=== PATIENT | female | born 1945 | race Caucasian/White ===

== ENCOUNTER 2016-12-29 18:29 | Inpatient (IN) | payer OTHER ==
[~2016-12-29] VITALS: Ht 144.8 cm; Wt 53.1 kg
--- NOTE | 2016-12-29 19:34 | NUR ---
PER WHO SPEAKS FOR PT, STATES THAT PT HAS BEEN SOB WITH ANY ACTIVITY SINCE LAST PM, WENT TO [facility] TODAY AND HAD TO STOP TO CATCH BREATH SEVERAL TIMES, WINDED UPON ARRIVAL TO ROOM.
[2016-12-29] MEDS ORDERED: ATORVASTATIN CA20 M1 PO (19:36)
[2016-12-29] MEDS ORDERED: PIOGLITAZONE HC15 MG PO (19:37)
[2016-12-29] MEDS ORDERED: LANSOPRAZOLE30 M2 PO (19:37)
[2016-12-29] MEDS ORDERED: FENOFIBRATE145 M1 PO (19:37)
[2016-12-29] MEDS ORDERED: JANUVIA100 M1 PO (19:37)
[2016-12-29] MEDS ORDERED: METOPROLOL SUCC25 M1 PO (19:37)
--- NOTE | 2016-12-29 19:50 | NUR ---
LABS YAMELW AND SENT SST,LAV,BLUE, AND BLAND DRAWN AND SENT
[2016-12-29 20:11] LABS: ABSOLUTE BASOPHIL COUNT 0 /CUMM (0.0-0.2); ABSOLUTE EOSINOPHIL COUNT 0.1 /CUMM (0.0-0.7); ABSOLUTE GRANULOCYTE CT 4.6 /CUMM (1.4-6.5); ABSOLUTE LYMPH COUNT 1.9 /CUMM (1.2-3.4); ABSOLUTE MONOCYTE COUNT 0.5 /CUMM (0.10-0.60); BASOPHIL % 0.4 % (0.0-2.0); GRANULOCYTE % 64.3 % (42.2-75.2); HEMATOCRIT 27.4 % (37-47); MEAN CORPUSCULAR HGB 27.3 PG (27.0-31.0); MEAN CORPUSCULAR HGB CONC 32.3 G/DL (33.0-37.0); MEAN CORPUSCULAR VOLUME 84.4 FL (81.0-99.0); MEAN PLATELET VOLUME 9.3 FL (7.4-10.4); PLATELET COUNT 264 /CUMM (130-400); RBC DISTRIBUTION WIDTH 15.5 % (11.5-14.5); RED BLOOD CELL CT 3.25 /CUMM (4.20-5.40); WHITE BLOOD CELL COUNT 7.2 /CUMM (4.8-10.8)
--- NOTE | 2016-12-29 20:13 | ED DYSPNEA/ASTHMA COMPLAINT ---
History of Present Illness General Chief Complaint: Dyspnea (COPD, CHF, Other) Stated Complaint: SOB; 02 95% AT [employer] Source: patient, family Exam Limitations: no limitations Vital Signs & Intake/Output Vital Signs & Intake/Output Vital Signs Date Time Temp Pulse Resp B/P Pulse O2 O2 Flow FiO2 Ox Delivery Rate 12/29 2019 96 12/29 1935 97.3 85 22 170/74 95 Room Air Allergies Coded Allergies: NO KNOWN ALLERGIES (12/29/16) Reconcile Medications Albuterol Sulfate (Proair Hfa) 90 MCG HFA.AER.AD 2 PUF INH Q4-6 PRN PRN ASTHMA (Reported) Aspirin (Ecotrin*) 81 MG TABLET.DR 1 TAB PO DAILY HEART (Reported) Atorvastatin Calcium 20 MG TABLET 1 TAB PO DAILY CHOL (Reported) Buspirone HCl 10 MG TABLET 10 MG PO DAILY ANXIETY (Reported) Dextroamphetamine/Amphetamine (Dextroamp-Amphetamine 5 MG Tab) 5 MG TABLET 1 TAB PO DAILY ADHD (Reported) Fenofibrate Nanocrystallized (Fenofibrate) 145 MG TABLET 1 TAB PO DAILY OSTEO (Reported) Furosemide (Lasix) 20 MG TABLET 1 TAB PO DAILY CHF Glimepiride 2 MG TABLET 1 TAB PO DAILY DM (Reported) Hydrochlorothiazide 25 MG TABLET 1 TAB PO DAILY HTN (Reported) Lansoprazole 30 MG CAPSULE.DR 1 CAP PO DAILY GERD (Reported) Losartan (Cozaar) 100 MG TABLET 100 MG PO DAILY HTN (Reported) Metformin HCl 500 MG TABLET 1,000 MG PO BID DM (Reported) Metoprolol Succinate 25 MG TAB 1 TAB PO DAILY HTN (Reported) Sitagliptin Phosphate (Januvia) 100 MG TABLET 1 TAB PO DAILY DM (Reported) Triage Note: PER WHO SPEAKS FOR PT, STATES THAT PT HAS BEEN SOB WITH ANY ACTIVITY SINCE LAST PM, WENT TO [facility] TODAY AND HAD TO STOP TO CATCH BREATH SEVERAL TIMES, WINDED UPON ARRIVAL TO ROOM. Triage Nurses Notes Reviewed? yes HPI: 71-year-old female history of asthma who started feeling short of breath last night, symptoms improved this morning. She went to [facility] today and throughout the day she was having significant dyspnea on exertion that was minimally improved with her inhaler and minimally improved with rest. She had to use her inhaler approximately 15 times today and stop to rest after walking a short distance. She denies any fever or flulike illness. She has a minimal cough without production. She has no leg swelling or edema. She has been eating more salty food lately and is on hydrochlorothiazide for blood pressure control. She has no history of heart failure. She denies any chest pain or fever. Her was sick with bronchitis last week. She is a nonsmoker. (IBIS LICEA) Past History Travel History Traveled to [place] past 21 day No Medical History Any Pertinent Medical History? see below for history Neurological: NONE EENT: NONE Cardiovascular: HTN,CHOL Respiratory: asthma Gastrointestinal: NONE Hepatic: NONE Renal: NONE Musculoskeletal: NONE Psychiatric: NONE Endocrine: DM Surgical History Surgical History: non-contributory Psychosocial History What is your primary language Japanese Tobacco Use: Never used Family History Hx Contributory? No (IBIS LICEA) Review of Systems Review of Systems Constitutional: Reports: see HPI. EENTM: Reports: no symptoms. Respiratory: Reports: see HPI. Cardiovascular: Reports: no symptoms. GI: Reports: no symptoms. Genitourinary: Reports: no symptoms. Musculoskeletal: Reports: no symptoms. Skin: Reports: no symptoms. Neurological/Psychological: Reports: no symptoms. Hematologic/Endocrine: Reports: no symptoms. Immunologic/Allergic: Reports: no symptoms. All Other Systems: Reviewed and Negative (IBIS LICEA) Physical Exam Physical Exam General Appearance: well developed/nourished Respiratory: chest non-tender Rectal: normal exam, heme positive stool (brown stool ) Comments: Well-developed well-nourished person in no acute distress HEENT: Normal EENT exam, extraocular motion intact, no nystagmus. Pupils equally round and reactive to light. Nose is atraumatic. Pharynx normal. No swelling or edema. Neck: Supple, no lymphadenopathy, normal range of motion without pain or tenderness Back: Nontender, no CVA tenderness. Full range of motion Cardiovascular: Regular rate and rhythms no murmurs, normal JVP Respiratory: Chest nontender. No respiratory distress. Crackles noted bilaterally right greater than left lower lungs. Abdomen: Soft, nontender nondistended, no appreciable organomegaly. Normal bowel sounds. No ascites Extremity: No edema, no calf tenderness to palpation, normal and equal pulses. Neuro: Alert oriented x3, motor sensory normal, cranial nerves II through XII grossly intact. Skin: No appreciable rash on exposed skin, skin is warm and dry. Psych: Mood and affect is normal, memory and judgment is normal. Core Measures ACS in differential dx? Yes Severe Sepsis Present: No Septic Shock Present: No (JAVIER VIGIL,IBIS) Progress Differential Diagnosis: asthma, AMI, altitude sickness, bronchitis, costochondritis, CHF, COPD, musculoskeletal pain, pericarditis, pulmonary embolism, pneumonia, pneumothorax, rib fracture, unstable angina Plan of Care: Orders Procedure Date/time Status URINALYSIS 12/29 2131 Active Add-on Test (ER Only) 12/29 2010 Active B-TYPE NATRIURETIC PEP (BNP) 12/29 1947 Complete TROPONIN LEVEL 12/29 1925 Complete LIPASE 12/29 1925 Complete HEPATIC FUNCTION PANEL 12/29 1925 Complete D-DIMER 12/29 1925 Complete CBC WITHOUT DIFFERENTIAL 12/29 1925 Complete BASIC METABOLIC PANEL 12/29 1925 Complete AMYLASE 12/29 1925 Complete EKG 12/29 1904 Active Laboratory Tests 12/29/162129: Urine Color Pending, Urine Clarity Pending, Urine pH Pending, Ur Specific [place] Pending, Urine Protein Pending, Urine Ketones Pending, Urine Nitrite Pending, Urine Bilirubin Pending, Urine Urobilinogen Pending, Ur Leukocyte Esterase Pending, Ur Microscopic SEDIMENT EXAMINED, Urine RBC Pending, Urine Hemoglobin Pending, Urine Glucose Pending 12/29/161947: Anion Gap 12, Estimated GFR 34 L, BUN/Creatinine Ratio 15.3, Glucose 159 H, Calcium 8.9, Total Bilirubin 0.4, Direct Bilirubin 0.4, AST 37 H, ALT 35, Alkaline Phosphatase 43, Troponin I 0.02, Qhz-K-Dtkluwwfnmw Pept 804 H, Total Protein 7.1, Albumin 3.8, Amylase 76, Lipase 419 H, D-Dimer 202, CBC w Diff NO MAN DIFF REQ, RBC 3.25 L, MCV 84.4, MCH 27.3, RDW 15.5 H, MPV 9.3, Gran % 64.3 , Lymphocytes % 26.5, Monocytes % 6.8, Eosinophils % 2.0, Basophils % 0.4, Absolute Granulocytes 4.6, Absolute Lymphocytes 1.9, Absolute Monocytes 0.5, Absolute Eosinophils 0.1, Absolute Basophils 0, PUBS MCHC 32.3 L Diagnostic Imaging: Viewed by Me: Radiology Read. Discussed w/RAD: Radiology Read. CXR Impression: PATIENT: HEISNER,NATHAN ANDREW PRESENT AGE: 71 PATIENT ACCOUNT NO: [id number] : 45 LOCATION: [facility] ORDERING PHYSICIAN: GONZALO GUERRERO MD SERVICE DATE: 12/29/16 EXAM TYPE: RAD - XRY-CHEST XRAY, PA AND LATERAL EXAMINATION: XR CHEST CLINICAL INFORMATION: Dyspnea. COMPARISON: Multiple priors, most recent chest radiographs dated 2013. TECHNIQUE: PA and lateral views of the chest were obtained. FINDINGS: There are increased bilateral interstitial markings, new since the prior examination. There is no focal consolidation. There are new trace bilateral pleural effusions. There is no pneumothorax. The cardiomediastinal silhouette is mildly enlarged. The visualized osseous structures are within normal limits. IMPRESSION: 1. New increased bilateral interstitial markings without focal consolidation. 2. New trace bilateral pleural effusions. 3. Mild cardiomegaly. DICTATED BY: YIMI MARTINO MD DATE/TIME DICTATED:12/29/162022 MECHANICAL ENGINEER:SOFÍA Initial ED EKG: NSR, rate (80), nonspecific ST T wave chg Prior EKG: unchanged Rhythm Strip: normal sinus rhythm Comments: DuoNeb treatment given minimal relief. Patient reevaluated, still with mild shortness of breath and crackles noted bilaterally X-rays consistent with CHF . BNP elevated 800, we'll treat with Lasix, this is new onset CHF. She has also new anemia and mildly heme-positive stool that is brown. She will need admission for workup of this as well. I do not feel as though she has an acute GI bleed. She is given Lasix 40 mg IV. patient will require admission to look telemetry service, Dr. Guerrero to call promotions specialist for admission (IBIS LICEA) Departure Departure Disposition: HOME OR SELF CARE Condition: Stable Clinical Impression Primary Impression: CHF (congestive heart failure) Qualifiers: Congestive heart failure type: unspecified congestive heart failure type Congestive heart failure chronicity: acute Qualified Code: I50.9 - Heart failure, unspecified Secondary Impressions: Anemia Qualifiers: Anemia type: unspecified type Qualified Code: D64.9 - Anemia, unspecified Heme positive stool Referrals: CRISTOFER GRAY,ANDREW Min (PCP/Family) Departure Forms: Customer Survey General Discharge Information Prescriptions: Current Visit Scripts Furosemide (Lasix) 1 TAB PO DAILY #30 TAB Admission Note Documentation of Exam: Documentation of any treatments & extenuating circumstances including Concerns Regarding Discharge (functional status, medication knowledge or non-compliance, living conditions, etc.) that warrant an admission rather than observation: Patient with new onset CHF, short of breath with exertion, new anemia with heme positive stool that is brown. She will require admission to the hospital. Cardiology evaluation, echo, IV Lasix, monitoring stool for blood. (IBIS LICEA) Admission Note [facility] Documentation of Exam: Documentation of any treatments & extenuating circumstances including Concerns Regarding Discharge (functional status, medication knowledge or non-compliance, living conditions, etc.) that warrant an admission rather than observation: pt with new onset chf as above, merits iv lasix, 02 support, and cardiology evaluation PA/SMOKE JUMPER Co-Sign Statement Statement: ED Attending supervision documentation- [x I saw and evaluated the patient. I have also reviewed all the pertinent lab results and diagnostic results. I agree with the findings and the plan of care as documented in the PA's/SMOKE JUMPER's documentation. [] I have reviewed the ED Record and agree with the PA's/SMOKE JUMPER's documentation. [] Additions or exceptions (if any) to the PAs/SMOKE JUMPER's note and plan are summarized below: [] (KT GRAY,GONZALO Jean) Critical Care Note Critical Care Note Critical Care Time: non-applicable (IBIS LICEA)
--- NOTE | 2016-12-29 20:31 | RADIOLOGY REPORT ---
EXAMINATION: XR CHEST CLINICAL INFORMATION: Dyspnea. COMPARISON: Multiple priors, most recent chest radiographs dated 03/04/2014. TECHNIQUE: PA and lateral views of the chest were obtained. FINDINGS: There are increased bilateral interstitial markings, new since the prior examination. There is no focal consolidation. There are new trace bilateral pleural effusions. There is no pneumothorax. The cardiomediastinal silhouette is mildly enlarged. The visualized osseous structures are within normal limits. IMPRESSION: 1. New increased bilateral interstitial markings without focal consolidation. 2. New trace bilateral pleural effusions. 3. Mild cardiomegaly.
--- NOTE | 2016-12-29 20:57 | NUR ---
PER RESIDENT SHAJI +. REMAINS SOB AT REST, PT VERY ANXIOUS. ALERT
--- NOTE | 2016-12-29 21:44 | NUR ---
MD AT BEDSIDE/ EMOTIONAL SUPPORT GIVEN, PT AND EDUCATED ON CHF.
--- NOTE | 2016-12-29 22:30 | NUR ---
HOUSESTAFF AT BEDSIDE,
[2016-12-29] MEDS ORDERED: METFORMIN HCL500 M3 PO (22:50)
[2016-12-29] MEDS ORDERED: HYDROCHLOROTHIA25 M1 PO (22:51)
[2016-12-29] MEDS ORDERED: PROAIR HFA8.5 GM INH (22:51)
[2016-12-29] MEDS ORDERED: DEXTROAMP-AMPHET5 MG PO (22:51)
[2016-12-29] MEDS ORDERED: ASPIRIN EC81 M1 PO (22:52)
--- NOTE | 2016-12-29 22:52 | NUR ---
MED LIST UPDATED JUST ARRIVED WITH LIST.
--- NOTE | 2016-12-29 23:15 | History & Physical ---
STONEY GRAY,[facility]AN[facility] MD [facility] 12/29/16 2310: General Information and HPI MD Statement: I have seen and personally examined NATHAN TIDWELL and documented this H&P. The patient is a 71 year old F who presented with a patient stated chief complaint of [shortness of breath upon walking]. Source of Information: patient Exam Limitations: no limitations History of Present Illness: This is a 71-year-old female with a past medical history significant for diabetes recent HbA1c of 8 per patient, hypertension, hyperlipidemia, asthma, GERD, that presented to the emergency room this evening with a chief complaint of shortness of breath upon exertion. Off note, patient has never been admitted to [facility] before. Patient states that today she went with her family to near [facility] and noted that she had to catch her breath after every half a city block. She thought this was secondary to her asthma and Using her inhaler up to 10 times throughout the day. She came home this evening and her dyspnea persisted this bite again using inhalers and presented to the emergency room. Denied any chest pain, nausea, vomiting, diarrhea fevers or chills. Has denied such episode before or asthma related admission or intubation. In the emergency room her chest x-ray revealed pleural effusions with an elevated proBNP and she was given Lasix with adequate diuresis. Upon my examination of the patient she stated that her dyspnea has significantly improved. PCP- Dr. Umu Thayer Endo- Dr. Nathaniel Peralta Allergies/Medications Allergies: Coded Allergies: NO KNOWN ALLERGIES (12/29/16) Past History Travel History Traveled to [place] past 21 day No Medical History Blood Transfusion Hx: No Neurological: NONE EENT: NONE Cardiovascular: HTN,CHOL Respiratory: asthma Gastrointestinal: NONE Hepatic: NONE Renal: NONE Musculoskeletal: NONE Psychiatric: NONE Endocrine: DM Surgical History Surgical History: non-contributory Past Family/Social History Family History Relations & Conditions if any FATHER, ; Cause: Myocardial infarct. MOTHER, ; Cause: Dementia. Psychosocial History Where do you live? Home Who Do You Live With? spouse Services at Home: Oxygen Primary Language: Montenegrin Smoking Status: Never Smoked ETOH Use: occasional use Illicit Drug Use: denies illicit drug use Functional Ability ADLs Independent: dressing, eating, toileting, bathing. IADLs Independent: shopping, housework, finances, food prep, telephone, transportation , medication admin. Employment History Employment Retired Review of Systems Review of Systems Constitutional: Reports: see HPI. Exam & Diagnostic Data Last 24 Hrs of Vital Signs/I&O Vital Signs Date Time Temp Pulse Resp B/P Pulse O2 O2 Flow FiO2 Ox Delivery Rate 12/299 97.6 73 18 162/72 99 Room Air 12/29 2019 96 12/29 1935 97.3 85 22 170/74 95 Room Air Physical Exam General Appearance Alert, Oriented X3, Cooperative, No Acute Distress Skin No Rashes, No Breakdown HEENT Atraumatic, PERRLA, EOMI Neck No JVD, No thryomegaly Cardiovascular Regular Rate, Normal S1, Normal S2, No Murmurs Lungs Normal Air Movement, faint bi-basilar crackles Abdomen Normal Bowel Sounds, Soft, No Tenderness, No Hepatospenomegaly, No Masses Neurological Normal Speech, Strength at 5/5 X4 Ext, Normal Tone, Sensation Intact, Cranial Nerves 3-12 NL, Reflexes 2+ Extremities No Clubbing, No Cyanosis, trace b/l LE edema Last 24 Hrs of Labs/Gutierrez: Laboratory Tests 12/29/162129: Urine Color YEL, Urine Clarity CLEAR, Urine pH 6.0, Ur Specific [place] 1.020, Urine Protein NEG, Urine Ketones NEG, Urine Nitrite NEG, Urine Bilirubin NEG, Urine Urobilinogen 0.2, Ur Leukocyte Esterase NEG, Ur Microscopic SEDIMENT EXAMINED, Urine RBC 3-5, Urine Hemoglobin TRACE-INTACT, Urine Glucose NEG 12/29/16 1948: Anion Gap 12, Estimated GFR 34 L, BUN/Creatinine Ratio 15.3, Glucose 159 H, Calcium 8.9, Total Bilirubin 0.4, Direct Bilirubin 0.4, AST 37 H, ALT 35, Alkaline Phosphatase 43, Troponin I 0.02, Gan-Y-Bguzsiiljfu Pept 804 H, Total Protein 7.1, Albumin 3.8, Amylase 76, Lipase 419 H, D-Dimer 202, CBC w Diff NO MAN DIFF REQ, RBC 3.25 L, MCV 84.4, MCH 27.3, RDW 15.5 H, MPV 9.3, Gran % 64.3 , Lymphocytes % 26.5, Monocytes % 6.8, Eosinophils % 2.0, Basophils % 0.4, Absolute Granulocytes 4.6, Absolute Lymphocytes 1.9, Absolute Monocytes 0.5, Absolute Eosinophils 0.1, Absolute Basophils 0, PUBS MCHC 32.3 L Diagnostic Data EKG Results Rate 61, [place] 144, QRS 78, QTC 456 Sinus rhythm CXR Results IMPRESSION: 1. New increased bilateral interstitial markings without focal consolidation. 2. New trace bilateral pleural effusions. 3. Mild cardiomegaly. Assessment/Plan Assessment: In summary this is a 71-year-old female the past medical history significant for hypertension, hyperlipidemia, diabetes, asthma that presented today with dyspnea on exertion with alleviation at rest. She tried using her inhaler multiple times greater than 10 with no alleviation of her symptoms. She presented to the emergency room was found to have bibasilar crackles on exam, pleural effusions on chest x-ray and a proBNP of greater than 800. She was given 40 mg of IV Lasix and has diuresis 970 mL thus far with modest alleviation of her symptoms. She holds no previous history of any cardiovascular disease apart from hypertension but does have a family history of a myocardial infarction in her father. This could likely be new onset congestive heart failure, she has no previous echocardiogram in our EMR system Neider that she see a division controller. Assessment- 1. Congestive heart failure, new onset 2. Hypertension 3. Hyperlipidemia 4. Chronic asthma 5. Possible GENI on CKD (baseline creatinine unknown) 6. Diabetes mellitus 7. Anemia, likely chronic 8. Elevated lipase, 419, without any signs or symptoms of abdominal discomfort, unrelated Plan- Admit to telemetry Trending troponin and EKG Will hold Lasix for now, recheck renal function in the morning and decide dose accordingly Echocardiogram Strict I's and O's Daily weight Low-salt/CHF diet Continue beta nabila, hold hydrochlorothiazide Continue statin, hold fibrate TRC evaluation and nebs Accu-Cheks and low-dose insulin sliding scale Will check thyroid studies, iron studies, HbA1c with morning labs DVT prophylaxis with subcutaneous heparin Mild pain when necessary pathway CHF diet Full code Will need records from her PCP and ingot buggy operator in the morning to evaluate her anemia and renal function As Ranked By This Provider Problem List: 1. CHF (congestive heart failure) Qualifiers Congestive heart failure type: unspecified congestive heart failure type Congestive heart failure chronicity: acute Qualified Code: I50.9 - Heart failure , unspecified 2. Anemia Qualifiers Anemia type: unspecified type Qualified Code: D64.9 - Anemia, unspecified Core Measures/Miscellaneous Acute Coronary Syndrome ACS Diagnosis: No Cerebrovascular Accident CVA/TIA Diagnosis: No Congestive Heart Failure CHF Diagnosis: Yes JAVED/ARB for EF <40%: No Venous Thromboembolism VTE Risk Factors: Age > 40 VTE Prophylaxis Ordered Inpt: [facility] prophylaxis d/t: No contraindications No VTE Pharm Prophylaxis d/t: No contraindications VTE Diagnosis: No VTE Type: NONE VTE Confirmed by (Test): NONE Severe Sepsis Severe Sepsis Present: No Septic Shock Septic Shock Present: No Miscellaneous Documentation Attending Case Discussed With: Dr. Pollard Primary Care Physician: UMU [place] MD Patient sees these Specialists Endo- Dr. Nathaniel Peralta Level of Patient Care: Telemetry Resident Review Statement Resident Statement: examined this patient, discussed with cad intern CARLY RAMOS MD 12/30/16 1137: Exam & Diagnostic Data Last 24 Hrs of Vital Signs/I&O Vital Signs Date Time Temp Pulse Resp B/P Pulse O2 O2 Flow FiO2 Ox Delivery Rate 12/30 0902 118/66 12/30 0800 98.1 70 18 118/66 95 Room Air 12/30 0215 97.6 78 20 142/72 95 Room Air 12/30 0150 Room Air 12/30 0031 72 20 155/70 98 Room Air 12/29 2239 97.6 73 18 162/72 99 Room Air 12/29 2020 96 12/29 1936 97.3 85 22 170/74 95 Room Air Intake & Output 12/30 1600 12/30 0800 12/30 0000 Intake Total 300 Output Total 570 970 Balance -270 -970 Intake, Oral 300 Output, Urine 570 970 Patient 120 lb 135 lb Weight Attending MD Review Statement Attending Statement Attending MD Statement: examined this patient, discuss w/resident/PA/SALES CONTRACTS ANALYST, agreed w/resident/PA/SALES CONTRACTS ANALYST, discussed with family, reviewed EMR data (avail), discussed with nursing, reviewed images Attending Assessment/Plan: The patient is a 71-year-old woman with a past medical history of diabetes mellitus, hypertension, hyperlipidemia who presents with new onset congestive heart failure. The etiology at this time is unclear, and there was no clear precipitating factors of dietary indiscretion. Given her cardiac risk equivalence, a further workup including an echocardiogram as well as stress testing to exclude a burden of ischemia (nuclear stress testing) will be performed. The patient is well has significant iron deficiency anemia follow-up for this will be obtained, including possible consultation with GI. The patient appears to is well has mild renal dysfunction. We will obtain prior history to determine the chronicity of the same. An JAVED inhibitor/ARB will not be initiated at this time due to the same. KAREN GRAY,[facility] 02/17/17 1142: General Information and HPI Allergies/Medications Home Med list Albuterol Sulfate (Proair Hfa) 90 MCG HFA.AER.AD 2 PUF INH Q4-6 PRN PRN ASTHMA (Reported) Aspirin (Ecotrin*) 81 MG TABLET.DR 1 TAB PO DAILY HEART (Reported) Atorvastatin Calcium 20 MG TABLET 1 TAB PO DAILY CHOL (Reported) Buspirone HCl 10 MG TABLET 10 MG PO DAILY ANXIETY (Reported) Dextroamphetamine/Amphetamine (Dextroamp-Amphetamine 5 MG Tab) 5 MG TABLET 1 TAB PO DAILY ADHD (Reported) Fenofibrate Nanocrystallized (Fenofibrate) 145 MG TABLET 1 TAB PO DAILY OSTEO (Reported) Furosemide (Lasix) 20 MG TABLET 1 TAB PO DAILY CHF Glimepiride 2 MG TABLET 1 TAB PO DAILY DM (Reported) Hydrochlorothiazide 25 MG TABLET 1 TAB PO DAILY HTN (Reported) Lansoprazole 30 MG CAPSULE.DR 1 CAP PO DAILY GERD (Reported) Losartan (Cozaar) 100 MG TABLET 100 MG PO DAILY HTN (Reported) Metformin HCl 500 MG TABLET 1,000 MG PO BID DM (Reported) Metoprolol Succinate 25 MG TAB 1 TAB PO DAILY HTN (Reported) Sitagliptin Phosphate (Januvia) 100 MG TABLET 1 TAB PO DAILY DM (Reported) Addendum Addendum This document was sent to me in error, patient was seen by another attending physician. I personally notified medical records. Samir Pollard MD [facility]
--- NOTE | 2016-12-30 00:31 | NUR ---
12 AM TROP AND EKG DONE NO DIFF URINATING.
--- NOTE | 2016-12-30 00:38 | NUR ---
FINGERSTICK GLUCOSE LEVEL READING 70
--- NOTE | 2016-12-30 00:42 | NUR ---
REPORT TO TELE. PT STABLE FBS 70 PER WOULD LIKE PT TO HAVE SOMETHING FOR THAT BS. GIVEN O.J.
--- NOTE | 2016-12-30 00:43 | NUR ---
TOTAL OUTPUT S/P LASIX 1030 CCS
--- NOTE | 2016-12-30 01:08 | NUR ---
PT ASSIGNED TO ROOM 179-1
[2016-12-30 02:15] VITALS: BP 142/72
--- NOTE | 2016-12-30 03:02 | NUR ---
PT C\O LLE PAIN/CRAMPING, ON BACK OF CALF AND THIGH. NO REDNESS OR SWELLING NOTED. PT STATES SHE SOMETIMES GETS THIS AT HOME BUT NOT VERY FREQUENTLY. SHE REPORTS SHE HAS HAD THIS PAIN X3 SINCE COMING TO [facility]. PT VERY UNCOMFORTBLE AND IN PAIN. DR FRANCISCO NOTIFIED, SHE WILL COME SEE THIS PATIENT. WILL CONTINUE TO MONITOR. NEW ORDER OBTAINED FOR TYLENOL AND FLEXERIL.
[2016-12-30 08:00] VITALS: BP 118/66
--- NOTE | 2016-12-30 08:06 | PN- Housestaff ---
Subjective Follow-up For: CHF exacerbation Anemia? Tele-Events Since Last Visit: No acute telemetry events reported overnight. Patient was in sinus rhythm with heart rates averaging 70s. Subjective: Pt is seen and examined at bedside. He does not endorse any acute complaints including chest pain, shortness of breath, palpitation, fever, chills, nausea, abdominal pain, dysuria. She states that her breathing is way much better compared to time of admit. No acute overnight event reported by nursing staff. Review of Systems Constitutional: Reports: see HPI. Objective Last 24 Hrs of Vital Signs/I&O Vital Signs Date Time Temp Pulse Resp B/P Pulse O2 O2 Flow FiO2 Ox Delivery Rate 12/30 0215 97.6 78 20 142/72 95 Room Air 12/30 0150 Room Air 12/30 0031 72 20 155/70 98 Room Air 12/29 2239 97.6 73 18 162/72 99 Room Air 12/29 2020 96 12/29 1936 97.3 85 22 170/74 95 Room Air Intake & Output 12/30 1600 12/30 0800 12/30 0000 Intake Total 300 Output Total 570 970 Balance -270 -970 Intake, Oral 300 Output, Urine 570 970 Patient 54.431 kg 61.235 kg Weight Physical Exam General Appearance: Alert, Oriented X3, Cooperative, No Acute Distress Skin: No Significant Lesion HEENT: Atraumatic, EOMI, Mucous Membr. moist/pink Neck: Supple, No JVD, +2 Carotid Pulse wo Bruit Lymphatic: Cervical nl Cardiovascular: Regular Rate, systolic murmur Lungs: mild bibasilar crackles Abdomen: Normal Bowel Sounds, Soft, No Tenderness Neurological: Normal Speech, Sensation Intact Extremities: No Edema, Normal Pulses Vascular: Pulses Symmetrical Last 24 Hrs of Lab/Gutierrez Results Last 24 Hrs of Labs/Mics: Laboratory Tests 12/30/16 0655: Hemoglobin A1c Pending 12/30/16 0655: Iron 51, TIBC 559 H, Ferritin Pending, Troponin I 0.01, TSH Pending, Free T4 Pending 12/30/16 0030: Troponin I < 0.01 12/29/16 2130: Urine Color YEL, Urine Clarity CLEAR, Urine pH 6.0, Ur Specific [place] 1.020, Urine Protein NEG, Urine Ketones NEG, Urine Nitrite NEG, Urine Bilirubin NEG, Urine Urobilinogen 0.2, Ur Leukocyte Esterase NEG, Ur Microscopic SEDIMENT EXAMINED, Urine RBC 3-5, Urine Hemoglobin TRACE-INTACT, Urine Glucose NEG 12/29/161947: Anion Gap 12, Estimated GFR 34 L, BUN/Creatinine Ratio 15.3, Glucose 159 H, Calcium 8.9, Total Bilirubin 0.4, Direct Bilirubin 0.4, AST 37 H, ALT 35, Alkaline Phosphatase 43, Troponin I 0.02, Arp-Z-Xjpqojfeshl Pept 804 H, Total Protein 7.1, Albumin 3.8, Amylase 76, Lipase 419 H, D-Dimer 202, CBC w Diff NO MAN DIFF REQ, RBC 3.25 L, MCV 84.4, MCH 27.3, RDW 15.5 H, MPV 9.3, Gran % 64.3 , Lymphocytes % 26.5, Monocytes % 6.8, Eosinophils % 2.0, Basophils % 0.4, Absolute Granulocytes 4.6, Absolute Lymphocytes 1.9, Absolute Monocytes 0.5, Absolute Eosinophils 0.1, Absolute Basophils 0, PUBS MCHC 32.3 L Assessment/Plan Assessment: The patient is a 71-year-old pleasent lady with a past medical history of diabetes mellitus, hypertension, hyperlipidemia who presents with new clinical symptoms and radiological signs suggestive of new onset congestive heart failure. Patient lab work is also remarkable for anemia which is presumed to be chronic an iron deficiency component. Patient also has elevated creatinine, no baseline level is there to determine whether this is acute or chronic. Assessment and plan #New onset CHF Patient presentation of dyspnea elevated proBNP, and chest x-ray findings of cardiomegaly and bilateral interstitial marking suggestive of CHF. Patient does not report any chest pain, does not have any recent history of ACS. Troponins and EKG are unremarkable for any possible ACS. Plan * We'll continue IV furosemide 40 mg Diuresis * Strict in and out * Daily BP to monitor for electrolytes and renal function in the setting of furosemide use * Will obtain echo cardiogram * Will plan for stress test as recommended by cardiology to assess for ischemia #Anemia Elevated TIBC with low ferritin is suggestive of iron deficiency anemia. Possibly chronic. Will need to do a guaiac test to assess for possible GI causes. Plan * Will trend CBCs * Obtain guaiac * Will consider GI consult if patient H&H drops and guaiac is positive. #Hyperlipasemia Patient presenting with any abdominal pain including biliary pain or any signs of gastroenteritis. In the setting of anemia which we currently do not know his etiology, may consider ruling out duodenal ulcer as possible cause of elevated lipase. Plan * Will consider GI Problem List: 1. CHF (congestive heart failure) 2. Anemia Pain Ratin Pain Location: None Pain Goal: Remain pain free Pain Plan: APAP for mild pain, oxycodone for moderate pain Tomorrow's Labs & Rationales: BEP-of furosemide therapy CBCs-trending anemia
[2016-12-30] MEDS ORDERED: COZAAR100 M1 PO (09:08)
[2016-12-30] MEDS ORDERED: GLIMEPIRIDE2 MG PO (09:09)
[2016-12-30] MEDS ORDERED: BUSPIRONE HCL10 M1 PO (09:10)
[2016-12-30 15:43] VITALS: BP 138/76
[2016-12-30 21:25] VITALS: BP 130/78
[2016-12-31 07:00] VITALS: BP 122/64
--- NOTE | 2016-12-31 07:17 | PN- Housestaff ---
Subjective Follow-up For: CHF exacerbation Anemia? Complaints: no complaints Tele-Events Since Last Visit: NSR Subjective: Patient is seen and examined at the bed side. She is not having any active complains. Review of Systems Constitutional: Denies: no symptoms. EENTM: Denies: no symptoms. Cardiovascular: Denies: no symptoms. Respiratory: Denies: no symptoms. Gastrointestinal: Denies: no symptoms. Genitourinary: Denies: no symptoms. Musculoskeletal: Denies: no symptoms. Skin: Denies: no symptoms. Neurological/Psychological: Denies: no symptoms. Objective Last 24 Hrs of Vital Signs/I&O Vital Signs Date Time Temp Pulse Resp B/P Pulse O2 O2 Flow FiO2 Ox Delivery Rate 12/31 0806 65 128/72 12/31 0700 64 122/64 12/30 2125 98.5 71 20 130/78 94 Room Air Intake & Output 12/31 1600 12/31 0800 12/31 0000 Intake Total 490 480 Output Total 300 900 Balance 190 -420 Intake, IV 10 Intake, Oral 480 480 Output, Urine 300 900 Patient 53.07 kg Weight Physical Exam General Appearance: Alert, Oriented X3, Cooperative, No Acute Distress Skin: No Rashes, No Breakdown HEENT: Atraumatic, PERRLA, EOMI Neck: Supple, No JVD Cardiovascular: Normal S1, Normal S2 Lungs: Clear to Auscultation, Normal Air Movement Abdomen: Soft, No Tenderness Neurological: Normal Speech Extremities: No Clubbing, No Cyanosis, No Edema Assessment/Plan Assessment: The patient is a 71-year-old pleasent lady with a past medical history of diabetes mellitus, hypertension, hyperlipidemia who presents with new clinical symptoms and radiological signs suggestive of new onset congestive heart failure. Patient lab work is also remarkable for anemia which is presumed to be chronic an iron deficiency component. Patient also has elevated creatinine, no baseline level is there to determine whether this is acute or chronic. Assessment and plan - We will discharge today. We advised to follow up with hide curer with in a week of discharge for ECho and further management. We will stop IV lasix and start her on Furosemide 20 mg OD We will also stop pioglitazone and advised to f/u with On Site Nurse for further Management. We Will plan for stress test as recommended by cardiology to assess for ischemia Elevated TIBC with low ferritin is suggestive of iron deficiency anemia. As stool for occult blood is positive, advised for GI evaluation as an Outpatient. Diet - low salt diet, heart Healthy diet. Code status -FC Problem List: 1. Anemia 2. CHF (congestive heart failure) Pain Ratin Pain Location: none Pain Goal: Remain pain free Pain Plan: Avoid NSAIDS Tomorrow's Labs & Rationales: none DVT/Prophylaxis: mechanical
[2016-12-31 08:06] VITALS: BP 128/72
--- NOTE | 2016-12-31 09:53 | Patient Discharge Instructions ---
Discharge Instructions General Discharge Information You were seen/treated for: Congestive heart failure and anemia Special Instructions: Please follow-up with your PCP within a week of discharge Please follow-up with your criminal profiler for further management You may need echocardiogram as an outpatient. We stopped Pioglitazone, your diabetes medication, as it affect heart. Please follow up with your diabetes doctor for further management. Diet Continue normal diet: No Recommended Diet: Heart Healthy Activity Full Activity/No Limits: No (as tolerated) Acute Coronary Syndrome Inclusion Criteria At DC or during hospital stay patient has or had the following: ACS DIAGNOSIS No Discharge Core Measures Meds if any: Prescribed or Continued at Discharge Meds if any: NOT Prescribed or Continued at Discharge Congestive Heart Failure Inclusion Criteria At DC or during hospital stay patient has or had the following: CHF DIAGNOSIS Yes Discharge Core Measures Meds if any: Prescribed or Continued at Discharge Meds if any: NOT Prescribed or Continued at Discharge Cerebrovascular accident Inclusion Criteria At DC or during hospital stay patient has or had the following: CVA/TIA Diagnosis No Discharge Core Measures Meds if any: Prescribed or Continued at Discharge Meds if any: NOT Prescribed or Continued at Discharge Venous thromboembolism Inclusion Criteria VTE Diagnosis No VTE Type NONE VTE Confirmed by (Test) NONE Discharge Core Measures - Per Current guidelines, there needs to be overlap - treatment for the first 5 days of Warfarin therapy. - If discharged on Warfarin prior to 5 days of - overlap therapy, the patient will need to be - assessed for post discharge needs including - *Post discharge parental anticoagulation - *Warfarin and/or parental anticoagulation education - *Follow up date to check INR post discharge At least 5 days overlap therapy as Inpatient No Meds if any: Prescribed or Continued at Discharge Warfarin No Note: Overlap Therapy is Warfarin and Anticoagulant Meds if any: NOT Prescribed or Continued at Discharge
[2016-12-31] MEDS ORDERED: LASIX20 M1 PO (10:03)
--- NOTE | 2016-12-31 10:08 | PN- Att Addend ---
Attending Addendum Attending Brief Note Patient feels much better. She denies chest pain or shortness of breath Vital signs stable Neck supple no JVD Lungs clear Heart regular rhythm S1 and S2 are normal Abdomen benign Extremities without edema Assessment 1. New onset congestive heart failure stable 2. Mild renal insufficiency etc. 3. Hypertension Recommendations 1. As discussed with the patient to be discharged called the office to arrange for an echocardiogram and stress test.
--- NOTE | 2016-12-31 10:27 | Discharge Summary ---
Visit Information Visit Dates Admission Date: 12/30/16 Discharge Date: 12/31/2016 Hospital Course Course Attending Physician: ALPHONSO JONES MD Primary Care Physician: ANDREW CLEVELAND MD Hospital Course: This is a 71-year-old female with a past medical history significant for diabetes recent HbA1c of 8 per patient, hypertension, hyperlipidemia, asthma, GERD, that presented to the emergency room with a chief complaint of shortness of breath upon exertion Vital signs at the time of admission-temperature 97.3, pulse 85, respiration 22, blood pressure 170/74, SPO2 95% on room air. New-onset congestive heart failure On further evaluation, CBC showed Hb 8.9, BEP was in normal limits, creatinine was 1.6, serial troponins were negative and EKG showed no any acute ST-T wave changes. Chest x-ray was showing increased bilateral interstitial marking without focal consolidation, new trace bilateral pleural effusion and mild cardiomegaly. ProBNP was elevated to 804. We gave the patient IV Lasix, oxygen, and kept her on telemetry monitoring for 24 hours. We continued all her home medication including insulin. Patient responded well to IV Lasix later we switched to by mouth Lasix and We discharged the patient with advice to follow with a log yard derrick operator within a week of discharge for further evaluation including echocardiogram and stress test and management. We also stopped her tablet pioglitazone, as it make patient more prone to CHF. Complications: none Allergies: Coded Allergies: NO KNOWN ALLERGIES (12/29/16) Disposition Summary Disposition Principal Diagnosis: New-onset congestive heart failure Additional Diagnosis: Hypertension Hyperlipidemia Chronic asthma Possible GENI on CKD (baseline creatinine unknown) Diabetes mellitus chronic anemia Discharge Disposition: home or self care Discharge Instructions General Discharge Information Code Status: Full Code Patient's Diet: Heart healthy diet with fluid restriction Patient's Activity: As tolerated Follow-Up Instructions/Appts: Please follow-up with your PCP within a week of discharge Please follow-up with your log yard derrick operator for further management You may need echocardiogram as an outpatient. We stopped Pioglitazone, your diabetes medication, as it affect heart. Please follow up with your diabetes doctor for further management. Medications at Discharge Discharge Medications: Stop taking the following medications: Pioglitazone HCl (Pioglitazone HCl) 15 MG TABLET ORAL DAILY Qty = 90 Continue taking these medications: Atorvastatin Calcium (Atorvastatin Calcium) 20 MG TABLET 1 Tablet ORAL DAILY Qty = 90 Comments: Last Taken: 12/31/16 Time: 0800 Lansoprazole (Lansoprazole) 30 MG CAPSULE.DR 1 Capsule ORAL DAILY Qty = 90 Comments: NOT TAKEN IN HOSPITAL Metoprolol Succinate (Metoprolol Succinate) 25 MG TAB 1 Tablet ORAL DAILY Qty = 180 Comments: Last Taken: 12/31/16 Time: 0800 Fenofibrate Nanocrystallized (Fenofibrate) 145 MG TABLET 1 Tablet ORAL DAILY Qty = 90 Comments: NOT TAKEN IN HOSPITAL Sitagliptin Phosphate (Januvia) 100 MG TABLET 1 Tablet ORAL DAILY Qty = 90 Comments: NOT TAKEN IN HOSPITAL Metformin HCl (Metformin HCl) 500 MG TABLET 1,000 Milligram ORAL TWICE DAILY Qty = 360 Comments: NOT TAKEN IN HOSPITAL Hydrochlorothiazide (Hydrochlorothiazide) 25 MG TABLET 1 Tablet ORAL DAILY Qty = 90 Comments: NOT TAKEN IN HOSPITAL Dextroamphetamine/Amphetamine (Dextroamp-Amphetamine 5 MG Tab) 5 MG TABLET 1 Tablet ORAL DAILY Qty = 180 Comments: NOT TAKEN IN HOSPITAL Albuterol Sulfate (Proair Hfa) 90 MCG HFA.AER.AD 2 Puff Inhale through mouth EVERY 4-6 HOURS NEEDED as needed for ASTHMA Qty = 25 Aspirin (Ecotrin*) 81 MG TABLET.DR 1 Tablet ORAL DAILY Comments: Last Taken: 12/31/16 Time: 0800 Losartan (Cozaar) 100 MG TABLET 100 Milligram ORAL DAILY Comments: NOT TAKEN IN HOSPITAL Glimepiride (Glimepiride) 2 MG TABLET 1 Tablet ORAL DAILY Comments: NOT TAKEN IN HOSPITAL Buspirone HCl (Buspirone HCl) 10 MG TABLET 10 Milligram ORAL DAILY Comments: NOT TAKEN IN HOSPITAL Start taking the following new medications: Furosemide (Lasix) 20 MG TABLET 1 Tablet ORAL DAILY Qty = 30 No Refills Copies To: CRISTOFER GRAY,ANDREW Min; YVON GRAY,URMILA Meza Attending MD Review Statement Documenting Attending: ALPHONSO JONES MD Other Findings: This document was sent to me in error, patient was seen by another attending physician. I personally notified medical records. Samir Jones MD [facility]
== END 2016-12-31 12:08 | DRG 292 ==
LOC: ENRESERVDT → ENRESERVTM → ERH 18:29 → ERHI 12-30 00:15 → 1NO 12-30 00:15 → ENPENDDIS 12-30 00:15 → 1NO 12-30 01:17
PROVIDERS: Pediatrics; ADMIT Internal Medicine
DX: I13.0 Hypertensive heart and chronic kidney disease with heart failure and stage 1 through stage 4 chronic kidney disease, or unspecified chronic kidney disease (principal); N17.9 Acute kidney failure, unspecified; I50.9 Heart failure, unspecified; E78.5 Hyperlipidemia, unspecified; J45.909 Unspecified asthma, uncomplicated; N18.9 Chronic kidney disease, unspecified; D53.9 Nutritional anemia, unspecified
CPT/HCPCS: 1NSP; 36415; 81001; 82436; 93005; 93010; 96374; J1644; J1940; J3490

== ENCOUNTER 2017-05-13 23:34 | Inpatient (IN) | payer OTHER ==
[~2017-05-13] VITALS: Ht 165.1 cm; Wt 65.8 kg
[~2017-05-13 23:34] MED LIST: ASPIRIN EC81 M1 PO; ATORVASTATIN CA20 M1 PO; BUSPIRONE HCL10 M1 PO; COZAAR100 M1 PO; DEXTROAMP-AMPHET5 MG PO; FENOFIBRATE145 M1 PO; GLIMEPIRIDE2 MG PO; HYDROCHLOROTHIA25 M1 PO; JANUVIA100 M1 PO; LANSOPRAZOLE30 M2 PO; LASIX20 M1 PO; METFORMIN HCL500 M3 PO; METOPROLOL SUCC25 M1 PO; PIOGLITAZONE HC15 MG PO; PROAIR HFA8.5 GM INH
--- NOTE | 2017-05-13 23:48 | NUR ---
PT BIBA INCREASING CONFUSION AND LETHARGY. PT STATES PT STARTED FEELING SICK ON FRIDAY WITH SOB ON EXERTION. PT CALLED DOCTOR AND WAS TOLD TO "TAKE IT EASY". PT STATES THAT TODAY PT WAS FEVERISH AND FEELING VERY TIRED. PT ARRIVES ALERT, LETHARGIC, BUT ORIENTED TO PERSON PLACE AND TIME.
--- NOTE | 2017-05-14 00:04 | ED DYSPNEA/ASTHMA COMPLAINT ---
See Addendum History of Present Illness General Chief Complaint: Dyspnea (COPD, CHF, Other) Stated Complaint: BIBA SOB Source: patient, family, old records, EMS Exam Limitations: clinical condition, poor historian Allergies Coded Allergies: NO KNOWN ALLERGIES (12/29/16) Reconcile Medications Albuterol Sulfate (Proair Hfa) 90 MCG HFA.AER.AD 2 PUF INH Q4-6 PRN PRN ASTHMA (Reported) Aspirin (Ecotrin*) 81 MG TABLET.DR 1 TAB PO DAILY HEART (Reported) Atorvastatin Calcium 20 MG TABLET 1 TAB PO DAILY CHOL (Reported) Buspirone HCl 10 MG TABLET 10 MG PO DAILY ANXIETY (Reported) Dextroamphetamine/Amphetamine (Dextroamp-Amphetamine 5 MG Tab) 5 MG TABLET 1 TAB PO DAILY ADHD (Reported) Fenofibrate Nanocrystallized (Fenofibrate) 145 MG TABLET 1 TAB PO DAILY OSTEO (Reported) Furosemide (Lasix) 20 MG TABLET 1 TAB PO DAILY CHF Glimepiride 2 MG TABLET 1 TAB PO DAILY DM (Reported) Hydrochlorothiazide 25 MG TABLET 1 TAB PO DAILY HTN (Reported) Lansoprazole 30 MG CAPSULE.DR 1 CAP PO DAILY GERD (Reported) Losartan (Cozaar) 100 MG TABLET 100 MG PO DAILY HTN (Reported) Metformin HCl 500 MG TABLET 1,000 MG PO BID DM (Reported) Metoprolol Succinate 25 MG TAB 1 TAB PO DAILY HTN (Reported) Sitagliptin Phosphate (Januvia) 100 MG TABLET 1 TAB PO DAILY DM (Reported) Triage Note: PT BIBA INCREASING CONFUSION AND LETHARGY. PT STATES PT STARTED FEELING SICK ON FRIDAY WITH SOB ON EXERTION. PT CALLED DOCTOR AND WAS TOLD TO "TAKE IT EASY". PT STATES THAT TODAY PT WAS FEVERISH AND FEELING VERY TIRED. PT ARRIVES ALERT, LETHARGIC, BUT ORIENTED TO PERSON PLACE AND TIME. Triage Nurses Notes Reviewed? yes Unable To Obtain Hx Due To: patient confusion Onset: Abrupt Duration: hour(s):, constant, continues in ED, getting worse Timing: single episode today Severity: moderate, severe Activities at Onset: rest Prior Episodes/Possible Cause: occasional episodes Associated Symptoms: cough, wheezing LMP (ages 10-50): post menopausal : No Patient currently breastfeeds: No HPI: 72-year-old female past medical history of hypertension diabetes and asthma brought in by ambulance for evaluation of confusion, fever and shortness of breath for the past day. reports that on Friday patient began feeling tired and weak. Earlier today patient became very lethargic was complaining of shortness of breath and per was very confused. Patient was not responding to commands or following instructions. Currently patient is reporting she feels very tired and very weak planning of body aches and fever. She also reports shortness of breath. Patient is unable to give a good history due to mental status. Denies having any medications for any symptoms. She received about 500 mL of normal saline in route by ambulance. (JESUS BHATTI PA-C) Vital Signs & Intake/Output Vital Signs & Intake/Output Vital Signs Date Time Temp Pulse Resp B/P B/P Pulse O2 O2 Flow FiO2 Mean Ox Delivery Rate 05/14 0108 100.4 102 20 104/51 97 Nasal 2.0L Cannula 05/14 0101 100.4 05/14 0051 101.0 05/14 0023 97 Room Air 05/13 2350 102.0 05/13 2346 102.7 123 22 141/63 94 Nasal 1.0L Cannula ED Intake and Output 05/14 0000 05/13 1200 Intake Total Output Total Balance Patient 145 lb Weight Weight Estimated Measurement Method Past History Travel History Traveled to [place] past 21 day No Medical History Any Pertinent Medical History? see below for history Neurological: NONE EENT: NONE Cardiovascular: HTN,CHOL Respiratory: asthma Gastrointestinal: NONE Hepatic: NONE Renal: NONE Musculoskeletal: NONE Psychiatric: NONE Endocrine: DM History of MRSA: No History of VRE: No History of CDIFF: No Surgical History Surgical History: non-contributory Psychosocial History Services at Home Oxygen What is your primary language Italian Family History Family History, If Any: FATHER, ; Cause: Myocardial infarct. MOTHER, ; Cause: Dementia. Hx Contributory? Yes (JESUS BHATTI PA-C) Review of Systems Review of Systems Constitutional: Reports: see HPI, fever. EENTM: Reports: no symptoms. Respiratory: Reports: short of breath. Cardiovascular: Reports: no symptoms. GI: Reports: no symptoms. Genitourinary: Reports: no symptoms. Musculoskeletal: Reports: no symptoms. Skin: Reports: no symptoms. Neurological/Psychological: Reports: see HPI, confusion. Hematologic/Endocrine: Reports: no symptoms. Immunologic/Allergic: Reports: no symptoms. All Other Systems: Reviewed and Negative (BLACK PA-C,JESUS) Physical Exam Physical Exam General Appearance: anxious, lethargic, moderate distress, confused Head: atraumatic, normal appearance Eyes: Bilateral: normal appearance, PERRL, EOMI. Ears, Nose, Throat: normal pharynx, normal ENT inspection, hearing grossly normal Neck: normal inspection, supple Respiratory: no respiratory distress, wheezing Cardiovascular: regular rate/rhythm, normal peripheral pulses Peripheral Pulses: 2+ dorsalis pedis (R), 2+ dorsalis pedis (L) Gastrointestinal: normal bowel sounds, soft, non-tender, no organomegaly Extremities: normal inspection, normal capillary refill, normal range of motion, no edema Neurologic/Psych: no motor/sensory deficits, disoriented x 3, lethargic Skin: intact, normal color, warm/dry, diaphoresis Lymphatic: no anterior cervical kelton Core Measures ACS in differential dx? Yes Severe Sepsis Present: Yes Septic Shock Present: No (DAVY ALVAREZ,JESUS) Progress Differential Diagnosis: asthma, AMI, CHF, COPD, pulmonary embolism, pneumonia, sepsis, UTI Plan of Care: Orders Procedure Date/time Status LACTIC ACID 05/14 0245 Active Add-on Test (ER Only) 05/14 0115 Active Admit to inpatient 05/14 0109 Active BLOOD CULTURE 05/13 2356 Active CULTURE,URINE 05/13 2345 Active BLOOD CULTURE 05/13 2345 Active URINALYSIS 05/13 2345 Complete TROPONIN LEVEL 05/13 2345 Complete LACTIC ACID 05/13 2345 Complete COMPREHENSIVE METABOLIC PANEL 05/13 2345 Complete CBC WITHOUT DIFFERENTIAL 05/13 2345 Complete B-TYPE NATRIURETIC PEP (BNP) 05/13 2345 Complete EKG 05/13 2345 Active Current Medications Sig/Leslie Start time Last Medication Dose Stop Time Status Admin Sodium Chloride 1,000 ML BOLUS ONE 05/14 0130 UNVr (Normal Saline 0.9%) 05/14 0229 Laboratory Tests 05/14/17 0012: Anion Gap 16, Estimated GFR 24 L, BUN/Creatinine Ratio 22.5, Glucose 285 H, Lactic Acid 3.3 H, Calcium 9.0, Total Bilirubin 0.4, AST 38 H, ALT 28, Alkaline Phosphatase 60, Troponin I 0.03, Afu-I-Nlvzzbcmjiu Pept 181 H, Total Protein 6.8, Albumin 3.7, Globulin 3.1, Albumin/Globulin Ratio 1.2, CBC w Diff MAN DIFF ORDERED, RBC 3.20 L, MCV 81.7, MCH 26.7 L, RDW 16.3 H, MPV 9.6, Gran % 95.5 H, Lymphocytes % 3.1 L, Monocytes % 1.1 L, Eosinophils % 0.2, Basophils % 0.1, Absolute Granulocytes 10.2 H, Segmented Neutrophils 90 H, Band Neutrophils 3, Absolute Lymphocytes 0.3 L, Lymphocytes 5 L, Monocytes 2, Absolute Monocytes 0.1 L, Absolute Eosinophils 0, Absolute Basophils 0, Platelet Estimate ADEQUATE, Polychromasia 1+, Hypochromic-Microcytic 1+, Poikilocytosis 1+, Ovalocytes 1+, PUBS MCHC 32.6 L, Fld Total RBCs Counted 100 05/13/17 2355: Urine Color YEL, Urine Clarity HAZY H, Urine pH 6.0, Ur Specific [place] 1.010, Urine Protein 30 H, Urine Ketones NEG, Urine Nitrite POS H, Urine Bilirubin NEG, Urine Urobilinogen 0.2, Ur Leukocyte Esterase MOD H, Ur Microscopic SEDIMENT EXAMINED, Urine RBC 1-3, Urine WBC 25-50 H, Ur Epithelial Cells FEW, Urine Bacteria MANY H, Urine Mucus RARE, Urine Hemoglobin MOD H, Urine Glucose >=1000 H Microbiology 05/14 0115 URINE ROUT: Urine Culture - CAN Cancelled: DUPLICATE ORDER 05/14 0011 BLOOD: Blood Culture - RECD 05/14 0010 BLOOD: Blood Culture - RECD 05/13 2345 URINE ROUT: Urine Culture - RECD Patient seen and evaluated. Blood cultures, urinalysis, blood work, chest x-ray , EKG ordered. Patient given 1000 organisms of Tylenol IV along with 1 L normal saline IV. 116am: Labs are coming back with significantly elevated lactate and signs of infection in the urine. Additionally there is evidence of acute kidney injury. Ceftriaxone 1 g IV was ordered along with urine culture. Another liter of fluid was added. Patient will be admitted to general medical for further evaluation. Patient blood pressure has been stable. Case was discussed with Dr. Pope and he agrees with the plan. Spoke with hospitalist Dr. Zheng who will be admitting the patient. (DAVY ALVAREZ,JESUS) Diagnostic Imaging: Viewed by Me: CT Scan. Initial ED EKG: LBBB, sinus tach Prior EKG: unchanged Comments: EXAMINATION: XR PORTABLE CHEST CLINICAL INFORMATION: Fever, altered mental status COMPARISON: 03/24/2017 TECHNIQUE: Portable frontal view of the chest was obtained. FINDINGS: Lung volumes are symmetric. No focal consolidation is seen. No evidence of pneumothorax, pleural effusion, or pulmonary edema. The cardiomediastinal contour is unremarkable. No acute osseous findings are seen. IMPRESSION: No focal consolidation. (JESUS BHATTI PA-C) Departure Departure Disposition: STILL A PATIENT Condition: Stable Clinical Impression Primary Impression: Sepsis secondary to UTI Secondary Impressions: GENI (acute kidney injury) Referrals: CRISTOFER GRAY,ANDREW Min (PCP/Family) Departure Forms: Customer Survey General Discharge Information Admission Note Spoke With: TRAE ZHENG MD Documentation of Exam: Patient requires admission for further evaluation of possible urosepsis and acute kidney injury. She will require IV antibiotics, IV fluids, serial labs, medication adjustment, physical therapy consult. (JESUS BHATTI PA-C) Resident Co-Sign Statement Statement: ED Attending supervision documentation- [X] I saw and evaluated the patient. I have also reviewed all the pertinent lab results and diagnostic results. I agree with the findings and the plan of care as documented in the Resident's documentation. [X] I have reviewed the ED Record and agree with the Resident's documentation. [] Additions or exceptions (if any) to the Resident's note and plan are summarized below: [] (LUIS GRAY,JUANITA Vergara) Critical Care Note Critical Care Note Critical Care Time: non-applicable (JESUS BHATTI PA-C)
--- NOTE | 2017-05-14 00:13 | NUR ---
BLOOD DRAWN AND SENT TO LAB 2ND BLOOD CULTURE AT 0011
[2017-05-14 00:24] LABS: ABSOLUTE BASOPHIL COUNT 0 /CUMM (0.0-0.2); ABSOLUTE EOSINOPHIL COUNT 0 /CUMM (0.0-0.7); ABSOLUTE GRANULOCYTE CT 10.2 /CUMM (1.4-6.5); ABSOLUTE LYMPH COUNT 0.3 /CUMM (1.2-3.4); ABSOLUTE MONOCYTE COUNT 0.1 /CUMM (0.10-0.60); BASOPHIL % 0.1 % (0.0-2.0); EOSINOPHIL % 0.2 % (0-5); GRANULOCYTE % 95.5 % (42.2-75.2); HEMATOCRIT 26.2 % (37-47); MEAN CORPUSCULAR HGB 26.7 PG (27.0-31.0); MEAN CORPUSCULAR HGB CONC 32.6 G/DL (33.0-37.0); MEAN CORPUSCULAR VOLUME 81.7 FL (81.0-99.0); MEAN PLATELET VOLUME 9.6 FL (7.4-10.4); PLATELET COUNT 249 /CUMM (130-400); RBC DISTRIBUTION WIDTH 16.3 % (11.5-14.5); WHITE BLOOD CELL COUNT 10.6 /CUMM (4.8-10.8)
--- NOTE | 2017-05-14 00:43 | NUR ---
CRITICAL TEST RESULTS [id number] NATHAN TIDWELL 72 F TESTS AND RESULTS: LACTIC 3.3 Results received and read back by: MARY FRITZ Results received date and time: 05/14/17 0043 The following provider was notified of the results, and read the results back: DR SMITH Notified date and time: 05/14/17 at 0045
--- NOTE | 2017-05-14 00:44 | RADIOLOGY REPORT ---
EXAMINATION: XR PORTABLE CHEST CLINICAL INFORMATION: Fever, altered mental status COMPARISON: 03/24/2017 TECHNIQUE: Portable frontal view of the chest was obtained. FINDINGS: Lung volumes are symmetric. No focal consolidation is seen. No evidence of pneumothorax, pleural effusion, or pulmonary edema. The cardiomediastinal contour is unremarkable. No acute osseous findings are seen. IMPRESSION: No focal consolidation.
--- NOTE | 2017-05-14 01:09 | NUR ---
PER PT STARTING TO FEEL ALITTLE BETTER. RESPONDS TO QUESTIONS APPROPRIATELY.
--- NOTE | 2017-05-14 02:04 | History & Physical ---
JINNY AMADOR 05/14/17 0204: General Information and HPI MD Statement: I have seen and personally examined NATHAN ESCALANTE and documented this H&P. The patient is a 72 year old F who presented with a patient stated chief complaint of []. Source of Information: patient, family, old records Exam Limitations: clinical condition History of Present Illness: 72 year old woman with PMH significant for Asthma, CHF, DM, history of kidney stones, cirrhosis, anemia was brought by for evaluation of weakness, shortness of breath. Most of the history was obtained from the . Since friday she has been having generalized weakness and worsening shortness of breath (walking 100-200 feet). Last night he was woken up by her as she was having difficulty breathing and he noticed she had facial swelling. She also had one episode of vomiting prior to coming to the ED. Complained of LLQ pain which radiated to her groin which was intermittent and not present on interview. Since the past few weeks she has been having urinary frequency and dysuria associated with chills. Denies stridor,chest pain,documented fever at home, rash, hematuria, constipation, diarrhea. Per she has been having poor PO intake and has been losing weight recently Allergies/Medications Allergies: Coded Allergies: NO KNOWN ALLERGIES (12/29/16) Home Med list Albuterol Sulfate (Proair Hfa) 90 MCG HFA.AER.AD 2 PUF INH Q4-6 PRN PRN ASTHMA (Reported) Aspirin (Ecotrin*) 81 MG TABLET.DR 1 TAB PO DAILY HEART (Reported) Atorvastatin Calcium 20 MG TABLET 1 TAB PO DAILY CHOL (Reported) Buspirone HCl 10 MG TABLET 10 MG PO DAILY ANXIETY (Reported) Dextroamphetamine/Amphetamine (Dextroamp-Amphetamine 5 MG Tab) 5 MG TABLET 1 TAB PO DAILY ADHD (Reported) Fenofibrate Nanocrystallized (Fenofibrate) 145 MG TABLET 1 TAB PO DAILY OSTEO (Reported) Furosemide (Lasix) 20 MG TABLET 1 TAB PO DAILY CHF Glimepiride 2 MG TABLET 1 TAB PO DAILY DM (Reported) Hydrochlorothiazide 25 MG TABLET 1 TAB PO DAILY HTN (Reported) Lansoprazole 30 MG CAPSULE.DR 1 CAP PO DAILY GERD (Reported) Losartan (Cozaar) 100 MG TABLET 100 MG PO DAILY HTN (Reported) Metformin HCl 500 MG TABLET 1,000 MG PO BID DM (Reported) Metoprolol Succinate 25 MG TAB 1 TAB PO DAILY HTN (Reported) Sitagliptin Phosphate (Januvia) 100 MG TABLET 1 TAB PO DAILY DM (Reported) Compliance With Home Meds: GOOD Past History Travel History Traveled to [place] past 21 day No Medical History Neurological: NONE EENT: NONE Cardiovascular: HTN,CHOL Respiratory: asthma Gastrointestinal: NONE Hepatic: NONE Renal: NONE Musculoskeletal: NONE Psychiatric: NONE Endocrine: DM History of MRSA: No History of VRE: No History of CDIFF: No Surgical History Surgical History: non-contributory Past Family/Social History Family History Relations & Conditions if any FATHER, ; Cause: Myocardial infarct. MOTHER, ; Cause: Dementia. Psychosocial History Where do you live? Home Who Do You Live With? spouse Services at Home: Oxygen Primary Language: Finnish Functional Ability ADLs Independent: dressing, eating, toileting, bathing. IADLs Independent: shopping, housework, finances, food prep, telephone, transportation , medication admin. Review of Systems Review of Systems Constitutional: Reports: chills, fever, weakness. Denies: diaphoresis, malaise, unexplained weight loss. Cardiovascular: Denies: chest pain, edema, orthopena, palpitations, peripheral edema, syncope. Respiratory: Denies: cough, hemoptysis, orthopnea, short of breath, sputum production, stridor, wheezing. Exam & Diagnostic Data Last 24 Hrs of Vital Signs/I&O Vital Signs Date Time Temp Pulse Resp B/P B/P Pulse O2 O2 Flow FiO2 Mean Ox Delivery Rate 05/14 0639 98.4 88 18 103/59 98 Nasal 2.0L Cannula 05/14 0617 98.4 88 18 103/59 98 Nasal 2.0L Cannula 05/14 0553 98.9 87 18 99/55 100 Nasal 2.0L Cannula 05/14 0333 Nasal 2.0L Cannula 05/14 0303 98.8 100 18 113/56 97 Nasal 2.0L Cannula 05/14 0209 99.8 104 20 118/68 95 Nasal 2.0L Cannula 05/14 0108 100.4 102 20 104/51 97 Nasal 2.0L Cannula 05/14 0101 100.4 05/14 0051 101.0 05/14 0023 97 Room Air 05/13 2350 102.0 05/13 2346 102.7 123 22 141/63 94 Nasal 1.0L Cannula Intake & Output 05/14 1600 05/14 0800 05/14 0000 Intake Total 3200 Output Total 1200 Balance 2000 Intake, IV 3200 Number 2 Bowel Movements Output, Urine 1200 Patient 145 lb 145 lb Weight Weight Reported by Patient Estimated Measurement Method Physical Exam General Appearance Alert, Oriented X3, Cooperative HEENT Atraumatic, PERRLA, EOMI Neck Supple, No JVD, No thryomegaly Lymphatic Cervical nl Cardiovascular Regular Rate, Normal S1, Normal S2 Lungs Clear to Auscultation, Normal Air Movement Abdomen Normal Bowel Sounds, Soft, No Tenderness, no CVA Diagnostic Data EKG Results NSR, tachycardic HR 120, Qtc 498, New LBBB CXR Results FINDINGS: Lung volumes are symmetric. No focal consolidation is seen. No evidence of pneumothorax, pleural effusion, or pulmonary edema. The cardiomediastinal contour is unremarkable. No acute osseous findings are seen. IMPRESSION: No focal consolidation. Assessment/Plan Assessment: 72 year old woman with PMH significant for Asthma, CHF, DM, history of kidney stones, cirrhosis, anemia was brought by for evaluation of weakness, shortness of breath. As Ranked By This Provider Problem List: 1. Sepsis secondary to UTI Assessment/Plan meets sepis criteria hypotensive in ED, BP responded to IVF, continue to monitor closely Continue with IVF and IV ceftriaxone trend lactate f/up blood and urine cultures 2. CHF (congestive heart failure) Assessment/Plan cardiac work up done as outpatient was negative and her hospice coordinator seem to feel her symptomalogy was secondary to her anemia EKG showed New LBBB which could be rate related, trend EKG and Trop obtain cardio consult in am 3. Cirrhosis Assessment/Plan f/up ammonia, INR,hepatitis panel unclear etiology 4. Anemia Assessment/Plan Extensive workup upper and lower endoscopy and pillcam was negative 5. GENI (acute kidney injury) Assessment/Plan abdominal US to assess for possible ascitis ( no fluid thrill on exam) and urinary obstruction Hold Lasix, glimepiride, HCTZ, losartan, metformin, sitagliptin 6. Diabetes Assessment/Plan monitor fingersticks ISS 7. DVT prophylaxis Assessment/Plan heparin 8. Full code status Core Measures/Miscellaneous Acute Coronary Syndrome ACS Diagnosis: No Cerebrovascular Accident CVA/TIA Diagnosis: No Congestive Heart Failure CHF Diagnosis: No VTE (View Protocol) VTE Risk Factors: Age > 40 [facility] prophylaxis d/t: No contraindications No VTE Pharm Prophylaxis d/t: No contraindications VTE Diagnosis: No VTE Type: NONE VTE Confirmed by (Test): NONE Sepsis (View Protocol) Severe Sepsis Present: Yes Septic Shock Septic Shock Present: No Miscellaneous Documentation Attending Case Discussed With: JOEL BUSH M.D Primary Care Physician: ANDREW CLEVELAND MD Patient sees these Specialists hospice coordinator Level of Patient Care: Telemetry REN CONTRERAS 05/14/17 0428: Resident Review Statement Resident Statement: examined this patient, discussed with finance accounting internship, agreed with finance accounting internship, reviewed images, amended to note Other Findings: Ms. Escalante is a 72-year-old woman with past medical history significant for diabetes, hypertension, hyperlipidemia, asthma, liver cirrhosis (nonalcoholic), microcytic anemia presented to [facility] ED for worsening shortness of breath, shaky chills, burning during urination and increased frequency, found to have MAXIMUM TEMPERATURE of 102.7, segmented neutrophils and 3 bands, acute on chronic CKD, no CVA tenderness being admitted for a urinary tract infection. Also, found to have new onset left axis deviation, deep S waves in anterior leads and wide QRS, left bundle branch block. Recently, saw Dr. Nicole in [place], cardiology, reportedly negative stress test etc. And the possibility of congestive heart failure was ruled out, with ascertainment of anemia as a cause of exertional dyspnea. Recent workup for anemia with upper endoscopy, colonoscopy and capsule endoscopy unrevealing of any bleeding sources. 1. Urinary tract infection: Follow results of urine culture. IV ceftriaxone. Fluid resuscitation with normal saline. Repeat lactate. Worsening kidney function, rule out obstructive uropathy with abdominal ultrasound, focus kidney. Hold nephrotoxic agents, hold loop diuretic, arb etc. 2. Sinus tachycardia and new onset left bundle branch block: Low risk for PE per Wells criteria. Check d-dimer to rule out possibility of PE. Tachycardia likely response to infection and fluid depletion. Check TSH. Treat underlying infection and continue fluid resuscitation. Rule out ACS with serial troponins and EKG. Please obtain records from Dr. Nicole in [place], to compare current tracing with previous. Please obtain cardiology evaluation. 3. Change in mentation; history of cirrhosis: Likely secondary to ongoing infection. Check ammonia levels. Check INR and abdominal ultrasound for presence of ascites, to calculate child bush and meld score. Unknown etiology of cirrhosis, check hepatitis panel. Presence of diabetes and cirrhosis, may point towards hemochromatosis but low serum iron, transferrin and ferritin essentially go against that. Other unlikely causes, including autoimmune, alpha -1 antitrypsin deficiency, ? primary billiary cirrhosis. Her pain records. 4. Exertional dyspnea: Outpatient follow-up with pulmonary for baseline PFTs and further recommendations. Obtain results of stress echocardiogram. 5. Diabetes: Accu-Cheks 3 times a day before meals at bedtime. NovoLog sliding scale. Full code. Heparin for DVT prophylaxis. Diabetic diet. ALLYTRAE MENDIETA 05/14/17 0643: Attending MD Review Statement Attending Statement Attending MD Statement: examined this patient, discuss w/resident/PA/EMERGENCY DISPATCHER, agreed w/resident/PA/EMERGENCY DISPATCHER, discussed with family, reviewed EMR data (avail), reviewed images, amended to note Attending Assessment/Plan: CC: Lethargy PMH: DM, HTN, HLD, asthma, GERD, CK D, anemia, cirrhosis (unclear etiology) History is obtain partly from patient and her . states that patient had been getting progressively weak and lethargic, had mild shortness of breath and was very regressed at home, progressively worsening over last 3 days. She was complaining of aches and pains all over. When asked to patient she says that she had urinary frequency, burning, unable to urinate even though she wants to. She had one episode of vomiting and she endorses some chills and feeling hot. Patient was admitted to [facility] in month of December with suspected heart failure, patient followed up with her hospice coordinator with cardiac workup outpatient and was suggested that she does not have heart failure and her symptoms are in fair secondary to her chronic anemia. Even with extensive workup the cause for her anemia and cirrhosis has not been found. Vitals: Tmax 102.7, HR 123, RR 22, blood pressure 141 / 63 upon presentation but decreased to 104/51, saturating well on room air. On examination: A O 3, cooperative, moderate distress, restless, neck supple, JVD normal, no lymphadenopathy, mucosa dry, facial plethora, no focal neurological deficit, no dependent edema, no obvious skin rashes or inflammation CVS: S1-S2, RRR. RS: Clear to auscultate bilaterally. Abdomen: Soft, NT, ND, bowel sounds present mild suprapubic tenderness, no CVA tenderness. Peripheral pulses and perfusion normal. Labs: WBC 10.6 with neutrophils 96% and bands 3, hemoglobin 8.5, bicarbonate 18, lactate 3.3, anion gap 16, creatinine increased to 2.0 from 1.5, glucose 285, LFT unremarkable, troponin 0.03, proBNP 181, UA positive for nitrites and leukocyte esterase. Chest x-ray unremarkable. EKG: ? New onset LBBB A and P 72-year-old female with multiple comorbidities including diabetes, HTN, HLD, CKD , recently diagnosed cirrhosis and chronic anemia presented in ER for lethargy, weakness, generalized achiness. Patient endorses urinary frequency, burning and pain while urination. On examination there is no obvious CVA tenderness but mild suprapubic tenderness is present. She is found to have febrile, tachycardic increased leukocytosis with neutrophilia and lactic acidosis and UA positive for UTI. Blood pressure in low normal range with tachycardia. EKG showed left bundle branch block probably related to her tachycardia, but she would benefit from telemetry admission given her multiple comorbidities. - Sepsis secondary to UTI - New LBBB - Metabolic acidosis with anion gap secondary to lactic acidosis - Acute kidney injury and chronic kidney disease - History of DM, HTN, HLD, anemia, cirrhosis - Admit to telemetry - Continuous telemetry monitoring - Aggressive IV fluids - Trend lactate - Serial EKG and troponin - Blood cultures, urine cultures - IV ceftriaxone - Hold Lasix, glimepiride, HCTZ, losartan, metformin, sitagliptin - Start metoprolol at lower dose continue sliding scale insulin for diabetes continue aspirin and statin - DVT prophylaxis with heparin - Consult cardiology in a.m.
--- NOTE | 2017-05-14 02:36 | NUR ---
BLOOD DRAWN AND SENT TO [facility]
--- NOTE | 2017-05-14 03:07 | NUR ---
PATIENT REMOVED FROM BEDPAN, APPROX 200ML YELLOW URINE EMPTIED. NS COMPLETE. PATIENT NOTED W/ EXP WHEEZING WHILE LAYING FLAT TO USE BEDPAN, PATIENT REPORTS "I HAVE ASTHMA, IT MUST JUST BE ACTING UP." PATIENT REPORS USES A PROAIR PRN AT HOME. PATIENT REPOSITIONED TO SITTING UPRIGHT, WHEEZING STOPPED, PATIENT REPORTS RELIEF. HOUSE STAFF PAGED TO INFORM.
--- NOTE | 2017-05-14 03:43 | NUR ---
PATIENT BEING SWITCHED FROM GM TO TELE ADMIT PER HOUSE STAFF D/T RECENT BUNDLE BRANCH BLOCK VS NEW ONSET. PATIENT SLEEPING W/ REGULAR RESPIRATIONS NOTED. SPOUSE REMAINS W/ PATIENT. IPOC INITIATED AND UTD AT THIS TIME.
--- NOTE | 2017-05-14 04:34 | NUR ---
CRITICAL TEST RESULTS [id number] NATHAN TIDWELL 72 F TESTS AND RESULTS: MAGNESIUM 0.9 Results received and read back by: SANIYA LAWSON Results received date and time: 05/14/17 0434 The following provider was notified of the results, and read the results back: HOUSE STAFF Notified date and time: 05/14/17 at 0434
--- NOTE | 2017-05-14 05:52 | NUR ---
MAG SULFATE 1G INFUSING AT 50ML/HR PER EMAR (1 OF 2 TOTAL). TOLERATING WELL. VSS.
--- NOTE | 2017-05-14 06:23 | NUR ---
PATIENT MEDICATED W/ HEPARIN SHOT AND PRILOSEC PER EMAR. TOLERATED WELL. PATIENT PLACED ON BEDPAN AT THIS TIME.
[2017-05-14 06:25] LABS: ABSOLUTE BASOPHIL COUNT 0 /CUMM (0.0-0.2); ABSOLUTE EOSINOPHIL COUNT 0 /CUMM (0.0-0.7); ABSOLUTE GRANULOCYTE CT 10.4 /CUMM (1.4-6.5); ABSOLUTE LYMPH COUNT 0.8 /CUMM (1.2-3.4); ABSOLUTE MONOCYTE COUNT 0.5 /CUMM (0.10-0.60); BASOPHIL % 0 % (0.0-2.0); EOSINOPHIL % 0 % (0-5); GRANULOCYTE % 88.9 % (42.2-75.2); MEAN CORPUSCULAR HGB 26.7 PG (27.0-31.0); MEAN CORPUSCULAR HGB CONC 32.4 G/DL (33.0-37.0); MEAN CORPUSCULAR VOLUME 82.2 FL (81.0-99.0); MEAN PLATELET VOLUME 8.9 FL (7.4-10.4); PLATELET COUNT 224 /CUMM (130-400); RBC DISTRIBUTION WIDTH 16.1 % (11.5-14.5); RED BLOOD CELL CT 2.91 /CUMM (4.20-5.40); WHITE BLOOD CELL COUNT 11.7 /CUMM (4.8-10.8)
[2017-05-14 06:29] LABS: PT 13.2 SEC (9.4-12.5)
[2017-05-14 06:39] VITALS: BP 103/59
--- NOTE | 2017-05-14 06:40 | NUR ---
IPOC CONTINUED AND UTD.
--- NOTE | 2017-05-14 06:44 | Admission Certification ---
Admission Certification Certification Statement - As attending physician, I certify that at the time of - admission, based on clinical presentation, severity of - symptoms, need for further diagnostic testing and - therapeutic interventions, and risk of adverse outcomes - without in-hospital treatment, in my clinical assessment, - this patient requires an acute hospital stay for a minimum - of two nights or longer. I have also considered psychsocial - factors such as support system, advanced age, financial - issues, cognitive issues, and failed out-patient treatments, - past re-admission history, safety of patient, and lack of - compliance as applicable. Specific rationale supporting this admission is: Sepsis secondary to UTI, new onset LBBB
--- NOTE | 2017-05-14 07:14 | NUR ---
PATIENT INCONTINENT OF LARGE AMOUNT DIARRHEA, BROWN. PATIENT CHANGED, ALL LINENS AND PATIENT GOWN CHANGED. PATIENT REPOSITIONED, SKIN INTACT, NO REDNESS NOTED TO PATIENT BACKSIDE/ BUTTOCKS.
--- NOTE | 2017-05-14 07:44 | NUR ---
2ND MAG SULFATE BAG INFUSING AT THIS TIME (SEE MAR)
--- NOTE | 2017-05-14 07:48 | NUR ---
TXT PAGED RESIDENT RJ #[id number] IF PT CAN COME OFF TELE FOR THE [facility]/S. IS HERE NOW TO [facility] PERKINS.
--- NOTE | 2017-05-14 08:24 | NUR ---
MEDICATED WITH 3UNITS INSULIN (SEE MAR) FOR B/S OF 292
--- NOTE | 2017-05-14 08:56 | NUR ---
PT TO [facility]/S. OFF MONITOR OKAY PER RESIDENT.
--- NOTE | 2017-05-14 09:09 | NUR ---
PT BACK FROM [facility].
--- NOTE | 2017-05-14 09:32 | ULTRASOUND REPORT ---
EXAMINATION: US ABDOMEN COMPLETE CLINICAL INFORMATION: 72-year-old female with history of cirrhosis presents with acute renal injury and urinary symptoms. Evaluate for ascites.. COMPARISON: 02/15/2016 TECHNIQUE: Real-time imaging of the abdominal viscera. FINDINGS: PANCREAS: The visualized portions of the pancreas are normal. ABDOMINAL AORTA: The proximal segment is normal in caliber. INFERIOR VENA CAVA: Visualized portions are normal. LIVER: Liver has diffusely heterogeneous, coarse, hyperechoic echotexture without evidence of focal lesion or intrahepatic bile duct dilatation. There is mild surface nodularity of the hepatic contour, consistent with the history of cirrhosis. GALLBLADDER: Normal. The gallbladder is physiologically distended without evidence of stones, sludge, polyps, wall thickening or pericholecystic fluid. COMMON BILE DUCT: Normal in caliber measuring 0.5 cm in diameter. RIGHT KIDNEY: 10.9 cm in length. The kidney has normal cortical thickness and echotexture. No focal parenchymal lesion, hydronephrosis or nephrolithiasis. LEFT KIDNEY: 10.8 cm in length. The kidney has normal cortical thickness and echotexture. No focal parenchymal lesion, hydronephrosis or nephrolithiasis. SPLEEN: Normal. The spleen measures 9.8 cm in maximum dimension. FREE FLUID: None. IMPRESSION: 1. No evidence of ascites. 2. Gallbladder is normal. 3. Liver has coarse, hyperechoic echotexture from cirrhosis and/or steatosis. No sonographic evidence of hepatoma.
--- NOTE | 2017-05-14 09:51 | NUR ---
MEDICATED WITH MEDS (SEE MAR) ADMINISTERED PRN VICODIN FOR HEADACHE AND BACK DISCOMFORT (SEE MAR)
--- NOTE | 2017-05-14 10:00 | NUR ---
ADDED NUTRIONAL CONSULT IN SINCE MONICA IS <15.
--- NOTE | 2017-05-14 10:13 | NUR ---
ALPS IN PLACE.
--- NOTE | 2017-05-14 10:44 | NUR ---
PT REASSESSED, TEMP NOTED TO BE 100.7, FEELS WARM TO THE TOUCH. PT ALSO NOTED WITH AUDIBLE WHEEZING, STATES SHE FEELS A LITTLE SOB. PT ASKED FOR HER INHALER, ADMINISTERED ORDERED PRN (SEE MAR) DR COPELAND PAGED AND AWARE OF ALL THE SAME. ASKED FOR RESP TO COME AND EVALUATE PT. RESP CALLED AND WILL COME AND SEE PT WELL. SAT 93-94% ON 2L O2 VIA NC. WILL CONTINUE TO MONITOR.
--- NOTE | 2017-05-14 10:45 | NUR ---
DR REDMAN (CARDIOLOGY) AT BEDSIDE.
--- NOTE | 2017-05-14 10:53 | Cons- Cardiology ---
General Information and HPI Consulting Request Date of Consult: 05/14/17 Requested By: JOEL BUSH M.D Reason for Consult: LBBB, ?CHF Primary dairy technologist: Dr. Nicole Source of Information: patient, family, old records History of Present Illness: This is a 72-year-old female with a past medical history of asthma, diabetes mellitus, possible mild congestive heart failure (on daily low-dose Lasix), anemia, hypertension, hyperlipidemia, and non-alcoholic cirrhosis who presents to the hospital with a chief complaint of 3 days of worsening weakness, lethargy , myalgia, and dysuria. She also has noted intermittent dyspnea without associated chest discomfort or palpitations. She does have asthma but says this is well-controlled and rarely needs her inhaler. She does not smoke. She has had intermittent dyspnea over recent months with hospitalization in December but notes that her dairy technologist did outpatient cardiac testing and found no obvious cardiac etiology of her dyspnea. She has been worked up for anemia and cirrhosis of unclear etiology. She has had fever. She denies syncope, slurring of speech, visual changes, orthopnea, hematemesis, or hematochezia. On my interview with the patient in the emergency room she was tachypneic but answering questions properly. Allergies/Medications Allergies: Coded Allergies: NO KNOWN ALLERGIES (12/29/16) Home Med List: Albuterol Sulfate (Proair Hfa) 90 MCG HFA.AER.AD 2 PUF INH Q4-6 PRN PRN ASTHMA (Reported) Aspirin (Ecotrin*) 81 MG TABLET.DR 1 TAB PO DAILY HEART (Reported) Atorvastatin Calcium 20 MG TABLET 1 TAB PO DAILY CHOL (Reported) Buspirone HCl 10 MG TABLET 10 MG PO DAILY ANXIETY (Reported) Dextroamphetamine/Amphetamine (Dextroamp-Amphetamine 5 MG Tab) 5 MG TABLET 1 TAB PO DAILY ADHD (Reported) Fenofibrate Nanocrystallized (Fenofibrate) 145 MG TABLET 1 TAB PO DAILY OSTEO (Reported) Furosemide (Lasix) 20 MG TABLET 1 TAB PO DAILY CHF Glimepiride 2 MG TABLET 1 TAB PO DAILY DM (Reported) Hydrochlorothiazide 25 MG TABLET 1 TAB PO DAILY HTN (Reported) Lansoprazole 30 MG CAPSULE. 1 CAP PO DAILY GERD (Reported) Losartan (Cozaar) 100 MG TABLET 100 MG PO DAILY HTN (Reported) Metformin HCl 500 MG TABLET 1,000 MG PO BID DM (Reported) Metoprolol Succinate 25 MG TAB 1 TAB PO DAILY HTN (Reported) Sitagliptin Phosphate (Januvia) 100 MG TABLET 1 TAB PO DAILY DM (Reported) Current Medications: Current Medications Sig/Leslie Start time Last Medication Dose Route Stop Time Status Admin Acetaminophen 1,000 MG Q6P PRN 05/14 1100 UNVr N/A 1 UNIT IV Acetaminophen 0 .STK-MED ONE 05/14 0006 DC IV Acetaminophen 1,000 MG ONCE ONE 05/13 2345 DC 05/13 N/A 1 UNIT IV 05/13 2359 2350 Acetaminophen/ 0 .STK-MED ONE 05/14 0945 DC Hydrocodone Bitart PO Acetaminophen/ 1 TAB Q6P PRN 05/14 0415 AC 05/14 Hydrocodone Bitart PO 0950 Albuterol Sulfate 2 PUF Q4-6 PRN PRN 05/14 0415 AC INH Aspirin Buffered 81 MG DAILY 05/14 1000 AC 05/14 PO 0950 Atorvastatin Calcium 20 MG 1700 05/14 1700 AC PO Buspirone HCl 10 MG DAILY 05/14 1000 AC 05/14 PO 0950 Ceftriaxone Sodium 1,000 MG DAILY 05/15 0100 AC Sodium Chloride 100 ML IV Ceftriaxone Sodium 0 .STK-MED ONE 05/14 0103 DC .ROUTE Ceftriaxone Sodium 1,000 MG ONCE ONE 05/14 0100 DC 05/14 IV 05/14 0101 0101 Fenofibrate 145 MG DAILY 05/14 1000 AC 05/14 PO 0950 Heparin Sodium 5,000 UNIT Q8 05/14 0600 AC 05/14 (Porcine) SC 0622 Heparin Sodium 0 .STK-MED ONE 05/14 0534 DC (Porcine) .ROUTE Insulin Aspart 0 TIDAC 05/14 0800 AC 05/14 SC 0823 Magnesium Sulfate 1 GM Q2H 05/14 0445 DC 05/14 Dextrose/Water 100 ML IV 05/14 0844 0737 Metoprolol Tartrate 12.5 MG DAILY 05/14 1000 AC 05/14 PO 0950 Morphine Sulfate 2 MG Q4P PRN 05/14 0415 AC IV Non-Formulary 0 SEE ADMIN CRITERIA 05/14 1000 UNVr Medication ANY Omeprazole 40 MG DAILY AC 05/14 0700 AC 05/14 PO 0622 Omeprazole 0 .STK-MED ONE 05/14 0621 DC PO Prochlorperazine 10 MG Q6P PRN 05/14 0700 AC IV Sodium Chloride 1,000 ML SEE RATE 05/14 0400 AC IV Sodium Chloride 1,000 ML BOLUS ONE 05/14 0245 DC 05/14 IV 05/14 0344 0232 Sodium Chloride 1,000 ML BOLUS ONE 05/14 0130 DC 05/14 IV 05/14 0229 0230 Sodium Chloride 1,000 ML BOLUS ONE 05/13 2345 DC 05/13 IV 05/14 0044 2350 Review of Systems Review of Systems: Review of systems as per HPI. The remainder of a 10 point review of systems was reviewed and was otherwise negative. Past History Travel History Traveled to [place] past 21 day No Medical History Neurological: NONE EENT: NONE Cardiovascular: HTN,CHOL Respiratory: asthma Gastrointestinal: NONE Hepatic: NONE Renal: NONE Musculoskeletal: NONE Psychiatric: NONE Endocrine: DM Blood Disorders: NONE Cancer(s): NONE MARKETING ANALYTICS SPECIALIST/Reproductive: NONE Surgical History Surgical History: non-contributory Family History Relations & Conditions If Any: FATHER, ; Cause: Myocardial infarct. MOTHER, ; Cause: Dementia. Psychosocial History Where Do You Live? Home Who Do You Live With? spouse Services at Home: Oxygen Primary Language: Macedonian Smoking Status: Never Smoked Functional Ability ADLs Independent: dressing, eating, toileting, bathing. IADLs Independent: shopping, housework, finances, food prep, telephone, transportation , medication admin. Exam & Diagnostic Data Vital Signs and I&O Vital Signs Date Time Temp Pulse Resp B/P B/P Pulse O2 O2 Flow FiO2 Mean Ox Delivery Rate 05/14 1041 100.7 95 20 146/74 94 05/14 0950 88 103/59 05/14 0639 98.4 88 18 103/59 98 Nasal 2.0L Cannula 05/14 0617 98.4 88 18 103/59 98 Nasal 2.0L Cannula 05/14 0553 98.9 87 18 99/55 100 Nasal 2.0L Cannula 05/14 0333 Nasal 2.0L Cannula 05/14 0303 98.8 100 18 113/56 97 Nasal 2.0L Cannula 05/14 0209 99.8 104 20 118/68 95 Nasal 2.0L Cannula 05/14 0108 100.4 102 20 104/51 97 Nasal 2.0L Cannula 05/14 0101 100.4 05/14 0051 101.0 05/14 0023 97 Room Air 05/13 2350 102.0 05/13 2346 102.7 123 22 141/63 94 Nasal 1.0L Cannula Intake & Output 05/14 0800 05/14 0000 05/13 1600 05/13 0800 05/13 0000 Intake Total 3200 Output Total 1200 Balance 2000 Intake, IV 3200 Number 2 Bowel Movements Output, Urine 1200 Patient 145 lb 145 lb Weight Weight Reported by Patient Estimated Measurement Method Physical Exam: General: Tachypneic. Answering questions appropriately. Eyes: No obvious scleral icterus. HEENT: No jugular venous distention or abnormal jugular venous pulsations. Cardiovascular: Normal intensity S1/S2. Regular. Respiratory: Bilateral wheezes noted without rales or rhonchi, no accessory muscle use Abdomen: Minimal tenderness without guarding Musculoskeletal: No clubbing or cyanosis noted, no edema Skin: Warm Neurologic: No gross focal deficits noted. Labs/Gutierrez Results: Laboratory Tests 05/14 05/14 05/14 05/14 K 0615 0615 0235 Chemistry Sodium (137 - 145 mmol/L) 144 Potassium (3.5 - 5.1 mmol/L) 4.0 Chloride (98 - 107 mmol/L) 112 H Carbon Dioxide (22 - 30 mmol/L) 18 L Anion Gap (5 - 16) 13 BUN (7 - 17 mg/dL) 39 H Creatinine (0.5 - 1.0 mg/dL) 1.7 H Estimated GFR (>60 ml/min) 30 L BUN/Creatinine Ratio (7 - 25 %) 22.9 Hemoglobin A1c (4.2 - 5.8 %) 9.2 H Lactic Acid (0.7 - 2.1 mmol/L) 2.1 Ammonia (9 - 30 umol/L) 15 Troponin I (< 0.11 ng/ml) 0.10 Coagulation PT (9.4 - 12.5 SEC) 13.2 H INR (0.90 - 1.19) 1.26 H Hematology CBC w Diff NO MAN DIFF REQ WBC (4.8 - 10.8 /CUMM) 11.7 H RBC (4.20 - 5.40 /CUMM) 2.91 L Hgb (12.0 - 16.0 G/DL) 7.8 L Hct (37 - 47 %) 24.0 L MCV (81.0 - 99.0 FL) 82.2 MCH (27.0 - 31.0 PG) 26.7 L RDW (11.5 - 14.5 %) 16.1 H Plt Count (130 - 400 /CUMM) 224 MPV (7.4 - 10.4 FL) 8.9 Gran % (42.2 - 75.2 %) 88.9 H Lymphocytes % (20.5 - 51.1 %) 6.8 L Monocytes % (1.7 - 9.3 %) 4.3 Eosinophils % (0 - 5 %) 0 Basophils % (0.0 - 2.0 %) 0 L Absolute Granulocytes (1.4 - 6.5 /CUMM) 10.4 H Absolute Lymphocytes (1.2 - 3.4 /CUMM) 0.8 L Absolute Monocytes (0.10 - 0.60 /CUMM) 0.5 Absolute Eosinophils (0.0 - 0.7 /CUMM) 0 Absolute Basophils (0.0 - 0.2 /CUMM) 0 PUBS MCHC (33.0 - 37.0 G/DL) 32.4 L Serology Hepatitis A IgM Ab (NONREACTIVE) NONREACTIVE Hep Bs Antigen (NONREACTIVE) NONREACTIVE Hep B Core IgM Ab Conf (NONREACTIVE) NONREACTIVE Hepatitis C Antibody (NONREACTIVE) NONREACTIVE 05/14 05/13 0012 2355 Chemistry Sodium (137 - 145 mmol/L) 138 Potassium (3.5 - 5.1 mmol/L) 4.2 Chloride (98 - 107 mmol/L) 104 Carbon Dioxide (22 - 30 mmol/L) 18 L Anion Gap (5 - 16) 16 BUN (7 - 17 mg/dL) 45 H Creatinine (0.5 - 1.0 mg/dL) 2.0 H Estimated GFR (>60 ml/min) 24 L BUN/Creatinine Ratio (7 - 25 %) 22.5 Glucose (65 - 99 mg/dL) 285 H Lactic Acid (0.7 - 2.1 mmol/L) 3.3 H Calcium (8.4 - 10.2 mg/dL) 9.0 Magnesium (1.6 - 2.3 mg/dL) 0.9 *L Total Bilirubin (0.2 - 1.3 mg/dL) 0.4 AST (14 - 36 U/L) 38 H ALT (9 - 52 U/L) 28 Alkaline Phosphatase (<127 U/L) 60 Troponin I (< 0.11 ng/ml) 0.03 Exc-J-Dvswyeyldog Pept (<125 pg/mL) 181 H Total Protein (6.3 - 8.2 g/dL) 6.8 Albumin (3.5 - 5.0 g/dL) 3.7 Globulin (1.9 - 4.2 gm/dL) 3.1 Albumin/Globulin Ratio (1.1 - 2.2 %) 1.2 Hematology CBC w Diff MAN DIFF ORDERED WBC (4.8 - 10.8 /CUMM) 10.6 RBC (4.20 - 5.40 /CUMM) 3.20 L Hgb (12.0 - 16.0 G/DL) 8.5 L Hct (37 - 47 %) 26.2 L MCV (81.0 - 99.0 FL) 81.7 MCH (27.0 - 31.0 PG) 26.7 L RDW (11.5 - 14.5 %) 16.3 H Plt Count (130 - 400 /CUMM) 249 MPV (7.4 - 10.4 FL) 9.6 Gran % (42.2 - 75.2 %) 95.5 H Lymphocytes % (20.5 - 51.1 %) 3.1 L Monocytes % (1.7 - 9.3 %) 1.1 L Eosinophils % (0 - 5 %) 0.2 Basophils % (0.0 - 2.0 %) 0.1 Absolute Granulocytes (1.4 - 6.5 /CUMM) 10.2 H Segmented Neutrophils (42.2 - 75.2 %) 90 H Band Neutrophils (0.0 - 5.0 %) 3 Absolute Lymphocytes (1.2 - 3.4 /CUMM) 0.3 L Lymphocytes (20.5 - 51.1 %) 5 L Monocytes (1.7 - 9.3 %) 2 Absolute Monocytes (0.10 - 0.60 /CUMM) 0.1 L Absolute Eosinophils (0.0 - 0.7 /CUMM) 0 Absolute Basophils (0.0 - 0.2 /CUMM) 0 Platelet Estimate (ADEQUATE) ADEQUATE Polychromasia 1+ Hypochromic-Microcytic 1+ Poikilocytosis 1+ Ovalocytes 1+ PUBS MCHC (33.0 - 37.0 G/DL) 32.6 L Other Body Source Fld Total RBCs Counted (%) 100 Urines Urine Color (YEL,AMB,STR) YEL Urine Clarity (CLEAR) HAZY H Urine pH (5.0 - 8.0) 6.0 Ur Specific [place] (1.001 - 1.035) 1.010 Urine Protein (NEG,<30 MG/DL) 30 H Urine Ketones (NEG) NEG Urine Nitrite (NEG) POS H Urine Bilirubin (NEG) NEG Urine Urobilinogen (0.1 - 1.0 EU/dl) 0.2 Ur Leukocyte Esterase (NEG) MOD H Ur Microscopic SEDIMENT EXAMINED Urine RBC (0 - 5 /HPF) 1-3 Urine WBC (0 - 2 /HPF) 25-50 H Ur Epithelial Cells (NONE,FEW) FEW Urine Bacteria (NEG/NONE) MANY H Urine Mucus (FEW,NONE) RARE Urine Hemoglobin (NEG) MOD H Urine Glucose (N MG/DL) >=1000 H Diagnostic Data EKG Results Tracing personally reviewed and shows a sinus rhythm at 90 bpm with left bundle branch block CXR Results IMPRESSION: No focal consolidation. Other Results Abdominal ultrasound IMPRESSION: 1. No evidence of ascites. 2. Gallbladder is normal. 3. Liver has coarse, hyperechoic echotexture from cirrhosis and/or steatosis. No sonographic evidence of hepatoma. Assessment/Plan Assessment/Plan 1. Urosepsis with fever 2. Renal insufficiency 3. Anemia 4. New left bundle-branch block 5. History of possible mild congestive heart failure, not currently decompensated 6. Asthma with bronchospasm 7. History of hypertension/hyperlipidemia/diabetes 8. Tachypnea The patient was tachypneic on my examination with bilateral bronchospasm noted. This may have been triggered by her urosepsis/febrile illness. Her physical exam /CXR/ and relatively low BNP levels argue against any congestive heart failure. Would attempt to obtain outpatient records including outpatient labs and the results of recent cardiac testing. Would obtain an echocardiogram here in the hospital. Troponins are negative thus far. Continue the patient on telemetry. Antibiotics per the medical team. Recommend nebulizer treatments. Would hold the beta nabila in the setting of acute bronchospasm. Agree with gentle fluid resuscitation while monitoring volume status closely. Attempt to obtain recent outpatient ECGs, the left bundle-branch block is not consistent with acute coronary syndrome at this time. Jason Pollard MD FACC Consult Acknowledgment - Thank you for your consult request.
--- NOTE | 2017-05-14 10:54 | NUR ---
PT STARTING TO FEEL BETTER AFTER USING INHALER. SATS 94-96% ON 2L O2 AT THIS TIME. STILL SOME WHEEZING NOTED.
--- NOTE | 2017-05-14 10:59 | NUR ---
IV OFIRMEV INFUSING (SEE MAR)
--- NOTE | 2017-05-14 11:22 | NUR ---
DR BUSH AT BEDSIDE.
--- NOTE | 2017-05-14 12:13 | NUR ---
RESP ADMINISTERED BREATHING TX. MEDICATED WITH SOLUMEDROL, ZITHROMAX INFUSING (SEE MAR)
--- NOTE | 2017-05-14 12:17 | NUR ---
ZITHROMAX D/C BY RESIDENT AFTER INITIATED.
--- NOTE | 2017-05-14 12:23 | NUR ---
1UNIT INSULIN ADMINISTERED (SEE MAR) MEDICATED WITH LASIX WELL (SEE MAR)
--- NOTE | 2017-05-14 13:15 | NUR ---
PT SLEEPING AT THIS TIME. REG RESP NOTED.
--- NOTE | 2017-05-14 13:29 | NUR ---
REPEAT TROP SENT TO LAB.
--- NOTE | 2017-05-14 14:17 | NUR ---
CRITICAL TEST RESULTS [id number] NATHAN TIDWELL 72 F TESTS AND RESULTS: TROP 0.47 Results received and read back by: IBIS ARANDA Results received date and time: 05/14/17 1419 The following provider was notified of the results, and read the results back: RJ COPELAND MD Notified date and time: 05/14/17 at 1417
--- NOTE | 2017-05-14 14:58 | NUR ---
MD ARCEF AT BEDSIDE FOR JACLYN.
--- NOTE | 2017-05-14 15:30 | NUR ---
ASSUMED CARE, RESTING IN BED, DENIES PAIN OR SOB.
--- NOTE | 2017-05-14 15:40 | Event Note ---
Event Note Event Note: Patient's thrid set of troponin went up from 0.03--> 0.10--> 0.47. EKG showed no changes. On physical exam she was alert and oriented, and lying comfortably in bed. Cardiovascular exam revealed normal S1, S2, no murmurs appreciated. Respiratory exam revealed chest clear to auscultation bilaterally. Patient denies any chest pain, shortness of breath, nausea, vomiting. Spoke with Dr. Pollard who recommended trending troponins and EKG and if the next set continues to rise will start her on Heparin. I guiaced her and she was negative for heme occult blood. Of note, earlier this AM, patient had mild-moderate respiratory distress. She was started on IV steroids, and given a one time 20mg of IV Lasix. She has been doing much better since. Also obtained records frm the patient's PCP which sheowed that her base line creatinine is 1.24. Records from her geek squad agent Dr. Yovany Nicole also showed that her last echo and stress test doen in January 2017 showed normal LVF and normal nuclear stress test. EKG at that time had not shown LBBB. Patient seen and examined. This morning she was extremely anxious and complain of shortness of breath. He denied any chest pain or palpitations. She was maintaining her saturation on oxygen supplementation. On auscultation she was wheezing diffusely bilaterally. Heart sounds are regular. She had nodular venous distention. Abdominal soft and nontender. She had no peripheral edema. She has adequate capillary refill. Her skin does not appear cyanotic mottled. She started on bronchodilator therapy via nebulizer and intravenous steroid therapy was administered. Following this she reported feeling better. Rising cardiac enzymes noted. No ischemic changes noted on her EKG. Case discussed with cardiology service. Continues to be febrile in the emergency room with blood cultures growing gram- negative rods. Problems: 1. Elevated troponin; likely secondary to demand ischemia in the setting of COPD exacerbation/sepsis 2. Sepsis; Secondary to gram-negative bacteremia 3. Left bundle branch block 4. Acute kidney injury 5. [id number] diabetes mellitus. Plan: -IV antibiotic therapy with ceftriaxone. -Check lactic acid levels were sepsis protocol. -Avoid aggressive IV hydration until her ejection fraction can be properly assessed via an echocardiogram. -Continue bronchodilator therapy. Intravenous steroid therapy with Solu-Medrol IV every 8 hours. Oxygen supplementation as needed. -If patient remains febrile despite IV antibiotic therapy overnight consider CT abdomen and pelvis for further evaluation of etiology of her bacteremia. Follow -up urine cultures. -Monitor fingersticks with sliding scale coverage.
--- NOTE | 2017-05-14 17:00 | NUR ---
ASSISTED TO BATHROOM VIA WHEELCAHIR. VOIDED CLOUDY URINE.
--- NOTE | 2017-05-14 18:43 | NUR ---
REPEAT LACTIC AND TROPONIN DRAWN AND SENT TO LAB.
--- NOTE | 2017-05-14 19:28 | NUR ---
CRITICAL TEST RESULTS [id number] NATHAN TIDWELL 72 F TESTS AND RESULTS: TROPONIN Results received and read back by: MARCE HOWARD Results received date and time: 05/14/171927 The following provider was notified of the results, and read the results back: 0.36 TROPONIN. RESIDENT Notified date and time: 05/14/17 at 1928
--- NOTE | 2017-05-14 19:29 | NUR ---
PAGER [phone] BEEPED ABOUT CRITICAL RESULT
--- NOTE | 2017-05-14 20:04 | NUR ---
PT RESTING COMFORTABLY IN BED. PROVIDED WITH EXTRA BLANKET REQUESTED. PT REPORTS "I FEEL MUCH BETTER TODAY."
--- NOTE | 2017-05-14 20:20 | NUR ---
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 NSR NOTED. PT DENIES ANY CP, SOB.
--- NOTE | 2017-05-14 20:45 | NUR ---
PT GOING TO ROOM 180-2
--- NOTE | 2017-05-14 21:26 | NUR ---
REPORT GIVEN TO SANJANA SANTOS
[2017-05-14 22:21] VITALS: BP 122/64
[2017-05-15 00:16] VITALS: BP 188/60
--- NOTE | 2017-05-15 07:17 | PN- Housestaff ---
See Addendum Subjective Follow-up For: -Sepsis 2/2 GNR from UTI Complaints: no complaints Tele-Events Since Last Visit: NSR, HR: 78-88, few PVC's. Subjective: Patient seen and examiend at bedside. She is ambulating around well, and looks much better. Denies chest pain, shortness of breath, nausea, vomiting. Her Tmax was 101.7 past 24 hrs. Review of Systems Constitutional: Denies: fever, weakness. EENTM: Denies: visual changes. Cardiovascular: Denies: chest pain, palpitations, peripheral edema, syncope. Respiratory: Denies: hemoptysis, short of breath, sputum production, wheezing. Gastrointestinal: Denies: abdominal pain, constipation, diarrhea, nausea, vomiting. Genitourinary: Denies: dysuria, frequency, hematuria, pain. Musculoskeletal: Reports: no symptoms. Neurological/Psychological: Denies: headache, numbness, tingling, tremors. Objective Last 24 Hrs of Vital Signs/I&O Vital Signs Date Time Temp Pulse Resp B/P B/P Pulse O2 O2 Flow FiO2 Mean Ox Delivery Rate 05/15 0016 97.4 84 16 188/60 93 05/14 2221 97.8 89 18 122/64 92 Room Air 05/14 2051 98.6 76 18 128/64 97 Room Air 05/14 1636 86 18 138/63 96 Room Air 05/14 1454 98.4 85 18 117/56 97 05/14 1303 94 Nasal 2.0L Cannula 05/14 1257 Nasal 2.0L Cannula 05/14 1218 101.7 05/14 1213 101.7 95 24 143/63 93 Nasal 2.0L Cannula 05/14 1058 100.7 05/14 1041 100.7 95 20 146/74 94 05/14 0950 88 103/59 Intake & Output 05/15 0800 05/15 0000 05/14 1600 Intake Total 240 400 Output Total Balance 240 400 Intake, Oral 240 400 Physical Exam General Appearance: Alert, Oriented X3, Cooperative, No Acute Distress HEENT: Atraumatic, PERRLA, EOMI, dry mucous membranes Neck: Supple, No JVD, No thryomegaly, +2 Carotid Pulse wo Bruit, No LAD Cardiovascular: Regular Rate, Normal S1, Normal S2, No Murmurs Lungs: Clear to Auscultation, Normal Air Movement Abdomen: Normal Bowel Sounds, Soft, No Tenderness, positive CVA tenderness on right side. Neurological: Normal Gait, Normal Speech, Strength at 5/5 X4 Ext, Normal Tone, Sensation Intact, Cranial Nerves 3-12 NL, Reflexes 2+ Extremities: No Clubbing, No Cyanosis, No Edema, Normal Pulses, No Tenderness/ Swelling Current Medications: Current Medications Sig/Leslie Start time Last Medication Dose Route Stop Time Status Admin Acetaminophen 0 .STK-MED ONE 05/14 1101 DC IV Acetaminophen 1,000 MG Q6P PRN 05/14 1100 AC 05/14 N/A 1 UNIT IV 1058 Acetaminophen/ 0 .STK-MED ONE 05/14 0945 DC Hydrocodone Bitart PO Acetaminophen/ 1 TAB Q6P PRN 05/14 0415 AC 05/14 Hydrocodone Bitart PO 0950 Albuterol Sulfate 3 ML Q4P PRN 05/14 1200 AC 05/14 INH 1152 Albuterol Sulfate 2 PUF Q4-6 PRN PRN 05/14 0415 AC 05/14 INH 1044 Aspirin 0 .STK-MED ONE 05/14 1653 DC PO Aspirin 325 MG ONCE ONE 05/14 1500 DC 05/14 PO 05/14 1501 1653 Aspirin Buffered 81 MG DAILY 05/14 1000 AC 05/14 PO 0950 Atorvastatin Calcium 20 MG 1700 05/14 1700 AC 05/14 PO 1653 Azithromycin 500 MG DAILY 05/14 1139 DC Sodium Chloride 250 ML IV Buspirone HCl 10 MG DAILY 05/14 1000 AC 05/14 PO 0950 Ceftriaxone Sodium 1,000 MG DAILY 05/15 0100 CAN Sodium Chloride 100 ML IV Ceftriaxone Sodium 1,000 MG Q24H 05/15 0100 AC 05/15 IV 0037 Fenofibrate 145 MG DAILY 05/14 1000 AC 05/14 PO 0950 Furosemide 20 MG ONCE ONE 05/14 1230 DC 05/14 IV 05/14 1231 1223 Furosemide 0 .STK-MED ONE 05/14 1224 DC IV Heparin Sodium 5,000 UNIT Q8 05/14 0600 AC 05/14 (Porcine) SC 2234 Insulin Aspart 0 TIDAC/HS 05/14 2254 AC 05/14 SC 2320 Insulin Aspart 0 TIDAC 05/14 0800 DC 05/14 SC 1653 Magnesium Sulfate 1 GM Q2H 05/14 0445 DC 05/14 Dextrose/Water 100 ML IV 05/14 0844 0737 Methylprednisolone 40 MG Q8 05/15 0600 AC 05/15 IV 0608 Methylprednisolone 0 .STK-MED ONE 05/14 1147 DC .ROUTE Methylprednisolone 125 MG ONCE ONE 05/14 1145 DC 05/14 IV 05/14 1146 1147 Metoprolol Tartrate 12.5 MG DAILY 05/14 1000 AC 05/14 PO 0950 Morphine Sulfate 2 MG Q4P PRN 05/14 0415 AC IV Non-Formulary 0 SEE ADMIN CRITERIA 05/14 1000 CAN Medication ANY Omeprazole 40 MG DAILY AC 05/14 0700 AC 05/15 PO 0603 Prochlorperazine 10 MG Q6P PRN 05/14 0700 AC IV Sodium Chloride 1,000 ML SEE RATE 05/14 0400 DC IV 05/14 1719 Last 24 Hrs of Lab/Gutierrez Results Last 24 Hrs of Labs/Mics: Laboratory Tests 05/14/17 1848: Troponin I 0.36 *H 05/14/17 1848: Lactic Acid 1.9 05/14/17 1328: Troponin I 0.47 *H 05/14/17 1000: Hemoglobin A1c 9.2 H Microbiology 05/14 1142 URINE ROUT: Legionella Antigen - COLB 05/14 1142 URINE ROUT: Streptococcus pneumoniae Antigen (M - COLB 05/14 1142 LOWER RESP: Respiratory Culture - COLB 05/14 1142 LOWER RESP: Gram Stain - COLB 05/14 1142 NASOPHARYN: Influenza Virus A & B Rapid Smear - COLB Orders Fingersticks (last 24 hrs): 252, 292, 196, 309, 489, 375, 248 Radiology Findings: SERVICE DATE: 05/13/17-2345 EXAM TYPE: RAD - XRY-PORTABLE CHEST XRAY FINDINGS: Lung volumes are symmetric. No focal consolidation is seen. No evidence of pneumothorax, pleural effusion, or pulmonary edema. The cardiomediastinal contour is unremarkable. No acute osseous findings are seen. IMPRESSION: No focal consolidation. SERVICE DATE: 05/14/17-0404 EXAM TYPE: US - US-COMPLETE ABDOMEN FINDINGS: PANCREAS: The visualized portions of the pancreas are normal. ABDOMINAL AORTA: The proximal segment is normal in caliber. INFERIOR VENA CAVA: Visualized portions are normal. LIVER: Liver has diffusely heterogeneous, coarse, hyperechoic echotexture without evidence of focal lesion or intrahepatic bile duct dilatation. There is mild surface nodularity of the hepatic contour, consistent with the history of cirrhosis. GALLBLADDER: Normal. The gallbladder is physiologically distended without evidence of stones, sludge, polyps, wall thickening or pericholecystic fluid. COMMON BILE DUCT: Normal in caliber measuring 0.5 cm in diameter. RIGHT KIDNEY: 10.9 cm in length. The kidney has normal cortical thickness and echotexture. No focal parenchymal lesion, hydronephrosis or nephrolithiasis. LEFT KIDNEY: 10.8 cm in length. The kidney has normal cortical thickness and echotexture. No focal parenchymal lesion, hydronephrosis or nephrolithiasis. SPLEEN: Normal. The spleen measures 9.8 cm in maximum dimension. FREE FLUID: None. IMPRESSION: 1. No evidence of ascites. 2. Gallbladder is normal. 3. Liver has coarse, hyperechoic echotexture from cirrhosis and/or steatosis. No sonographic evidence of hepatoma. Assessment/Plan Assessment: In summary this is a 72 year old female with a PMH of asthma, NIDDM, ?CHF, anemia, renal stones, non-alcoholic cirhossis who presented to with c/o altered menattioins, increasing lethargy, and urinary frequency and burning micturition. Vitals on admission BP: 141/63, HR: 123, Tamx: 102.7F, saturating 94% on 1.0 liters of O2. On physical exam, she was A & O 3, cooperative, and in moderate distress. Examination of neck did not reveal an elevated JVP, neck was supple and no LAD. HEENT revealed dry mucous membranes, facial plethora.. Cardiovascular exam revealed S1-S2, RRR. respiartory exam pertinent for CTAB. Abdominal exam was benign with abdomen Soft, NT, ND, bowel sounds present mild suprapubic tenderness, no CVA tenderness. Neuro exam was grossly unremarkable. Exam, inationof lower extremities did not reveal dependent edema, obvious skin rashes or inflammation. Labs pertinent for 96% neutrophils, 3 bands and WBC: 10,800, H&H: 8.5/26.2, bicarbonate 18, lactate 3.3, anion gap 16, creatinine increased to 2.0 from 1.5, glucose 285, LFTs unremarkable, troponin 0.03, proBNP 181, UA positive for nitrites and leukocyte esterase. CXR showed no focal consolidation. EKG showed new onset LBBB, sinus tachycardia 120's. No ST-T changes. She was admitted to Telemetry given EKG changes and the following problems are being addressed: Assessmnent and Plan #Sepsis 2/2 UTI - Patient is growing GNR in her blood cultures. UC is still pending - Continue IV Ceftriaxone 1000mg daily pending results of sensitivities, and tailor antibiotics accordingly for a total of 14 days. - Abdominal US done yesterady did not show any evidence of pyelonephritis. - Continue to watch for fevers and worsening S&S. COnsider CT abdomen if symtoms worsen. #Elevated troponins in the setting of new onset LBBB - Most likely 2/2 demand ischemia and tahcycardia induced LBBB - Her troponins trended down yesterday 0.03-->0.10-->0.47-->0.36 - She would probably benefit from a stress test and or coronary angiogram given that she is diabetic. - F/U with her health outcomes liaison Dr. Yovany Nicole upon discharge. - F/U Echocardiogram to r/o any RWMA. - Continue on ASA 81mg daily, Atorvastatin 20mg daily, Metoprolol XL25mg daily ( patient was started on 12.5mg of Lopressor). Resume Losartan once her GENI resolves. #Asthma exacerbation - She was in respiratory distress yesterday and was adminstered nebulizer treatment and started on steroids. - Continue on IV Solumedrol for now, and taper steroids accordingly. #GENI on CKD - Resolving. - Most likely pre-renal given she was septic and dehydrated. -Her baseline Cr is 1.2 as per records obtained from her primary care phsyican's office. - F/U BEP in AM - Holding Losartan and Lasix, and HCTZ #NIDDM Her FSG's continue to be in 200's, most lilely being on steroids. Her sliding scale was uptitrated to high dose. Continue to hold her home OHG meds. Accu- checks TIDAC/HS #Chronic anemia - Currently stable. - Being worked up by her PCP as an OP. - Apparently endoscopy and colonoscopy were negative. - COntinue to moniter - DVT prophylaxis - Heparin 5000IU TID SC - Diet - Diabetic - Code Status - Full Code. Problem List: 1. UTI (urinary tract infection) 2. Sepsis secondary to UTI 3. GENI (acute kidney injury) 4. Diabetes Pain Ratin Pain Location: N/A Pain Goal: Remain pain free Pain Plan: Vicodin Tomorrow's Labs & Rationales: CBC- leukocytosis BEP - Cr
[2017-05-15 08:24] VITALS: BP 124/64
[2017-05-15 08:25] LABS: ABSOLUTE BASOPHIL COUNT 0 /CUMM (0.0-0.2); ABSOLUTE EOSINOPHIL COUNT 0 /CUMM (0.0-0.7); ABSOLUTE GRANULOCYTE CT 8.4 /CUMM (1.4-6.5); ABSOLUTE LYMPH COUNT 1.2 /CUMM (1.2-3.4); ABSOLUTE MONOCYTE COUNT 0.5 /CUMM (0.10-0.60); BASOPHIL % 0.2 % (0.0-2.0); EOSINOPHIL % 0.1 % (0-5); HEMATOCRIT 23.9 % (37-47); MEAN CORPUSCULAR HGB 27.1 PG (27.0-31.0); MEAN CORPUSCULAR HGB CONC 32.8 G/DL (33.0-37.0); MEAN CORPUSCULAR VOLUME 82.7 FL (81.0-99.0); MEAN PLATELET VOLUME 9.9 FL (7.4-10.4); PLATELET COUNT 213 /CUMM (130-400); RBC DISTRIBUTION WIDTH 16.7 % (11.5-14.5); RED BLOOD CELL CT 2.89 /CUMM (4.20-5.40); WHITE BLOOD CELL COUNT 10.1 /CUMM (4.8-10.8)
--- NOTE | 2017-05-15 09:00 | PN- Cardiology ---
Subjective Subjective: Telemetry personally reviewed by me. Sinus rhythm rate of 82. Patient claims to feel much better than before sitting in the edge of the bed on the telephone. No arrhythmias overnight. Stable vital signs. Objective Vital Signs and I&Os Vital Signs Date Time Temp Pulse Resp B/P B/P Pulse O2 O2 Flow FiO2 Mean Ox Delivery Rate 05/15 0824 98.5 83 18 124/64 94 Room Air 05/15 0016 97.4 84 16 188/60 93 05/14 2221 97.8 89 18 122/64 92 Room Air 05/14 2051 98.6 76 18 128/64 97 Room Air 05/14 1636 86 18 138/63 96 Room Air 05/14 1454 98.4 85 18 117/56 97 05/14 1303 94 Nasal 2.0L Cannula 05/14 1257 Nasal 2.0L Cannula 05/14 1218 101.7 05/14 1213 101.7 95 24 143/63 93 Nasal 2.0L Cannula 05/14 1058 100.7 05/14 1041 100.7 95 20 146/74 94 05/14 0950 88 103/59 Intake & Output 05/15 1600 05/15 0800 05/15 0000 05/14 1600 05/14 0800 05/14 0000 Intake Total 995 707 4453 Output Total 1200 Balance 070 117 7397 Intake, IV 3200 Intake, Oral 240 400 Number 2 Bowel Movements Output, Urine 1200 Patient 145 lb 145 lb Weight Weight Reported by Patient Estimated Measurement Method Physical Exam: Gen. exam patient comfortable no distress Head normocephalic atraumatic Eyes sclera anicteric conjunctiva showed no pallor extraocular muscles were normal Neck no jugular venous distention no thyroid masses no palpable nodes Chest lungs were clear bilaterally no audible wheezing air entry equal Heart regular rhythm with a 1/6 systolic murmur Abdomen soft no organomegaly nontender neck and extremities no clubbing cyanosis or pedal edema Neurological no gross motor or sensory deficits Current Medications: Current Medications Sig/Leslie Start time Last Medication Dose Route Stop Time Status Admin Acetaminophen 0 .STK-MED ONE 05/14 1101 DC IV Acetaminophen 1,000 MG Q6P PRN 05/14 1100 AC 05/14 N/A 1 UNIT IV 1058 Acetaminophen/ 0 .STK-MED ONE 05/14 0945 DC Hydrocodone Bitart PO Acetaminophen/ 1 TAB Q6P PRN 05/14 0415 AC 05/14 Hydrocodone Bitart PO 0950 Albuterol Sulfate 3 ML Q4P PRN 05/14 1200 AC 05/14 INH 1152 Albuterol Sulfate 2 PUF Q4-6 PRN PRN 05/14 0415 AC 05/14 INH 1044 Aspirin 0 .STK-MED ONE 05/14 1653 DC PO Aspirin 325 MG ONCE ONE 05/14 1500 DC 05/14 PO 05/14 1501 1653 Aspirin Buffered 81 MG DAILY 05/14 1000 AC 05/14 PO 0950 Atorvastatin Calcium 20 MG 1700 05/14 1700 AC 05/14 PO 1653 Azithromycin 500 MG DAILY 05/14 1139 DC Sodium Chloride 250 ML IV Buspirone HCl 10 MG DAILY 05/14 1000 AC 05/14 PO 0950 Ceftriaxone Sodium 1,000 MG DAILY 05/15 0100 CAN Sodium Chloride 100 ML IV Ceftriaxone Sodium 1,000 MG Q24H 05/15 0100 AC 05/15 IV 0037 Fenofibrate 145 MG DAILY 05/14 1000 AC 05/14 PO 0950 Furosemide 20 MG ONCE ONE 05/14 1230 DC 05/14 IV 05/14 1231 1223 Furosemide 0 .STK-MED ONE 05/14 1224 DC IV Heparin Sodium 5,000 UNIT Q8 05/14 0600 AC 05/14 (Porcine) SC 2234 Insulin Aspart 0 TIDAC/HS 05/14 2254 AC 05/14 SC 2320 Insulin Aspart 0 TIDAC 05/14 0800 DC 05/14 SC 1653 Methylprednisolone 40 MG Q8 05/15 0600 AC 05/15 IV 0608 Methylprednisolone 0 .STK-MED ONE 05/14 1147 DC .ROUTE Methylprednisolone 125 MG ONCE ONE 05/14 1145 DC 05/14 IV 05/14 1146 1147 Metoprolol Tartrate 12.5 MG DAILY 05/14 1000 AC 05/14 PO 0950 Morphine Sulfate 2 MG Q4P PRN 05/14 0415 AC IV Non-Formulary 0 SEE ADMIN CRITERIA 05/14 1000 CAN Medication ANY Omeprazole 40 MG DAILY AC 05/14 0700 AC 05/15 PO 0603 Prochlorperazine 10 MG Q6P PRN 05/14 0700 AC IV Sodium Chloride 1,000 ML SEE RATE 05/14 0400 DC IV 05/14 1719 Results Last 48 Hrs of Labs/Mics: Laboratory Tests 05/15/17 0652: Anion Gap 13, Estimated GFR 32 L, BUN/Creatinine Ratio 21.9, CBC w Diff Pending , WBC Pending, RBC Pending, Hgb Pending, Hct Pending, MCV Pending, MCH Pending, RDW Pending, Plt Count Pending, MPV Pending, PUBS MCHC Pending 05/14/17 1848: Troponin I 0.36 *H 05/14/17 1848: Lactic Acid 1.9 05/14/17 1328: Troponin I 0.47 *H 05/14/17 1000: Hemoglobin A1c 9.2 H 05/14/17 0615: Anion Gap 13, Estimated GFR 30 L, BUN/Creatinine Ratio 22.9, Troponin I 0.10 05/14/17 0615: Ammonia 15, PT 13.2 H, INR 1.26 H, CBC w Diff NO MAN DIFF REQ, RBC 2.91 L, MCV 82.2, MCH 26.7 L, RDW 16.1 H, MPV 8.9, Gran % 88.9 H, Lymphocytes % 6.8 L, Monocytes % 4.3, Eosinophils % 0, Basophils % 0 L, Absolute Granulocytes 10.4 H, Absolute Lymphocytes 0.8 L, Absolute Monocytes 0.5, Absolute Eosinophils 0, Absolute Basophils 0, PUBS MCHC 32.4 L, Hepatitis A IgM Ab NONREACTIVE, Hep Bs Antigen NONREACTIVE, Hep B Core IgM Ab Conf NONREACTIVE, Hepatitis C Antibody NONREACTIVE 05/14/17 0235: Lactic Acid 2.1 05/14/17 0012: Anion Gap 16, Estimated GFR 24 L, BUN/Creatinine Ratio 22.5, Glucose 285 H, Lactic Acid 3.3 H, Calcium 9.0, Magnesium 0.9 *L, Total Bilirubin 0.4, AST 38 H, ALT 28, Alkaline Phosphatase 60, Troponin I 0.03, Jlp-M-Dubyjgnkceu Pept 181 H, Total Protein 6.8, Albumin 3.7, Globulin 3.1, Albumin/Globulin Ratio 1.2, CBC w Diff MAN DIFF ORDERED, RBC 3.20 L, MCV 81.7, MCH 26.7 L, RDW 16.3 H, MPV 9.6, Gran % 95.5 H, Lymphocytes % 3.1 L, Monocytes % 1.1 L, Eosinophils % 0.2 , Basophils % 0.1, Absolute Granulocytes 10.2 H, Segmented Neutrophils 90 H, Band Neutrophils 3, Absolute Lymphocytes 0.3 L, Lymphocytes 5 L, Monocytes 2, Absolute Monocytes 0.1 L, Absolute Eosinophils 0, Absolute Basophils 0, Platelet Estimate ADEQUATE, Polychromasia 1+, Hypochromic-Microcytic 1+, Poikilocytosis 1+, Ovalocytes 1+, PUBS MCHC 32.6 L, Fld Total RBCs Counted 100 05/13/17 2355: Urine Color YEL, Urine Clarity HAZY H, Urine pH 6.0, Ur Specific [place] 1.010, Urine Protein 30 H, Urine Ketones NEG, Urine Nitrite POS H, Urine Bilirubin NEG, Urine Urobilinogen 0.2, Ur Leukocyte Esterase MOD H, Ur Microscopic SEDIMENT EXAMINED, Urine RBC 1-3, Urine WBC 25-50 H, Ur Epithelial Cells FEW, Urine Bacteria MANY H, Urine Mucus RARE, Urine Hemoglobin MOD H, Urine Glucose >=1000 H Assessment/Plan Assessment/Plan In summary Mrs. Escalante as the following problems 1. Urosepsis with fever, gram-negative rods noted 2. Renal insufficiency, improving by recent labs 3. Anemia, uncertain etiology possibly sepsis but further labs pending today 4. New left bundle-branch block, by telemetry QRS seems to have narrowed and may be this was a rate related left bundle branch bloc 5. Asthma with bronchospasm, significantly improved no wheezing audible on exam today 7. History of hypertension/hyperlipidemia/diabetes 8. Positive troponins although drifting downwards. Suspect this is related to supply demand mismatch and related to sepsis superimposed and diabetes. Patient had a negative nuclear stress test and normal echocardiogram reportedly in 2017. Echocardiogram is currently pending. She appears to have improved dramatically and the marked improvement suggests possible underlying sepsis is the main cause and troponin leak related to supply demand mismatch. Await echocardiogram, no arrhythmias on telemetry, follow anemia otherwise workup needed. Continue telemetry? Yes
[2017-05-15 09:45] LABS: GRANULOCYTE % 83.4 % (42.2-75.2)
[2017-05-15 16:04] VITALS: BP 136/70
--- NOTE | 2017-05-15 20:40 | ECHOCARDIOGRAM REPORT ---
NATHAN TIDWELL Age: 72 : 1945 Gender: F Exam Date: 05/15/2017 17:10 Exam Location: [address] Ht (in): 65 Wt (lb): 145 BSA: 1.75 BP: 124 / 64 Ordering Physician: RJ COPELAND MD Referring Physician: Suhail Pollard M.D. Technologist: Kamala Briseno RDCS Room Number: 180-02 Indications: SHORTNESS OF BREATH Rhythm: Sinus Technical Quality: Fair FINDINGS Left Ventricle Normal global left ventricular size, wall thickness, systolic function with no obvious regional wall motion abnormalities. Normal left ventricular ejection fraction estimated at 60-65%. Restrictive filling pattern of the left ventricle for age (stage 3 diastolic dysfunction). Right Ventricle Normal right ventricular size and function. Right Atrium Normal right atrial size. Left Atrium Mild left atrial dilatation. Mitral Valve Mild mitral annular calcification. Moderate mitral regurgitation. Aortic Valve Diffuse thickening (sclerosis) of the aortic valve cusps without reduced excursion. Tricuspid Valve Tricuspid valve is normal in structure and function. Mild-to- moderate tricuspid regurgitation. Right ventricular systolic pressure estimated to be elevated at 50 mmHg. Pulmonic Valve Pulmonic valve not well visualized, grossly normal. Pericardium No pericardial effusion. Great Vessels Normal size aortic root. CONCLUSIONS Normal left and right ventricular systolic function. Stage 3 diastolic dysfunction. Mild left atrial enlargement. Moderate Mitral and Mild Tricuspid Regurgitation with Moderate Pulmonary hypertension. Vimal Pratt M.D. (Electronically Signed) Final Date: 15 May 2017 20:39 MEASUREMENTS (Male / Female) Normal Values 2D ECHO LV Diastolic Diameter PLAX 4.1 cm 4.2 - 5.9 / 3.9 - 5.3 cm LV Systolic Diameter PLAX 2.7 cm 2.1 - 4.0 cm LV Fractional Shortening PLAX 34.1 % 25 - 46 % LV Ejection Fraction 2D Teich 63.6 % IVS Diastolic Thickness 1.0 cm LVPW Diastolic Thickness 1.1 cm LV Relative Wall Thickness 0.5 RV Internal Dim ED PLAX 2.5 cm 1.9 - 3.8 cm LVOT Diameter 1.8 cm Aortic Root Diameter 2.4 cm LA Systolic Diameter LX 4.3 cm 3.0 - 4.0 / 2.7 - 3.8 cm LA Volume 28.0 cm 18 - 58 / 22 - 52 cm Ascending Aorta Diameter 2.6 cm DOPPLER AV Peak Velocity 153.0 cm/s AV Peak Gradient 9.4 mmHg AV Mean Velocity 116.0 cm/s AV Mean Gradient 6.0 mmHg AV Velocity Time Integral 33.8 cm LVOT Peak Velocity 160.0 cm/s LVOT Peak Gradient 10.2 mmHg LVOT Mean Velocity 104.0 cm/s LVOT Mean Gradient 5.0 mmHg LVOT Velocity Time Integral 28.8 cm LVOT Stroke Volume 73.3 cm AV Area Cont Eq vti 2.2 cm AV Area Cont Eq pk 2.7 cm MV Peak Velocity 143.0 cm/s MV Peak Gradient 8.2 mmHg MV Mean Velocity 81.1 cm/s MV Mean Gradient 3.0 mmHg Mitral E Point Velocity 112.0 cm/s Mitral A Point Velocity 79.0 cm/s Mitral E to A Ratio 1.4 MV PHT Velocity 153.0 cm/s MV Deceleration Bowie 640.0 cm/s MV Pressure Half Time 71.7 ms MV Area PHT 3.1 cm MV Deceleration Time 114.0 ms TR Peak Velocity 361.0 cm/s TR Peak Gradient 52.1 mmHg Right Atrial Pressure 5.0 mmHg Pulmonary Artery Systolic Pressu 57.1 mmHg Right Ventricular Systolic Press 57.1 mmHg PV Peak Velocity 106.0 cm/s PV Peak Gradient 4.5 mmHg PV Mean Velocity 70.1 cm/s PV Mean Gradient 2.0 mmHg PV Velocity Time Integral 22.2 cm LV E' Lateral Velocity 8.7 cm/s Mitral E to LV E' Lateral Ratio 12.9 LV E' Septal Velocity 9.7 cm/s Mitral E to LV E' Septal Ratio 11.6
[2017-05-16 00:54] VITALS: BP 140/78
--- NOTE | 2017-05-16 07:22 | PN- Housestaff ---
RJ COPELAND 05/16/17 0722: Subjective Follow-up For: UTI Asthma exacerbation Tele-Events Since Last Visit: SR 76-94 Subjective: Patient seen and examined at bedside. She states she didn't sleep well last night. Deneis any chest pain, aplpitatiosn, nasuea, vomiting. She states she may have an epiodes where she was drenched in sweat. Offers no other complaints. Review of Systems Constitutional: Denies: chills, diaphoresis, malaise, weakness. EENTM: Denies: visual changes. Cardiovascular: Denies: chest pain, orthopena, palpitations. Respiratory: Reports: wheezing. Denies: cough, hemoptysis, short of breath, sputum production. Gastrointestinal: Denies: abdominal pain, constipation, diarrhea, nausea, vomiting. Genitourinary: Denies: discharge, dysuria, frequency, hematuria, pain, urgency. Musculoskeletal: Reports: no symptoms. Neurological/Psychological: Denies: headache, numbness, tingling, tremors. Objective Last 24 Hrs of Vital Signs/I&O Vital Signs Date Time Temp Pulse Resp B/P B/P Pulse O2 O2 Flow FiO2 Mean Ox Delivery Rate 05/16 0552 98.5 95 Room Air 05/16 0054 103.2 88 16 140/78 96 Nasal Cannula 05/16 0000 95 Nasal 2.0L Cannula 05/15 1927 100.7 05/15 1900 93 Room Air Room Air 05/15 1604 98.6 86 18 136/70 98 Room Air 05/15 1134 83 124/64 05/15 1133 93 Room Air Room Air 05/15 0824 98.5 83 18 124/64 94 Room Air Intake & Output 05/16 0800 05/16 0000 05/15 1600 Intake Total 260 240 480 Output Total 400 Balance -140 240 480 Intake, IV 20 Intake, Oral 240 240 480 Output, Urine 400 Patient 145 lb Weight Physical Exam General Appearance: Alert, Oriented X3, Cooperative, No Acute Distress HEENT: Atraumatic, PERRLA, EOMI, Mucous Membr. moist/pink Neck: Supple, No JVD, No thryomegaly, +2 Carotid Pulse wo Bruit, No LAD Cardiovascular: Regular Rate, Normal S1, Normal S2, No Murmurs Lungs: Clear to Auscultation, Normal Air Movement Abdomen: Normal Bowel Sounds, Soft, No Tenderness, No Hepatospenomegaly, No Masses Neurological: Normal Gait, Normal Speech, Strength at 5/5 X4 Ext, Normal Tone, Sensation Intact, Cranial Nerves 3-12 NL, Reflexes 2+ Extremities: No Clubbing, No Cyanosis, No Edema, Normal Pulses, No Tenderness/ Swelling Vascular: Normal Pulses, Pulses Symmetrical Current Medications: Current Medications Sig/Leslie Start time Last Medication Dose Route Stop Time Status Admin Acetaminophen 1,000 MG Q6P PRN 05/14 1100 AC 05/14 N/A 1 UNIT IV 1058 Acetaminophen/ 1 TAB Q6P PRN 05/14 0415 AC 05/15 Hydrocodone Bitart PO 1926 Albuterol Sulfate 3 ML Q4P PRN 05/14 1200 AC 05/15 INH 1243 Albuterol Sulfate 2 PUF Q4-6 PRN PRN 05/14 0415 AC 05/14 INH 1044 Aspirin Buffered 81 MG DAILY 05/14 1000 AC 05/15 PO 0915 Atorvastatin Calcium 20 MG 1700 05/14 1700 AC 05/15 PO 1749 Buspirone HCl 10 MG DAILY 05/14 1000 AC 05/15 PO 0915 Ceftriaxone Sodium 1,000 MG Q24H 05/15 0100 AC 05/16 IV 0047 Fenofibrate 145 MG DAILY 05/14 1000 AC 05/15 PO 0916 Heparin Sodium 5,000 UNIT Q8 05/14 0600 AC 05/16 (Porcine) SC 0704 Insulin Aspart 0 TIDAC/HS 05/14 2254 AC 05/15 SC 2222 Melatonin 3 MG AT BEDTIME PRN 05/16 0145 AC 05/16 PO 0136 Methylprednisolone 40 MG Q12 05/15 2200 AC 05/15 IV 2222 Methylprednisolone 40 MG Q8 05/15 0600 DC 05/15 IV 0608 Metoprolol Succinate 25 MG DAILY 05/15 1000 AC 05/15 PO 1134 Metoprolol Tartrate 12.5 MG DAILY 05/14 1000 DC 05/14 PO 0950 Morphine Sulfate 2 MG Q4P PRN 05/14 0415 AC IV Omeprazole 40 MG DAILY AC 05/14 0700 AC 05/16 PO 0701 Patient Medication 1 ED .STK-MED ONE 05/15 1356 FL Teaching ED 05/15 1357 Prochlorperazine 10 MG Q6P PRN 05/14 0700 AC IV Last 24 Hrs of Lab/Gutierrez Results Last 24 Hrs of Labs/Mics: Laboratory Tests 05/16/17 0535: Sodium Pending, Potassium Pending, Chloride Pending, Carbon Dioxide Pending, Anion Gap Pending, BUN Pending, Creatinine Pending, BUN/Creatinine Ratio Pending , CBC w Diff Pending, WBC Pending, RBC Pending, Hgb Pending, Hct Pending, MCV Pending, MCH Pending, RDW Pending, Plt Count Pending, MPV Pending, PUBS MCHC Pending Orders Fingersticks (last 24 hrs): 368, 377, 264, 188, 302 ECHO Findings: FINDINGS Left Ventricle Normal global left ventricular size, wall thickness, systolic function with no obvious regional wall motion abnormalities. Normal left ventricular ejection fraction estimated at 60-65%. Restrictive filling pattern of the left ventricle for age (stage 3 diastolic dysfunction). Right Ventricle Normal right ventricular size and function. Right Atrium Normal right atrial size. Left Atrium Mild left atrial dilatation. Mitral Valve Mild mitral annular calcification. Moderate mitral regurgitation. Aortic Valve Diffuse thickening (sclerosis) of the aortic valve cusps without reduced excursion. Tricuspid Valve Tricuspid valve is normal in structure and function. Mild-to- moderate tricuspid regurgitation. Right ventricular systolic pressure estimated to be elevated at 50 mmHg. Pulmonic Valve Pulmonic valve not well visualized, grossly normal. Pericardium No pericardial effusion. Great Vessels Normal size aortic root. CONCLUSIONS Normal left and right ventricular systolic function. Stage 3 diastolic dysfunction. Mild left atrial enlargement. Moderate Mitral and Mild Tricuspid Regurgitation with Moderate Pulmonary hypertension. Vimal Pratt M.D. (Electronically Signed) Final Date: 15 May 2017 20:39 MEASUREMENTS (Male / Female) Normal Values 2D ECHO LV Diastolic Diameter PLAX 4.1 cm 4.2 - 5.9 / 3.9 - 5.3 cm LV Systolic Diameter PLAX 2.7 cm 2.1 - 4.0 cm LV Fractional Shortening PLAX 34.1 % 25 - 46 % LV Ejection Fraction 2D Teich 63.6 % IVS Diastolic Thickness 1.0 cm LVPW Diastolic Thickness 1.1 cm LV Relative Wall Thickness 0.5 RV Internal Dim ED PLAX 2.5 cm 1.9 - 3.8 cm LVOT Diameter 1.8 cm Aortic Root Diameter 2.4 cm LA Systolic Diameter LX 4.3 cm 3.0 - 4.0 / 2.7 - 3.8 cm LA Volume 28.0 cm 18 - 58 / 22 - 52 cm Ascending Aorta Diameter 2.6 cm DOPPLER AV Peak Velocity 153.0 cm/s AV Peak Gradient 9.4 mmHg AV Mean Velocity 116.0 cm/s AV Mean Gradient 6.0 mmHg AV Velocity Time Integral 33.8 cm LVOT Peak Velocity 160.0 cm/s LVOT Peak Gradient 10.2 mmHg LVOT Mean Velocity 104.0 cm/s LVOT Mean Gradient 5.0 mmHg LVOT Velocity Time Integral 28.8 cm LVOT Stroke Volume 73.3 cm AV Area Cont Eq vti 2.2 cm AV Area Cont Eq pk 2.7 cm MV Peak Velocity 143.0 cm/s MV Peak Gradient 8.2 mmHg MV Mean Velocity 81.1 cm/s MV Mean Gradient 3.0 mmHg Mitral E Point Velocity 112.0 cm/s Mitral A Point Velocity 79.0 cm/s Mitral E to A Ratio 1.4 MV PHT Velocity 153.0 cm/s MV Deceleration [place] 640.0 cm/s MV Pressure Half Time 71.7 ms MV Area PHT 3.1 cm MV Deceleration Time 114.0 ms TR Peak Velocity 361.0 cm/s TR Peak Gradient 52.1 mmHg Right Atrial Pressure 5.0 mmHg Pulmonary Artery Systolic Pressu 57.1 mmHg Right Ventricular Systolic Press 57.1 mmHg PV Peak Velocity 106.0 cm/s PV Peak Gradient 4.5 mmHg PV Mean Velocity 70.1 cm/s PV Mean Gradient 2.0 mmHg PV Velocity Time Integral 22.2 cm LV E' Lateral Velocity 8.7 cm/s Mitral E to LV E' Lateral Ratio 12.9 LV E' Septal Velocity 9.7 cm/s Mitral E to LV E' Septal Ratio 11.6 Assessment/Plan Assessment: In summary, this is a 72 year old female with a PMH of asthma, NIDDM, ?CHF, chronic anemia, renal stones, non-alcoholic cirhossis who presented to with c /o altered menattioins, increasing lethargy, and urinary frequency and burning micturition. Vitals on admission BP: 141/63, HR: 123, Tamx: 102.7F, saturating 94% on 1.0 liters of O2. On physical exam, she was A & O 3, cooperative, and in moderate distress. Examination of neck did not reveal an elevated JVP, neck was supple and no LAD. HEENT revealed dry mucous membranes, facial plethora.. Cardiovascular exam revealed S1-S2, RRR. respiartory exam pertinent for CTAB. Abdominal exam was benign with abdomen Soft, NT, ND, bowel sounds present mild suprapubic tenderness, no CVA tenderness. Neuro exam was grossly unremarkable. Exam, inationof lower extremities did not reveal dependent edema, obvious skin rashes or inflammation. Labs pertinent for 96% neutrophils, 3 bands and WBC: 10,800, H&H: 8.5/26.2, bicarbonate 18, lactate 3.3, anion gap 16, creatinine increased to 2.0 from 1.5, glucose 285, LFTs unremarkable, troponin 0.03, proBNP 181, UA positive for nitrites and leukocyte esterase. CXR showed no focal consolidation. EKG showed new onset LBBB, sinus tachycardia 120's. No ST-T changes. She was admitted to Telemetry given EKG changes and the following problems are being addressed: Assessmnent and Plan #Sepsis 2/2 UTI - Patient is growing GNR in her blood culturesa nd urine culture. Awaiting sensitivities and final culture results. - Continue IV Ceftriaxone 1000mg daily pending results of sensitivities, and tailor antibiotics accordingly for a total of 14 days. - Abdominal US did not show any evidence of pyelonephritis. - Continue to watch for fevers and worsening S&S. Consider CT abdomen if symtoms worsen. - Patient #Elevated troponins in the setting of new onset LBBB - Most likely 2/2 demand ischemia and tahcycardia induced LBBB - Her troponins trended down yesterday 0.03-->0.10-->0.47-->0.36 - She would probably benefit from a stress test and or coronary angiogram given that she is diabetic. - F/U with her filter plant supervisor Dr. Yovany Nicole upon discharge. - F/U Echocardiogram to r/o any RWMA. - Continue on ASA 81mg daily, Atorvastatin 20mg daily, Metoprolol XL25mg daily ( patient was started on 12.5mg of Lopressor). Resume Losartan once her GENI resolves. #Asthma exacerbation - She was in respiratory distress yesterday and was adminstered nebulizer treatment and started on steroids. - Continue on IV Solumedrol 40mg daily, and trasnition to PO steroids tomorrow, and #GENI on CKD Stage - Resolving. - Most likely pre-renal given she was septic and dehydrated. -Her baseline Cr is 1.2 as per records obtained from her primary care phsyican's office. - F/U BEP in AM - Holding Losartan and Lasix, and HCTZ #NIDDM Her FSG's continue to be in 200-300's, most likely being on steroids. Her sliding scale was uptitrated to high dose. Continue to hold her home OHG meds. Accu- checks TIDAC/HS #Chronic anemia - Records obtained form her PCP revealed that her H&H is 10 - Being worked up by her PCP as an OP. - Apparently endoscopy and colonoscopy were negative. - Continue to moniter H&H - F/U stool guiac - DVT prophylaxis - Heparin 5000IU TID SC - Diet - Diabetic - Code Status - Full Code. Problem List: 1. Sepsis secondary to UTI Pain Ratin Pain Location: N/A Pain Goal: Remain pain free Pain Plan: TEYLNOL Tomorrow's Labs & Rationales: BEP - CR CBC- WBC Discharge Plan Discharge Disposition: home Anticipated Discharge (Day): tomorrow JOEL BUSH MD 05/16/17 1232: Attending MD Review Statement Attending Statement Attending MD Statement: examined this patient, discuss w/resident/PA/TRANSPORT [employer]IC, agreed w/resident/PA/[employer]SPORT [employer]IC, reviewed EMR data (avail), discussed with nursing, discussed with case mgmt, amended to note Attending Assessment/Plan: Patient seen and examined. Doing well. Ambulating freely around the unit. No new complaints today. No events on telemetry. Denies chest pain or shortness of breath. Denies nausea vomiting. Denies dysuria. On examination lungs are clear bilaterally. Does report of temperature 103 yesterday however repeat temperature was reported to be normal. She is hemodynamically stable. She has mild leukocytosis which may be related to her steroid use. She does not appear in any way toxic. She is growing pansensitive Escherichia coli in the urine and blood. Recommendations: -Patient remains afebrile overnight she may be transition to Keflex to complete 14 days of antibiotic therapy. She should follow-up with her primary care provider for repeat cultures as an outpatient. -Continue bronchodilator therapy as needed. Begin prednisone taper. -Echocardiogram shows stage III diastolic dysfunction with normal ejection fraction. She has no evidence of volume overload at present. Continue conservative management. -She has a history of chronic kidney disease stage III. Creatinine is currently improving compared to admission. -She has a history of chronic and deficiency anemia. Hemoglobin level is relatively stable following IV hydration on admission. Repeat CBCs in a.m. prior to discharge. -Follow-up with the cardiology service regarding continued need for telemetry monitoring.
[2017-05-16 07:57] LABS: ABSOLUTE BASOPHIL COUNT 0 /CUMM (0.0-0.2); ABSOLUTE EOSINOPHIL COUNT 0 /CUMM (0.0-0.7); ABSOLUTE GRANULOCYTE CT 10.3 /CUMM (1.4-6.5); ABSOLUTE LYMPH COUNT 0.9 /CUMM (1.2-3.4); ABSOLUTE MONOCYTE COUNT 0.4 /CUMM (0.10-0.60); BASOPHIL % 0.2 % (0.0-2.0); EOSINOPHIL % 0.1 % (0-5); HEMATOCRIT 23.9 % (37-47); MEAN CORPUSCULAR HGB 27.1 PG (27.0-31.0); MEAN CORPUSCULAR HGB CONC 33.1 G/DL (33.0-37.0); MEAN PLATELET VOLUME 10.1 FL (7.4-10.4); PLATELET COUNT 232 /CUMM (130-400); RBC DISTRIBUTION WIDTH 16.5 % (11.5-14.5); RED BLOOD CELL CT 2.91 /CUMM (4.20-5.40); WHITE BLOOD CELL COUNT 11.6 /CUMM (4.8-10.8)
[2017-05-16 08:24] VITALS: BP 148/74
[2017-05-16 09:03] LABS: GRANULOCYTE % 88.5 % (42.2-75.2)
[2017-05-16] MEDS ORDERED: KEFLEX500 M1 PO (12:52)
--- NOTE | 2017-05-16 12:55 | Patient Discharge Instructions ---
Discharge Instructions General Discharge Information You were seen/treated for: Sepsis 2/2 UTI Asthma exacerbation Special Instructions: Please follow up with your primary care physiciain in one week for repeat cultures as an outpatient. Please follow up with your communications engineering technician in one week. Please follwo the Prednisone taper as follows: Please take 4 tablets on 05/18/17 Please take 3 tablets on 05/19/17 Please take 2 tabs on 05/20/17 Please take 1 tablet on 05/21/17 and then stop Diet Recommended Diet: Diabetic Activity Activity Self Limited: Yes Acute Coronary Syndrome Inclusion Criteria At DC or during hospital stay patient has or had the following: ACS DIAGNOSIS No Discharge Core Measures Meds if any: Prescribed or Continued at Discharge Meds if any: NOT Prescribed or Continued at Discharge Congestive Heart Failure Inclusion Criteria At DC or during hospital stay patient has or had the following: CHF DIAGNOSIS No Discharge Core Measures Meds if any: Prescribed or Continued at Discharge Meds if any: NOT Prescribed or Continued at Discharge Cerebrovascular accident Inclusion Criteria At DC or during hospital stay patient has or had the following: CVA/TIA Diagnosis No Discharge Core Measures Meds if any: Prescribed or Continued at Discharge Meds if any: NOT Prescribed or Continued at Discharge Venous thromboembolism Inclusion Criteria VTE Diagnosis No VTE Type NONE VTE Confirmed by (Test) NONE Discharge Core Measures - Per Current guidelines, there needs to be overlap - treatment for the first 5 days of Warfarin therapy. - If discharged on Warfarin prior to 5 days of - overlap therapy, the patient will need to be - assessed for post discharge needs including - *Post discharge parental anticoagulation - *Warfarin and/or parental anticoagulation education - *Follow up date to check INR post discharge At least 5 days overlap therapy as Inpatient No Meds if any: Prescribed or Continued at Discharge Note: Overlap Therapy is Warfarin and Anticoagulant Meds if any: NOT Prescribed or Continued at Discharge
[2017-05-16] MEDS ORDERED: PREDNISONE10 M2 PO (12:58)
--- NOTE | 2017-05-16 13:17 | Discharge Summary ---
Visit Information Visit Dates Admission Date: 05/14/17 Discharge Date: 05/17/17 Hospital Course Course Attending Physician: JOEL BUSH M.D Primary Care Physician: CRISTOFER GRAY,ANDREW Min Consulting Request: Consulting Specialty: Cardiology Hospital Course: In summary, this is a 72 year old female with a PMH of asthma, NIDDM, ?CHF, chronic anemia, renal stones, non-alcoholic cirhossis who presented to with c /o altered menattioins, increasing lethargy, and urinary frequency and burning micturition. Vitals on admission BP: 141/63, HR: 123, Tamx: 102.7F, saturating 94% on 1.0 liters of O2. On physical exam, she was A & O 3, cooperative, and in moderate distress. Examination of neck did not reveal an elevated JVP, neck was supple and no LAD. HEENT revealed dry mucous membranes, facial plethora.. Cardiovascular exam revealed S1-S2, RRR. respiartory exam pertinent for CTAB. Abdominal exam was benign with abdomen Soft, NT, ND, bowel sounds present mild suprapubic tenderness, no CVA tenderness. Neuro exam was grossly unremarkable. Exam, inationof lower extremities did not reveal dependent edema, obvious skin rashes or inflammation. Labs pertinent for 96% neutrophils, 3 bands and WBC: 10,800, H&H: 8.5/26.2, bicarbonate 18, lactate 3.3, anion gap 16, creatinine increased to 2.0 from 1.5, glucose 285, LFTs unremarkable, troponin 0.03, proBNP 181, UA positive for nitrites and leukocyte esterase. CXR showed no focal consolidation. EKG showed new onset LBBB, sinus tachycardia 120's. No ST-T changes. She was admitted to Telemetry given EKG changes and the following problems are being addressed: She was admitted to Telemetry and the follwoing problems were addressed: #Sepsis 2/2 UTI - Her UA was concerning for UTI and blood cultures x2 and urine culture grew E.Coli. She was continued on IV Ceftriaxone 1000mg daily pending results of sensitivities, and was switche dto PO Keflex 500mg BID for a total of 14 days. An abdominal US was also done at the time of admission which did not show any evidence of pyelonephritis. She should follow up with her PCP for repeat cultures as an outpatient. #Elevated troponins in the setting of new onset LBBB - She was found to have a new onset LBBB,a nd her troponins trended up form 0.03 -->0.10-->0.47. This was thought to be most likely 2/2 demand ischemia and tachycardia induced LBBB. Cardiology was conulted who recommended tredning troponins adn to hold off starting her on IV Heprain. Her 4th set came down, and this was thought to be 2/2 demand ischemia, given patient was septic and in mild respiratory distress uppon admission. Her troponins trended down to 0.36 - She would probably benefit from a stress test and or coronary angiogram given that she is diabetic. She is to F/U with her administrative support specialist Dr. Jennie Nicole upon discharge. An Echocardiogram was done which r/o any RWMA,a nd showed stage III diastolic dysfunction. She was continued on ASA 81mg daily, Atorvastatin 20mg daily, Metoprolol XL25mg daily. Losartan was resumed on discharge since her GENI resolved. #Asthma exacerbation - She was in respiratory distress on admission and was adminstered nebulizer treatment and started on IV steroids with transition to PO steroid taper on discharge. #GENI on CKD Stage - Most likely pre-renal given she was septic and dehydrated. This continued to resolving. Records obtained form her PCP office revealed that her baseline Cr is 1.2 We held Losartan, Lasix, and HCTZ. #NIDDM SInce she was in the hospital, we held her home OHG meds. Her FSG's continue to be in 200-300's, most likely being on steroids. Her sliding scale was uptitrated to high dose. Her HbA1C was 9.2. #Chronic anemia - Records obtained form her PCP revealed that her H&H is 10. She was being worked up by her PCP as an OP. Apparently endoscopy and colonoscopy were negative. Her H&H in [facility] remained stable at 7.8-8.0. Stool guiac were negative. Allergies: Coded Allergies: NO KNOWN ALLERGIES (12/29/16) Significant Procedures: SERVICE DATE: 05/13/17-7102 EXAM TYPE: RAD - XRY-PORTABLE CHEST XRAY FINDINGS: Lung volumes are symmetric. No focal consolidation is seen. No evidence of pneumothorax, pleural effusion, or pulmonary edema. The cardiomediastinal contour is unremarkable. No acute osseous findings are seen. IMPRESSION: No focal consolidation. SERVICE DATE: 05/14/170404 EXAM TYPE: US - US-COMPLETE ABDOMEN FINDINGS: PANCREAS: The visualized portions of the pancreas are normal. ABDOMINAL AORTA: The proximal segment is normal in caliber. INFERIOR VENA CAVA: Visualized portions are normal. LIVER: Liver has diffusely heterogeneous, coarse, hyperechoic echotexture without evidence of focal lesion or intrahepatic bile duct dilatation. There is mild surface nodularity of the hepatic contour, consistent with the history of cirrhosis. GALLBLADDER: Normal. The gallbladder is physiologically distended without evidence of stones, sludge, polyps, wall thickening or pericholecystic fluid. COMMON BILE DUCT: Normal in caliber measuring 0.5 cm in diameter. RIGHT KIDNEY: 10.9 cm in length. The kidney has normal cortical thickness and echotexture. No focal parenchymal lesion, hydronephrosis or nephrolithiasis. LEFT KIDNEY: 10.8 cm in length. The kidney has normal cortical thickness and echotexture. No focal parenchymal lesion, hydronephrosis or nephrolithiasis. SPLEEN: Normal. The spleen measures 9.8 cm in maximum dimension. FREE FLUID: None. IMPRESSION: 1. No evidence of ascites. 2. Gallbladder is normal. 3. Liver has coarse, hyperechoic echotexture from cirrhosis and/or steatosis. No sonographic evidence of hepatoma. SERVICE DATE: 05/15/17- EXAM TYPE: CARD - ECHOCARDIOGRAM FINDINGS Left Ventricle Normal global left ventricular size, wall thickness, systolic function with no obvious regional wall motion abnormalities. Normal left ventricular ejection fraction estimated at 60-65%. Restrictive filling pattern of the left ventricle for age (stage 3 diastolic dysfunction). Right Ventricle Normal right ventricular size and function. Right Atrium Normal right atrial size. Left Atrium Mild left atrial dilatation. Mitral Valve Mild mitral annular calcification. Moderate mitral regurgitation. Aortic Valve Diffuse thickening (sclerosis) of the aortic valve cusps without reduced excursion. Tricuspid Valve Tricuspid valve is normal in structure and function. Mild-to- moderate tricuspid regurgitation. Right ventricular systolic pressure estimated to be elevated at 50 mmHg. Pulmonic Valve Pulmonic valve not well visualized, grossly normal. Pericardium No pericardial effusion. Great Vessels Normal size aortic root. CONCLUSIONS Normal left and right ventricular systolic function. Stage 3 diastolic dysfunction. Mild left atrial enlargement. Moderate Mitral and Mild Tricuspid Regurgitation with Moderate Pulmonary hypertension. Vimal Pratt M.D. (Electronically Signed) Final Date: 15 May 2017 20:39 MEASUREMENTS (Male / Female) Normal Values 2D ECHO LV Diastolic Diameter PLAX 4.1 cm 4.2 - 5.9 / 3.9 - 5.3 cm LV Systolic Diameter PLAX 2.7 cm 2.1 - 4.0 cm LV Fractional Shortening PLAX 34.1 % 25 - 46 % LV Ejection Fraction 2D Teich 63.6 % IVS Diastolic Thickness 1.0 cm LVPW Diastolic Thickness 1.1 cm LV Relative Wall Thickness 0.5 RV Internal Dim ED PLAX 2.5 cm 1.9 - 3.8 cm LVOT Diameter 1.8 cm Aortic Root Diameter 2.4 cm LA Systolic Diameter LX 4.3 cm 3.0 - 4.0 / 2.7 - 3.8 cm LA Volume 28.0 cm 18 - 58 / 22 - 52 cm Ascending Aorta Diameter 2.6 cm DOPPLER AV Peak Velocity 153.0 cm/s AV Peak Gradient 9.4 mmHg AV Mean Velocity 116.0 cm/s AV Mean Gradient 6.0 mmHg AV Velocity Time Integral 33.8 cm LVOT Peak Velocity 160.0 cm/s LVOT Peak Gradient 10.2 mmHg LVOT Mean Velocity 104.0 cm/s LVOT Mean Gradient 5.0 mmHg LVOT Velocity Time Integral 28.8 cm LVOT Stroke Volume 73.3 cm AV Area Cont Eq vti 2.2 cm AV Area Cont Eq pk 2.7 cm MV Peak Velocity 143.0 cm/s MV Peak Gradient 8.2 mmHg MV Mean Velocity 81.1 cm/s MV Mean Gradient 3.0 mmHg Mitral E Point Velocity 112.0 cm/s Mitral A Point Velocity 79.0 cm/s Mitral E to A Ratio 1.4 MV PHT Velocity 153.0 cm/s MV Deceleration Titus 640.0 cm/s MV Pressure Half Time 71.7 ms MV Area PHT 3.1 cm MV Deceleration Time 114.0 ms TR Peak Velocity 361.0 cm/s TR Peak Gradient 52.1 mmHg Right Atrial Pressure 5.0 mmHg Pulmonary Artery Systolic Pressu 57.1 mmHg Right Ventricular Systolic Press 57.1 mmHg PV Peak Velocity 106.0 cm/s PV Peak Gradient 4.5 mmHg PV Mean Velocity 70.1 cm/s PV Mean Gradient 2.0 mmHg PV Velocity Time Integral 22.2 cm LV E' Lateral Velocity 8.7 cm/s Mitral E to LV E' Lateral Ratio 12.9 LV E' Septal Velocity 9.7 cm/s Mitral E to LV E' Septal Ratio 11.6 Disposition Summary Disposition Principal Diagnosis: Sepsis 2/2 UTI Additional Diagnosis: DM Discharge Disposition: home or self care Discharge Instructions General Discharge Information Code Status: Full Code Patient's Diet: Diabetic Patient's Activity: As tolerated Follow-Up Instructions/Appts: Please follow up with your primary care physician in one week. Please follow up with your administrative support specialist in one week. Medications at Discharge Discharge Medications: Continue taking these medications: Atorvastatin Calcium (Atorvastatin Calcium) 20 MG TABLET 1 Tablet ORAL DAILY Qty = 90 Comments: Last Taken: 05/16/17 Time: 4:50 PM Lansoprazole (Lansoprazole) 30 MG CAPSULE.DR 1 Capsule ORAL DAILY Qty = 90 Comments: Last Taken: 05/17/17 Time: 6:45 AM Metoprolol Succinate (Metoprolol Succinate) 25 MG TAB 1 Tablet ORAL DAILY Qty = 180 Comments: Last Taken: 05/17/17 Time: 8:30 AM Fenofibrate Nanocrystallized (Fenofibrate) 145 MG TABLET 1 Tablet ORAL DAILY Qty = 90 Comments: Last Taken: 05/17/17 Time: 8:30 AM Sitagliptin Phosphate (Januvia) 100 MG TABLET 1 Tablet ORAL DAILY Qty = 90 Comments: Last Taken: NOT GIVEN IN HOSPITAL Time: Metformin HCl (Metformin HCl) 500 MG TABLET 1,000 Milligram ORAL TWICE DAILY Qty = 360 Comments: Last Taken: NOT GIVEN IN HOSPITAL Time: Hydrochlorothiazide (Hydrochlorothiazide) 25 MG TABLET 1 Tablet ORAL DAILY Qty = 90 Comments: Last Taken: NOT GIVEN IN HOSPITAL Time: Dextroamphetamine/Amphetamine (Dextroamp-Amphetamine 5 MG Tab) 5 MG TABLET 1 Tablet ORAL DAILY Qty = 180 Comments: Last Taken: NOT GIVEN IN HOSPITAL Time: Albuterol Sulfate (Proair Hfa) 90 MCG HFA.AER.AD 2 Puff Inhale through mouth EVERY 4-6 HOURS NEEDED as needed for ASTHMA Qty = 25 Comments: Last Taken: 05/16/17 Time: 8:30 PM Aspirin (Ecotrin*) 81 MG TABLET.DR 1 Tablet ORAL DAILY Comments: Last Taken: 05/17/17 Time: 8:30 AM Losartan (Cozaar) 100 MG TABLET 100 Milligram ORAL DAILY Comments: Last Taken: NOT GIVEN IN HOSPITAL Time: Glimepiride (Glimepiride) 2 MG TABLET 1 Tablet ORAL DAILY Comments: Last Taken: NOT GIVEN IN HOSPITAL Time: Buspirone HCl (Buspirone HCl) 10 MG TABLET 10 Milligram ORAL DAILY Comments: Last Taken: 05/17/17 Time: 8:30 AM Furosemide (Lasix) 20 MG TABLET 1 Tablet ORAL DAILY Qty = 30 Comments: Last Taken: NOT GIVEN IN HOSPITAL Time: Start taking the following new medications: Cephalexin (Keflex) 500 MG CAPSULE 1 Capsule ORAL TWICE DAILY Qty = 22 No Refills Instructions: take through 05/27/17 Comments: Last Taken: 05/17/17 Time: 12:30 PM Prednisone (Prednisone) 10 MG TABLET 1 Tablet ORAL DAILY Qty = 10 No Refills Instructions: Please take the medication as stated on discharge instructions Comments: Take 4 tabs for one day Take 3 tabs for 1 day Take 2 tabs for 1 day Take 1 tab for 1 day then stop Last Taken: 05/17/17 Time: 8:30 AM Copies To: CRISTOFER GRAY,ANDREW Min; JOSIAH GRAY,JENNIE Mccray Attending MD Review Statement Documenting Attending: JOEL BUSH M.D Other Findings: I have reviewed the discharge summaary.
--- NOTE | 2017-05-16 13:46 | PN- Cardiology ---
Subjective Subjective: Doing well. Improved appetite. No recurrent dyspnea. No chest pain. Objective Vital Signs and I&Os Vital Signs Date Time Temp Pulse Resp B/P B/P Pulse O2 O2 Flow FiO2 Mean Ox Delivery Rate 05/16 1037 73 148/74 05/16 0824 98.5 73 18 148/74 95 Room Air 05/16 0552 98.5 95 Room Air 05/16 0054 103.2 88 16 140/78 96 Nasal Cannula 05/16 0000 95 Nasal 2.0L Cannula 05/15 1927 100.7 05/15 1900 93 Room Air Room Air 05/15 1604 98.6 86 18 136/70 98 Room Air Intake & Output 05/16 1600 05/16 0800 05/16 0000 05/15 1600 05/15 0800 05/15 0000 Intake Total 260 240 480 240 400 Output Total 400 Balance -140 240 480 240 400 Intake, IV 20 Intake, Oral 240 240 480 240 400 Output, Urine 400 Patient 145 lb Weight Physical Exam: General: Answering questions appropriately. Eyes: No obvious scleral icterus. HEENT: No jugular venous distention or abnormal jugular venous pulsations. Cardiovascular: Normal intensity S1/S2. Regular. Respiratory: CTABL Abdomen: No guarding Musculoskeletal: No clubbing or cyanosis noted, no edema Skin: Warm Neurologic: No gross focal deficits noted. Current Medications: Current Medications Sig/Leslie Start time Last Medication Dose Route Stop Time Status Admin Acetaminophen 1,000 MG Q6P PRN 05/14 1100 AC 05/14 N/A 1 UNIT IV 1058 Acetaminophen/ 1 TAB Q6P PRN 05/14 0415 AC 05/15 Hydrocodone Bitart PO 1926 Albuterol Sulfate 3 ML Q4P PRN 05/14 1200 AC 05/15 INH 1243 Albuterol Sulfate 2 PUF Q4-6 PRN PRN 05/14 0415 AC 05/14 INH 1044 Aspirin Buffered 81 MG DAILY 05/14 1000 AC 05/16 PO 1037 Atorvastatin Calcium 20 MG 1700 05/14 1700 AC 05/15 PO 1749 Buspirone HCl 10 MG DAILY 05/14 1000 AC 05/16 PO 1037 Ceftriaxone Sodium 1,000 MG Q24H 05/15 0100 AC 05/16 IV 0047 Fenofibrate 145 MG DAILY 05/14 1000 AC 05/16 PO 1037 Heparin Sodium 5,000 UNIT Q8 05/14 0600 AC 05/16 (Porcine) SC 0704 Insulin Aspart 0 TIDAC/HS 05/14 2254 AC 05/16 SC 1244 Melatonin 3 MG AT BEDTIME PRN 05/16 0145 AC 05/16 PO 0136 Methylprednisolone 40 MG DAILY 05/16 1000 AC 05/16 IV 1037 Methylprednisolone 40 MG Q12 05/15 2200 DC 05/15 IV 2222 Metoprolol Succinate 25 MG DAILY 05/15 1000 AC 05/16 PO 1037 Morphine Sulfate 2 MG Q4P PRN 05/14 0415 AC IV Omeprazole 40 MG DAILY AC 05/14 0700 AC 05/16 PO 0701 Patient Medication 1 ED .STK-MED ONE 05/15 1356 MS Teaching ED 05/15 1357 Prochlorperazine 10 MG Q6P PRN 05/14 0700 AC IV Results Last 48 Hrs of Labs/Mics: Laboratory Tests 05/16/17 0535: Anion Gap 15, Estimated GFR 34 L, BUN/Creatinine Ratio 21.3, CBC w Diff NO MAN DIFF REQ, RBC 2.91 L, MCV 82.0, MCH 27.1, RDW 16.5 H, MPV 10.1, Gran % 88.5 H , Lymphocytes % 7.6 L, Monocytes % 3.6, Eosinophils % 0.1, Basophils % 0.2, Absolute Granulocytes 10.3 H, Absolute Lymphocytes 0.9 L, Absolute Monocytes 0.4, Absolute Eosinophils 0, Absolute Basophils 0, PUBS MCHC 33.1 05/15/17 0652: Anion Gap 13, Estimated GFR 32 L, BUN/Creatinine Ratio 21.9, CBC w Diff NO MAN DIFF REQ, RBC 2.89 L, MCV 82.7, MCH 27.1, RDW 16.7 H, MPV 9.9, Gran % 83.4 H, Lymphocytes % 11.5 L, Monocytes % 4.8, Eosinophils % 0.1, Basophils % 0.2, Absolute Granulocytes 8.4 H, Absolute Lymphocytes 1.2, Absolute Monocytes 0.5, Absolute Eosinophils 0, Absolute Basophils 0, PUBS MCHC 32.8 L 05/14/17 184: Troponin I 0.36 *H 05/14/171847: Lactic Acid 1.9 Recent Imaging Studies: Telemetry tracings were personally reviewed shows sinus rhythm Assessment/Plan Assessment/Plan 1. Urosepsis with fever 2. Renal insufficiency 3. Anemia 4. New left bundle-branch block 5. History of possible mild congestive heart failure, not currently decompensated 6. Asthma with bronchospasm 7. History of hypertension/hyperlipidemia/diabetes 8. Tachypnea, resolved 9. Demand ischemia 10. Diastolic dysfunction by Echo Status improved. Normal LV/RV function by Echo with diastolic dysfunction. Can resume outpatient Lasix when PO intake at baseline. Needs cardiology f/u within 1 week of discharge. Anemia management per medical team. No sustained events on telemetry. Please call with any questions/concerns. Jason Pollard MD [facility] Continue telemetry? No
[2017-05-16 16:46] VITALS: BP 152/74
[2017-05-16 22:00] VITALS: BP 132/76
[2017-05-17 07:56] LABS: ABSOLUTE BASOPHIL COUNT 0 /CUMM (0.0-0.2); ABSOLUTE EOSINOPHIL COUNT 0.1 /CUMM (0.0-0.7); ABSOLUTE GRANULOCYTE CT 7.4 /CUMM (1.4-6.5); ABSOLUTE LYMPH COUNT 2.3 /CUMM (1.2-3.4); ABSOLUTE MONOCYTE COUNT 0.5 /CUMM (0.10-0.60); BASOPHIL % 0.2 % (0.0-2.0); EOSINOPHIL % 0.7 % (0-5); GRANULOCYTE % 72.4 % (42.2-75.2); HEMATOCRIT 24.6 % (37-47); MEAN CORPUSCULAR HGB CONC 32.9 G/DL (33.0-37.0); MEAN CORPUSCULAR VOLUME 82.2 FL (81.0-99.0); MEAN PLATELET VOLUME 9.6 FL (7.4-10.4); PLATELET COUNT 284 /CUMM (130-400); RBC DISTRIBUTION WIDTH 16.4 % (11.5-14.5); WHITE BLOOD CELL COUNT 10.2 /CUMM (4.8-10.8)
[2017-05-17 08:46] VITALS: BP 130/62
[2017-05-17 09:04] VITALS: BP 132/66
[2017-05-17] MEDS ORDERED: KEFLEX500 M1 PO (10:14)
[2017-05-17] MEDS ORDERED: PREDNISONE10 M2 PO (10:14)
--- NOTE | 2017-05-17 11:43 | PN- Housestaff ---
SAÚL FOWLER 05/17/17 1126: Subjective Follow-up For: Urosepsis Asthma exacerbation Subjective: This morning patient is alert, awake and oriented. Her vitals are stable. She is still complaining of cough and chest pain due to persistent coughing. No phlegm. No burning micturition but reports urinary frequency, better than it was before. Review of Systems Constitutional: Reports: see HPI. Objective Last 24 Hrs of Vital Signs/I&O Vital Signs Date Time Temp Pulse Resp B/P B/P Pulse O2 O2 Flow FiO2 Mean Ox Delivery Rate 05/17 1116 92 Room Air Room Air 05/17 0904 97.8 66 18 132/66 95 Room Air 05/17 0846 130/62 05/17 0827 76 130/62 05/17 0800 Room Air 05/16 2200 97.9 77 22 132/76 96 Room Air 05/16 1900 96 Room Air Room Air 05/16 1646 97.6 70 20 152/74 97 Room Air Intake & Output 05/17 1600 05/17 0800 05/17 0000 Intake Total 340 550 Output Total Balance 340 550 Intake, IV 0 0 Intake, Oral 340 550 Number 0 0 Bowel Movements Physical Exam General Appearance: Alert, Oriented X3, Cooperative, No Acute Distress Neck: Supple Cardiovascular: Regular Rate, No Murmurs Lungs: Clear to Auscultation Abdomen: Normal Bowel Sounds, Soft, No Tenderness Neurological: Normal Speech, Strength at 5/5 X4 Ext, Sensation Intact, Cranial Nerves 3-12 NL Extremities: No Edema Current Medications: Current Medications Sig/Leslie Start time Last Medication Dose Route Stop Time Status Admin Acetaminophen 1,000 MG Q6P PRN 05/14 1100 AC 05/14 N/A 1 UNIT IV 1058 Acetaminophen/ 1 TAB Q6P PRN 05/14 0415 AC 05/15 Hydrocodone Bitart PO 1926 Albuterol Sulfate 3 ML Q4P PRN 05/14 1200 AC 05/16 INH 2036 Albuterol Sulfate 2 PUF Q4-6 PRN PRN 05/14 0415 AC 05/14 INH 1044 Aspirin Buffered 81 MG DAILY 05/14 1000 AC 05/17 PO 0826 Atorvastatin Calcium 20 MG 1700 05/14 1700 AC 05/16 PO 1650 Buspirone HCl 10 MG DAILY 05/14 1000 AC 05/17 PO 0826 Ceftriaxone Sodium 1,000 MG Q24H 05/15 0100 DC 05/17 IV 0027 Cephalexin 250 MG Q8 05/17 1400 AC PO Fenofibrate 145 MG DAILY 05/14 1000 AC 05/17 PO 0827 Heparin Sodium 5,000 UNIT Q8 05/14 0600 AC 05/17 (Porcine) SC 0645 Insulin Aspart 7 UNITS ONCE ONE 05/16 1830 DC 05/16 ID 05/16 1831 1823 Insulin Aspart 0 TIDAC/HS 05/14 2254 AC 05/17 SC 0827 Insulin Detemir 10 UNITS BID 05/16 2200 AC 05/17 SC 0826 Melatonin 3 MG AT BEDTIME PRN 05/16 0145 DC 05/16 PO 0136 Methylprednisolone 40 MG DAILY 05/16 1000 DC 05/16 IV 1037 Metoprolol Succinate 25 MG DAILY 05/15 1000 AC 05/17 PO 0827 Morphine Sulfate 2 MG Q4P PRN 05/14 0415 AC IV Omeprazole 40 MG DAILY AC 05/14 0700 AC 05/17 PO 0645 Prednisone 50 MG DAILY 05/17 1000 AC 05/17 PO 0826 Prochlorperazine 10 MG Q6P PRN 05/14 0700 AC IV Ramelteon 8 MG AT BEDTIME 05/17 0115 AC 05/17 PO 0123 Last 24 Hrs of Lab/Gutierrez Results Last 24 Hrs of Labs/Mics: Laboratory Tests 05/17/17 0649: Anion Gap 15, Estimated GFR 37 L, BUN/Creatinine Ratio 27.9 H, CBC w Diff NO MAN DIFF REQ, RBC 3.00 L, MCV 82.2, MCH 27.0, RDW 16.4 H, MPV 9.6, Gran % 72.4 , Lymphocytes % 22.2, Monocytes % 4.5, Eosinophils % 0.7, Basophils % 0.2, Absolute Granulocytes 7.4 H, Absolute Lymphocytes 2.3, Absolute Monocytes 0.5, Absolute Eosinophils 0.1, Absolute Basophils 0, PUBS MCHC 32.9 L Assessment/Plan Assessment: This is a 72-year-old female with a past medical history of asthma, diabetes mellitus, possible mild congestive heart failure (on daily low-dose Lasix), anemia, hypertension, hyperlipidemia, and non-alcoholic cirrhosis. Problem list 1. Urosepsis. Urine cultures and blood cultures growing Escherichia coli. On IV ceftriaxone. No fevers overnight and WBC count is normal 2. New left bundle branch block and elevated troponins. Most likely demand ischemia per cardio. Normal LV/RV function by Echo with stage III diastolic dysfunction. 3. Asthma exacerbation. On prednisone taper 4. Acute kidney injury on CKD. Baseline creatinine 1.2. Creatinine today is 1.4 5. Chronic anemia. Stable PLAN * Monitor vitals * Keep oxygen saturation more than 92% * Continue TRC nebs * Continue prednisone taper * F/U with her ethologist Dr. Yovany Nicole after discharge * Continue holding Lasix, hydrochlorothiazide and losartan * tessalon caps for cough * Started her on Keflex 250 mg every 8 hours. Complete course of total of 14 days * Continue all other home medications * Subcutaneous heparin for DVT prophylaxis * Diabetic diet * Full code Problem List: 1. UTI (urinary tract infection) Pain Ratin Pain Location: none Pain Goal: Pain 4 or less Pain Plan: tylenol Tomorrow's Labs & Rationales: bep, cbc DVT/Prophylaxis: pharmacological JOEL BUSH MD 05/17/17 1205: Attending MD Review Statement Attending Statement Attending MD Statement: examined this patient, discuss w/resident/PA/WATERSHED TENDER, agreed w/resident/PA/WATERSHED TENDER, discussed with family, reviewed EMR data (avail), discussed with nursing, discussed with case mgmt, amended to note Attending Assessment/Plan: Patient seen and examined. Resting comfortably and not in any distress. She has remained afebrile and hemodynamically stable. She offers no complaints today. She is maintaining her saturation on room air. On examination she has good entry bilaterally lungs are clear. She is medically stable to be discharged home today. She will be discharged to complete a total of 14 days of antibiotic therapy. She has been advised to follow-up with her primary care provider as an outpatient for repeat blood cultures and monitoring. No further workup is recommended by the cardiology service at present.
== END 2017-05-17 12:55 | DRG 872 ==
LOC: ERH 23:34 → 1NO 05-14 01:09 → ERHI 05-14 01:09 → 2NB 05-14 05:22 → ENRESERV 05-14 05:49 → ERHI 05-14 05:50 → EDBEDREQ 05-14 08:55 → ENRESERV 05-14 20:38 → ENTRNSPT 05-14 21:27 → 1NO 05-14 21:55 → CMPTRNSPT 05-14 22:07 → 1NO 05-15 07:45 → ENPENDDIS 05-17 09:43 → 1NO 05-17 12:55
PROVIDERS: Internal Medicine Hematology & Oncology; Internal Medicine Infectious Disease; Physician Assistant Medical; ADMIT Internal Medicine
DX: A41.9 Sepsis, unspecified organism (principal); E87.2 Acidosis; I24.8 Other forms of acute ischemic heart disease; J45.901 Unspecified asthma with (acute) exacerbation; I13.10 Hypertensive heart and chronic kidney disease without heart failure, with stage 1 through stage 4 chronic kidney disease, or unspecified chronic kidney disease; E11.22 Type 2 diabetes mellitus with diabetic chronic kidney disease; N39.0 Urinary tract infection, site not specified; K74.69 Other cirrhosis of liver; I44.7 Left bundle-branch block, unspecified; D64.9 Anemia, unspecified; E78.5 Hyperlipidemia, unspecified; K74.60 Unspecified cirrhosis of liver; N18.3 Chronic kidney disease, stage 3 (moderate)
CPT/HCPCS: 1NSP; 36415; 81001; 82436; 87040; 87070; 87086; 87449; 87450; 87804; 87804-59; 93005; 93010; 93306; 96361; 96374; 96375; 99291; J0131; J0696; J0780; J1644; J1815; J1940; J2920; J2930; J3490

== ENCOUNTER 2017-11-30 23:35 | Inpatient (IN) | payer OTHER ==
[~2017-11-30] VITALS: Ht 152.4 cm; Wt 65.8 kg
[~2017-11-30 23:35] MED LIST changes: +KEFLEX500 M1 PO; +PREDNISONE10 M2 PO
--- NOTE | 2017-11-30 23:39 | ED GI/GU/ABDOMINAL COMPLAINT ---
History of Present Illness General Chief Complaint: Nausea, Vomiting, Diarrhea Stated Complaint: BIBA VOMITING Source: patient, family, EMS Exam Limitations: clinical condition Vital Signs & Intake/Output Vital Signs & Intake/Output Vital Signs Date Time Temp Pulse Resp B/P B/P Pulse O2 O2 Flow FiO2 Mean Ox Delivery Rate 12/01 0124 100.9 113 16 159/70 93 Room Air 12/01 0047 100.7 11/303 101.5 11/30 2344 95 Room Air 11/30 2343 101.5 118 20 174/82 95 Room Air Room Air ED Intake and Output 12/01 0000 11/30 1200 Intake Total Output Total Balance Patient 115 lb Weight Allergies Coded Allergies: NO KNOWN ALLERGIES (12/29/16) Reconcile Medications Albuterol Sulfate (Proair Hfa) 90 MCG HFA.AER.AD 2 PUF INH Q4-6 PRN PRN ASTHMA (Reported) Aspirin (Ecotrin*) 81 MG TABLET.DR 1 TAB PO DAILY HEART (Reported) Atorvastatin Calcium 20 MG TABLET 1 TAB PO DAILY CHOL (Reported) Buspirone HCl 10 MG TABLET 10 MG PO DAILY ANXIETY (Reported) Dextroamphetamine/Amphetamine (Dextroamp-Amphetamine 5 MG Tab) 5 MG TABLET 1 TAB PO DAILY ADHD (Reported) Fenofibrate Nanocrystallized (Fenofibrate) 145 MG TABLET 1 TAB PO DAILY cholestrol (Reported) Furosemide (Lasix) 20 MG TABLET 1 TAB PO DAILY CHF Glimepiride 2 MG TABLET 1 TAB PO DAILY DM (Reported) Hydrochlorothiazide 25 MG TABLET 1 TAB PO DAILY HTN (Reported) Lansoprazole 30 MG CAPSULE.DR 1 CAP PO DAILY GERD (Reported) Losartan (Cozaar) 100 MG TABLET 100 MG PO DAILY HTN (Reported) Metformin HCl 500 MG TABLET 1,000 MG PO BID DM (Reported) Metoprolol Succinate 25 MG TAB 1 TAB PO DAILY HTN (Reported) Sitagliptin Phosphate (Januvia) 100 MG TABLET 1 TAB PO DAILY DM (Reported) Triage Nurses Notes Reviewed? yes ? n Is pt currently ? No Onset: Gradual Duration: hour(s): Timing: recent history Quality/Severity: vomiting Location: generalized abdomen Radiation: no radiation Activities at Onset: none Prior Abdominal Problems: none Modifying Factors: Worsens With: defecating, vomiting. Associated Symptoms: abdominal pain, diarrhea, nausea/vomiting HPI: 72 yo woman presents with weakness, nausea, vomiting, diarrhea for the past 3-4 hours. She called 911 at approximately 8pm due to her sugar being in the 200's. At that time, she elected to stay home. Since then, she has vomited several times with several episodes of diarrhea. Her notes, "She had an accident on herself... She had a bowel movement, stood up, and then passed out briefly... I couldn't pick her up.... She also vomited once and then passed out again." She notes a fever as well, without coughing, phlegm, dysuria. She is otherwise well. Past History Travel History Traveled to [place] past 21 day No Medical History Any Pertinent Medical History? see below for history Neurological: NONE EENT: NONE Cardiovascular: HTN,CHOL Respiratory: asthma Gastrointestinal: NONE Hepatic: NONE Renal: NONE Musculoskeletal: NONE Psychiatric: NONE Endocrine: DM Blood Disorders: NONE Cancer(s): NONE INSURANCE PROCESSOR/Reproductive: NONE History of MRSA: No History of VRE: No History of CDIFF: No Surgical History Surgical History: non-contributory Psychosocial History Who do you live with Spouse Services at Home Oxygen What is your primary language Swedish Family History Family History, If Any: FATHER, ; Cause: Myocardial infarct. MOTHER, ; Cause: Dementia. Hx Contributory? No Review of Systems Review of Systems Constitutional: Reports: no symptoms. EENTM: Reports: no symptoms. Respiratory: Reports: no symptoms. Cardiovascular: Reports: no symptoms. GI: Reports: no symptoms. Genitourinary: Reports: no symptoms. Musculoskeletal: Reports: no symptoms. Skin: Reports: no symptoms. Neurological/Psychological: Reports: no symptoms. Hematologic/Endocrine: Reports: no symptoms. Immunologic/Allergic: Reports: no symptoms. All Other Systems: Reviewed and Negative Physical Exam Physical Exam General Appearance: well developed/nourished, moderate distress Head: atraumatic, normal appearance Eyes: Bilateral: normal appearance. Ears, Nose, Throat, Mouth: hearing grossly normal, dry mucosa Neck: normal inspection, supple, full range of motion Respiratory: normal breath sounds, chest non-tender, no respiratory distress, quiet respiration, lungs clear Cardiovascular: regular rate/rhythm Gastrointestinal: normal bowel sounds, soft, non-tender, no tenderness to deep palpation Back: normal inspection Extremities: normal range of motion Neurologic/Psych: no motor/sensory deficits, awake, lethargic Skin: mottled, cool extremities Core Measures ACS in differential dx? No Sepsis Present: Yes Sepsis Focused Exam Completed? Yes Progress Differential Diagnosis: viral gastro, renal failure, dehydration, influenza vs other. Plan of Care: Orders Procedure Date/time Status CBC WITHOUT DIFFERENTIAL 12/02 06 Active BASIC ELECTROLYTES PLUS BUN&CR 12/02 0600 Active Clear Liquid Diet 12/01 B Active LACTIC ACID 12/01 0600 Active Patient Data 12/01 0344 Active Pathway - chart 12/01 0311 Active House Staff 12/01 0311 Active LOWER RESPIRATORY CULTURE 12/01 0311 Active Add-on Test (ER Only) 12/01 0308 Active CULTURE,STOOL 12/01 0308 Active C.DIFFICILE 12/01 0308 Active LACTIC ACID 12/01 0240 Complete Misc Message 12/01 0226 Active ED Holding Orders 12/01 0226 Active Admit to inpatient 12/01 0226 Active Code Status 12/01 0226 Active Patient Data 12/01 0225 Active BLOOD CULTURE 12/01 0200 Active Add-on Test (ER Only) 12/01 0159 Active BLOOD CULTURE 12/01 0159 Active Intake & Output 12/01 0128 Active GLYCOSYLATED HGB 12/01 0040 Active EKG 12/01 0030 Active Lab Add-on Test 12/01 UNK Active VTE Mechanical Prophylaxis 12/01 UNK Active Vital Signs 12/01 UNK Active MISTAKE 12/01 UNK Active Telemetry/Poke In 12/01 UNK Active Intake & Output 12/01 UNK Active Activity/Ambulation 12/01 UNK Active FingerStick- Glucose 11/30 2342 Active RAPID VIRAL INFLUENZA A 11/30 2340 Complete CULTURE,URINE 11/30 2340 Active URINALYSIS 11/30 2340 Complete LACTIC ACID 11/30 2340 Complete TROPONIN LEVEL 11/30 2339 Active LIPASE 11/30 2339 Active HEPATIC FUNCTION PANEL 11/30 2339 Active CBC WITHOUT DIFFERENTIAL 11/30 2339 Complete BASIC METABOLIC PANEL 11/30 2339 Active AMYLASE 11/30 2339 Active EKG 11/30 2339 Active Current Medications Sig/Leslie Start time Last Medication Dose Stop Time Status Admin Aspirin Buffered 81 MG DAILY 12/01 1000 UNVr (Ecotrin) Sodium Chloride 1,000 ML .Q10H 12/01 0315 AC 12/01 (Normal Saline 0.9%) 0330 Laboratory Tests 12/01/17 0257: Lactic Acid 2.3 H 12/01/17 0040: Anion Gap 13, Estimated GFR 44 L, BUN/Creatinine Ratio 24.2, Glucose 293 H, Hemoglobin A1c Pending, Calcium 8.0 L, Total Bilirubin 0.3, Direct Bilirubin 0.2, AST 40 H, ALT 34, Alkaline Phosphatase 30, Troponin I < 0.01, Total Protein 6.2 L, Albumin 3.5, Amylase 76, Lipase 382 H 12/01/17 0007: Urinalysis MOD H, Urine Color YEL, Urine Clarity CLEAR, Urine pH 6.0, Ur Specific [place] 1.015, Urine Protein TRACE H, Urine Ketones NEG, Urine Nitrite NEG, Urine Bilirubin NEG, Urine Urobilinogen 0.2, Ur Leukocyte Esterase NEG, Ur Microscopic SEDIMENT EXAMINED, Urine RBC RARE, Urine WBC RARE, Ur Epithelial Cells FEW, Urine Mucus MOD H, Urine Hemoglobin NEG, Urine Glucose >=1000 H 11/30/17 2355: Lactic Acid 3.3 H, CBC w Diff MAN DIFF ORDERED, RBC 4.07 L, MCV 89.6, MCH 30.1 , RDW 12.9, MPV 8.8, Gran % 95.5 H, Lymphocytes % 2.1 L, Monocytes % 2.1, Eosinophils % 0.3, Basophils % 0, Absolute Granulocytes 10.2 H, Segmented Neutrophils 87 H, Band Neutrophils 7 H, Absolute Lymphocytes 0.2 L, Lymphocytes 3 L, Monocytes 3, Absolute Monocytes 0.2, Absolute Eosinophils 0, Absolute Basophils 0, Platelet Estimate ADEQUATE, Normocytic RBCs VERIFIED, Normochromic RBCs VERIFIED, PUBS MCHC 33.6 Microbiology 12/01 310 LOWER RESP: Respiratory Culture - ORD 12/01 310 LOWER RESP: Gram Stain - ORD 12/01 309 STOOL: Clostridium difficile Toxin A & B - RECD 12/01 031 STOOL: Stool Culture - RECD 12/01 0200 BLOOD: Blood Culture - RECD 12/01 0145 BLOOD: Blood Culture - RECD 11/30 235 NASOPHARYN: Influenza Virus A & B Rapid Smear - COMP 11/30 2340 URINE ROUT: Urine Culture - RECD Diagnostic Imaging: Viewed by Me: Radiology Read. Discussed w/RAD: Radiology Read. Radiology Impression: abd/pelvic ct... patchy opacity in lung bases PATIENT: HEISNATHAN HARTLEY PRESENT AGE: 72 PATIENT ACCOUNT NO: [id number] : 45 LOCATION: [facility] ORDERING PHYSICIAN: Bob Guerrero MD SERVICE DATE: 12/01/17 EXAM TYPE: CAT - CT ABD & PELVIS W/ O IV CONTRAS EXAMINATION: CT ABDOMEN AND PELVIS WITHOUT CONTRAST CLINICAL INFORMATION: Diarrhea. COMPARISON: CT abdomen and pelvis dated 05/25/2008. TECHNIQUE: Multidetector volumetric imaging was performed from the superior aspect of the liver through the pubic symphysis. Sagittal and coronal reformatted images were obtained on the technologist's workstation. DLP: 296 mGy -cm FINDINGS: LUNG BASES: There are patchy nonspecific areas of groundglass opacity within the lung bases. A moderate sized hiatal hernia is noted, slightly enlarged from 2007. Fluid is evident within the distal thoracic esophagus. LIVER , GALLBLADDER, AND BILIARY TREE: The liver is mildly enlarged measuring 20 cm craniocaudally. Liver is otherwise normal in attenuation without biliary ductal dilatation or mass evident on this unenhanced scan. Cholelithiasis is noted without CT evidence of acute cholecystitis. PANCREAS: Unremarkable. SPLEEN: Unremarkable. ADRENAL GLANDS: Unremarkable. KIDNEYS AND URETERS: The kidneys are normal in size, shape, and attenuation. No hydronephrosis, hydroureter, or calculi seen. No perinephric stranding. BLADDER: Unremarkable. GASTROINTESTINAL TRACT: The small and large bowel are unremarkable. The appendix is not definitively identified but there is no focal right lower quadrant inflammatory stranding. ABDOMINAL WALL: No significant hernia is appreciated. LYMPH NODES: Normal. VASCULAR: There are scattered atherosclerotic vascular calcifications without abdominal aortic aneurysm. PELVIC VISCERA: Unremarkable. OSSEOUS STRUCTURES: Unremarkable. IMPRESSION: 1. Minimal patchy nonspecific ground glass opacity within the lung bases, suspicious for infectious process in the appropriate clinical setting. 2. Mild nonspecific hepatomegaly. DICTATED BY: Juvenal Álvarez MD DATE/TIME DICTATED:12/01/17310 LAUNCHMAN:SOFÍA DATE/TIME TRANSCRIBED:12/01/17310 CONFIDENTIAL, DO NOT COPY WITHOUT APPROPRIATE AUTHORIZATION. <Electronically signed in Other Vendor System> SIGNED BY: Juvenal Álvarez MD 12/01/17 0326 CXR Impression: LEFT INFILTRATE PATIENT: NATHAN TIDWELL PRESENT AGE: 72 PATIENT ACCOUNT NO: [id number] : 45 LOCATION: [facility] ORDERING PHYSICIAN: Bob Guerrero MD SERVICE DATE: 11/30/17 EXAM TYPE: RAD - XRY-PORTABLE CHEST XRAY EXAMINATION: XR PORTABLE CHEST CLINICAL INFORMATION: Fever. COMPARISON: Chest radiographs dated 05/13/2017. TECHNIQUE: Portable frontal view of the chest was obtained. FINDINGS: The lungs are mildly hypoexpanded. There is streaky lingular opacity partially silhouetting the left heart border. No pleural effusion. No pneumothorax. The cardiac silhouette is borderline prominent. No acute osseous abnormalities. IMPRESSION: 1. Streaky basilar opacity silhouetting the left heart border suspicious for early infiltrate in the setting of fever. 2. Borderline prominent cardiac silhouette. Recommend correlation with recent echocardiograms if available. 3. Hypoexpanded lungs. DICTATED BY: Juvenal Álvarez MD DATE/TIME DICTATED:12/01/1722 LAUNCHMAN:SOFÍA DATE/TIME TRANSCRIBED:12/01/1722 CONFIDENTIAL, DO NOT COPY WITHOUT APPROPRIATE AUTHORIZATION. <Electronically signed in Other Vendor System> SIGNED BY: Juvenal Álvarez MD 12/01/1730 Initial ED EKG: LBBB, SINUS TACH... COMPUTER READS "ACUTE mi"... PRIOR EKG LBBB... SEE MY NOTE BELOW. Repeat EKG: changed (inc lbbb, no acute changes) Departure Departure Time of Disposition: 224 Disposition: STILL A PATIENT Condition: Stable Clinical Impression Primary Impression: Sepsis Secondary Impressions: Diarrhea, Lactic acidosis, Nausea and vomiting, Pneumonia Referrals: Madison GRAY,Umu Min (PCP/Family) Departure Forms: Customer Survey General Discharge Information Comments 11/30/17, 23:58... Pt with ekg with LBBB, computer reads as "acute [place]" however, prior ekg was lbbb. Pt has no chest pain.... will give fluid bolus, and repeat ekg. 12/01/17, 0:32AM... repeat ekg, incomplete lbbb without acute changes Admission Note Spoke With: Frankie GRAY,Luis Alfredo Documentation of Exam: Documentation of any treatments & extenuating circumstances including Concerns Regarding Discharge (functional status, medication knowledge or non-compliance, living conditions, etc.) that warrant an admission rather than observation: pt with several issues: diarrhea, nausea and vomiting, with fever, also with evidence of pneumonia on cxr. lactic acidosis... pt merits admission for iv fluids, iv abx, electrolyte support. Critical Care Note Critical Care Note Critical Care Time: 30-74 min
[2017-12-01 00:05] LABS: ABSOLUTE BASOPHIL COUNT 0 /CUMM (0.0-0.2); ABSOLUTE EOSINOPHIL COUNT 0 /CUMM (0.0-0.7); ABSOLUTE GRANULOCYTE CT 10.2 /CUMM (1.4-6.5); ABSOLUTE LYMPH COUNT 0.2 /CUMM (1.2-3.4); ABSOLUTE MONOCYTE COUNT 0.2 /CUMM (0.10-0.60); BASOPHIL % 0 % (0.0-2.0); EOSINOPHIL % 0.3 % (0-5); GRANULOCYTE % 95.5 % (42.2-75.2); HEMATOCRIT 36.5 % (37-47); MEAN CORPUSCULAR HGB 30.1 PG (27.0-31.0); MEAN CORPUSCULAR HGB CONC 33.6 G/DL (33.0-37.0); MEAN CORPUSCULAR VOLUME 89.6 FL (81.0-99.0); MEAN PLATELET VOLUME 8.8 FL (7.4-10.4); PLATELET COUNT 298 /CUMM (130-400); RBC DISTRIBUTION WIDTH 12.9 % (11.5-14.5); RED BLOOD CELL CT 4.07 /CUMM (4.20-5.40); WHITE BLOOD CELL COUNT 10.6 /CUMM (4.8-10.8)
--- NOTE | 2017-12-01 00:31 | RADIOLOGY REPORT ---
EXAMINATION: XR PORTABLE CHEST CLINICAL INFORMATION: Fever. COMPARISON: Chest radiographs dated 05/13/2017. TECHNIQUE: Portable frontal view of the chest was obtained. FINDINGS: The lungs are mildly hypoexpanded. There is streaky lingular opacity partially silhouetting the left heart border. No pleural effusion. No pneumothorax. The cardiac silhouette is borderline prominent. No acute osseous abnormalities. IMPRESSION: 1. Streaky basilar opacity silhouetting the left heart border suspicious for early infiltrate in the setting of fever. 2. Borderline prominent cardiac silhouette. Recommend correlation with recent echocardiograms if available. 3. Hypoexpanded lungs.
--- NOTE | 2017-12-01 02:39 | History & Physical ---
[facility] 0239: General Information and HPI MD Statement: I have seen and personally examined NATHAN ESCALANTE and documented this H&P. The patient is a 72 year old F who presented with a patient stated chief complaint of [diarrhea, vomiting, syncope]. Source of Information: patient, family Exam Limitations: no limitations History of Present Illness: 72-year-old female with past medical history of asthma, ADHD, hypertension, stage III diastolic failure, diabetes, history of renal stones, anemia [had iron infusions], urinary tract infection [May 2017], cirrhosis came to [facility] with complaints of nausea, vomiting, weakness, diarrhea and 2 episodes of syncopal episodes. Apparently patient was in her usual state of health until 7 PM yesterday, following which she developed weakness, dizziness, lightheadedness followed by an episode of loss of consciousness briefly for 2 seconds. No history of any accidents, seizure then. 911 was called immediately. They measured her vitals and blood sugar which was around 240. EMS suggested ER visit but patient refused. She went to use the bathroom had one episode of vomiting and diarrhea with no blood.Patient had another episode of loss of consciousness briefly for 2-3 seconds. Patient felt hot. Patient tried to rest in her couch and felt very weak. Her immediately called 911 and was brought to [facility]. She denies chest pain, chest pressure, abdominal pain, abdominal cramps, dysuria, hematuria, similar episodes in the past few weeks, recent antibiotic use, travel history, contacts with sick people, seizures, altered mental status, altered sensation, weakness in the past. Allergies/Medications Allergies: Coded Allergies: NO KNOWN ALLERGIES (12/29/16) Home Med list Albuterol Sulfate (Proair Hfa) 90 MCG HFA.AER.AD 2 PUF INH Q4-6 PRN PRN ASTHMA (Reported) Aspirin (Ecotrin*) 81 MG TABLET.DR 1 TAB PO DAILY HEART (Reported) Atorvastatin Calcium 20 MG TABLET 1 TAB PO DAILY CHOL (Reported) Buspirone HCl 10 MG TABLET 10 MG PO DAILY ANXIETY (Reported) Dextroamphetamine/Amphetamine (Dextroamp-Amphetamine 5 MG Tab) 5 MG TABLET 1 TAB PO DAILY ADHD (Reported) Fenofibrate Nanocrystallized (Fenofibrate) 145 MG TABLET 1 TAB PO DAILY cholestrol (Reported) Furosemide (Lasix) 20 MG TABLET 1 TAB PO DAILY CHF Glimepiride 2 MG TABLET 1 TAB PO DAILY DM (Reported) Hydrochlorothiazide 25 MG TABLET 1 TAB PO DAILY HTN (Reported) Lansoprazole 30 MG CAPSULE.DR 1 CAP PO DAILY GERD (Reported) Losartan (Cozaar) 100 MG TABLET 100 MG PO DAILY HTN (Reported) Metformin HCl 500 MG TABLET 1,000 MG PO BID DM (Reported) Metoprolol Succinate 25 MG TAB 1 TAB PO DAILY HTN (Reported) Sitagliptin Phosphate (Januvia) 100 MG TABLET 1 TAB PO DAILY DM (Reported) Compliance With Home Meds: GOOD Past History Travel History Traveled to [place] past 21 day No Medical History Neurological: NONE EENT: NONE Cardiovascular: HTN,CHOL Respiratory: asthma Gastrointestinal: NONE Hepatic: NONE Renal: NONE Musculoskeletal: NONE Psychiatric: NONE Endocrine: DM Blood Disorders: NONE Cancer(s): NONE EPIC DIRECTOR/Reproductive: NONE History of MRSA: No History of VRE: No History of CDIFF: No Surgical History Surgical History: non-contributory ECHO Results (as available) EF% 65 Past Family/Social History Family History Relations & Conditions if any FATHER, ; Cause: Myocardial infarct. MOTHER, ; Cause: Dementia. Psychosocial History Where do you live? Home Who Do You Live With? spouse Services at Home: Oxygen Primary Language: Tamazight Smoking Status: Never Smoked ETOH Use: occasional use Illicit Drug Use: denies illicit drug use Functional Ability ADLs Independent: dressing, eating, toileting, bathing. Ambulation: independent IADLs Independent: shopping, housework, finances, food prep, telephone, transportation , medication admin. Review of Systems Review of Systems Constitutional: Reports: weakness. EENTM: Reports: no symptoms. Cardiovascular: Reports: no symptoms. Respiratory: Reports: no symptoms. GI: Reports: diarrhea, nausea, vomiting. Genitourinary: Reports: no symptoms. Musculoskeletal: Reports: no symptoms. Skin: Reports: no symptoms. Neurological/Psychological: Reports: no symptoms. Hematologic/Endocrine: Reports: no symptoms. Exam & Diagnostic Data Last 24 Hrs of Vital Signs/I&O Vital Signs Date Time Temp Pulse Resp B/P B/P Pulse O2 O2 Flow FiO2 Mean Ox Delivery Rate 12/01 0424 99.9 110 16 152/70 93 Room Air 12/01 0124 100.9 113 16 159/70 93 Room Air 12/01 0047 100.7 11/30 2353 101.5 11/30 2344 95 Room Air 11/30 2343 101.5 118 20 174/82 95 Room Air Room Air Intake & Output 12/01 0800 12/01 0000 11/30 1600 Intake Total 3000 Output Total 500 Balance 2500 Intake, IV 3000 Output, Stool 500 Patient 115 lb Weight Physical Exam General Appearance Alert, Oriented X3, Cooperative, Mild Distress Skin Temp/Moisture Exam: Warm/Dry HEENT Atraumatic, PERRLA Neck Supple, No JVD, No thryomegaly Cardiovascular Regular Rate, Normal S1, Normal S2, No Murmurs Lungs Normal Air Movement Abdomen Normal Bowel Sounds, Soft, No Tenderness, No Hepatospenomegaly Neurological Normal Speech, Strength at 5/5 X4 Ext, Normal Tone, Sensation Intact Extremities No Edema Last 24 Hrs of Labs/Gutierrez: Laboratory Tests 12/01/17 0257: Lactic Acid 2.3 H 12/01/17 0040: Anion Gap 13, Estimated GFR 44 L, BUN/Creatinine Ratio 24.2, Glucose 293 H, Hemoglobin A1c Pending, Calcium 8.0 L, Total Bilirubin 0.3, Direct Bilirubin 0.2, AST 40 H, ALT 34, Alkaline Phosphatase 30, Troponin I < 0.01, Total Protein 6.2 L, Albumin 3.5, Amylase 76, Lipase 382 H 12/01/17 0007: Urinalysis MOD H, Urine Color YEL, Urine Clarity CLEAR, Urine pH 6.0, Ur Specific [place] 1.015, Urine Protein TRACE H, Urine Ketones NEG, Urine Nitrite NEG, Urine Bilirubin NEG, Urine Urobilinogen 0.2, Ur Leukocyte Esterase NEG, Ur Microscopic SEDIMENT EXAMINED, Urine RBC RARE, Urine WBC RARE, Ur Epithelial Cells FEW, Urine Mucus MOD H, Urine Hemoglobin NEG, Urine Glucose >=1000 H 11/30/17 2355: Lactic Acid 3.3 H, CBC w Diff MAN DIFF ORDERED, RBC 4.07 L, MCV 89.6, MCH 30.1 , RDW 12.9, MPV 8.8, Gran % 95.5 H, Lymphocytes % 2.1 L, Monocytes % 2.1, Eosinophils % 0.3, Basophils % 0, Absolute Granulocytes 10.2 H, Segmented Neutrophils 87 H, Band Neutrophils 7 H, Absolute Lymphocytes 0.2 L, Lymphocytes 3 L, Monocytes 3, Absolute Monocytes 0.2, Absolute Eosinophils 0, Absolute Basophils 0, Platelet Estimate ADEQUATE, Normocytic RBCs VERIFIED, Normochromic RBCs VERIFIED, PUBS MCHC 33.6 Microbiology 12/01 310 LOWER RESP: Respiratory Culture - ORD 12/01 310 LOWER RESP: Gram Stain - ORD 12/01 309 STOOL: Clostridium difficile Toxin A & B - RECD 12/01 031 STOOL: Stool Culture - RECD 12/01 0200 BLOOD: Blood Culture - RECD 12/01 0145 BLOOD: Blood Culture - RECD 11/30 2355 NASOPHARYN: Influenza Virus A & B Rapid Smear - COMP 11/30 2340 URINE ROUT: Urine Culture - RECD Diagnostic Data EKG Results Sinus rhythm, incomplete left bundle branch block. CXR Results MPRESSION: 1. Streaky basilar opacity silhouetting the left heart border suspicious for early infiltrate in the setting of fever. 2. Borderline prominent cardiac silhouette. Recommend correlation with recent echocardiograms if available. 3. Hypoexpanded lungs. Other Results IMPRESSION: 1. Minimal patchy nonspecific ground glass opacity within the lung bases, suspicious for infectious process in the appropriate clinical setting. 2. Mild nonspecific hepatomegaly. Assessment/Plan Assessment: 72-year-old female with past medical history of asthma, ADHD, hypertension, stage III diastolic failure, diabetes, history of renal stones, anemia [had iron infusions], urinary tract infection [May 2017], ?LEONARD/cirrhosis came to [facility] with complaints of nausea, vomiting, weakness, diarrhea and 2 episodes of syncopal episodes admitted to [facility] in view of acute gastroenteritis, community acquired/aspiration pneumonia. Admission vitals Temperature 101.5, respiratory rate 16, pulse rate 113, blood pressure 159/70 admission labs Sodium 139, potassium 4.9, cl-107,co2-19, BUN 29, creatinine 1.2, lactic acid 3.3, calcium 8, lipase 382,wbc-10.6 with 7 bands,hb-12.3, Echocardiogram - may 2017 Normal left and right ventricular systolic function. Stage 3 diastolic dysfunction. Mild left atrial enlargement. Moderate Mitral and Mild Tricuspid Regurgitation with Moderate Pulmonary hypertension. Problem list 1. Sepsis secondary due to acute gastroenteritis, community acquired/aspiration pneumonia 2.Vasovagal syncope 3. Diabetes 4.HFpEF 5. Hypertension 6. Asthma 7. CK D Assessment and plan * Patient has evidence of sepsis [lactic acid 3.3, temperature 101.5] which can be secondary due to acute gastroenteritis or pneumonia. * Patient's history of " regular breathing" for the past week, vomiting and x- ray showing basilar opacity which is more towards aspiration pneumonia given her large hiatal hernia. we will start her on Unasyn. * Antibiotics can be changed depending upon cultures. TRC nebulization. Trend lactic acid. Initial lactic acid was 3.3. * Trend troponins and EKG. * Patient looks dehydrated because of nausea and vomiting, diarrhea secondary dur to viral gastroenteritis. Her labs shows hyperchloremic metabolic acidosis with no gap. We will give her IV fluids at 100 mL per hour. Orthostatics negative. * We will give Zofran for nausea and vomiting. * We will send stool culture and C. difficile. CT abdomen and pelvis was done in the ED which showed nonspecific groundglass opacity within the lung bases suspicious for infectious process and hepatomegaly. * On her home medications are held in view of her dehydration and vasovagal syncope. Once patient condition stabilizes we can restart her home medication in a.m. * Strict I's and O's. * Accu-Chek and will start her on NovoLog sliding scale insulin. * If any arrhythmia,We will get cardiology consult in a.m. * We will hold her blood pressure medication. * We will monitor her C BC, BEP in a.m. * we will send rapid flu,legionella,strp pneumonia,frias cultures,cdiff,stool culture * GI prophylaxis-Pantoprazole IV Code-full code DVT prophylaxis-subcutaneous heparin Diet-clear liquid diet As Ranked By This Provider Problem List: 1. Sepsis 2. Lactic acidosis 3. Diarrhea 4. Nausea and vomiting 5. Cirrhosis 6. Aspiration pneumonia 7. Viral gastroenteritis Core Measures/Misc (08/17) Acute Coronary Syndrome ACS Diagnosis: No Congestive Heart Failure Congestive Heart Failure Diagnosis No Cerebrovascular Accident CVA/TIA Diagnosis: No VTE (View Protocol) VTE Risk Factors Age>40 No Mechanical VTE Prophylaxis d/t Other No VTE Pharm Prophylaxis d/t Other Sepsis (View protocol) Sepsis Present: Yes Suman Bob 12/01/17 0457: Resident Review Statement Resident Statement: examined this patient, discussed with equine intern, agreed with equine intern, reviewed images Other Findings: Ms Escalante is a 72 year old woman who was known to be in her usual state of health until the pm of presentation, and was brought to the ER by EMS accompanaid by her with a chief concern of an acute onset of vomiting, diarrhea and syncope. She has a past medical history of asthma, HFpEF, chronic anemia, LEONARD--> cirrhosis(?), Recent diagnosis of left bundle branch block, CKD, type 2 diabetes. As per her , Ms. Escalante had occassional non-productive cough for the last few days, but did not have any fever or shortness of breath. Around 7 PM, while she was going into the kitchen when she had an episode of syncope, for a brief period of time. She also had vomiting and diarrhea at that time, and had a syncopal episode after a few minutes, which lasted for a few minutes. At the second episode, she was found to be "hot", but did not a recorded high temeperature. She did not have any chest pain, palpitations, shortness of breath at that time. No prodromoal symptoms, noted at that time, as per the pt. She had several episodes of diarrhea. At the time of [id number]-206.5, pulse rate 118, respirations 20, blood pressure 174/82, pulse ox 95% on room air. On examination, she was in mild distress. She was alert and oriented, but did not appear comfortable. Mucosal membranes appear dry. No pallor, lymphadenopathy was noted. No posterior nasal drip or posterior pharyngeal erythema was noted. No accessory muscles for respiration were used. Lung auscultation did not reveal any abnormal sounds. Heart examination was within normal limits. She had hepatomegaly, with no splenomegaly. No tenderness was noted. No pedal edema. Pertinent lab findings: WBC 10.6 (with 95% granulocytosis and 7 bands), hemoglobin 12.3, hematocrit 36.5, platelets 298. She had low bicarbonate likely from acidosis or GI losses. Bicarbonate 19, serum creatinine 1.2 (baseline 1.3) , anion gap 13. Lactic acid 3.3, slightly elevated, calcium is 8.0. Glucose 293, with urine glucose above 1000. Cardiac exam-troponin 0.01, lipase 382 ( mostly intestinal), chest x-ray revealed bibasilar opacity likely suggestive of consolidation. EKG revealed normal sinus rhythm, with tachycardia with left bundle branch block (which is old). Last echocardiogram revealed left ventricular ejection fraction of greater than 60% with stage III diastolic dysfunction. She also had an incidental finding of elevated right ventricle systolic pressure of about 50 mm, likely pulmonary hypertension (? Primary). Etiology for patient who has an acute episodes of nausea, vomiting and diarrhea that resulted in possible vasovagal episodes, is likely viral in origin. Although influenza swab is negative, other viral causes could be possible. Respiratory findings, supported by radiological findings are consistent with pneumonia, although she is not a classic patient who would mount a typical immune response for pneumonia. Since she had syncope, aspiration should be considered as a secondary complication. Although, this could be a viral infection, she should initially be treated with slightly broad spectrum antibiotics covering gram positives, negatives and anaerobes. In her case, NM should be kept in the differentials, and follow repeat electrocardiogram and cardiac enzymes. Since she has syncope, although vasovagal, should be monitored on telemetry for at least 24 hours, given her history of left bundle branch block that would not allow us to interpret any ST changes. She should also be aggressively fluid resuscitated, and follow lactate closely for prognostic purposes. Plan: #1 pneumonia- start the patient on Unasyn, renal adjusted doses for pneumonia. The patient shows improvement in the next 24-48 hours, antibiotics could be converted to by mouth, to cover microbes for community-acquired pneumonia. Follow-up cultures and antigen tests for strep and legionella. Meets sepsis criteria, was already given abx, started on fluids, and lactate trended. #2 nausea, vomiting-fluid resuscitation, with IV PPIs and antiemetics. Viral enteritis is usually self-limiting. Check C. difficile toxin. #3 [id number], insulin sliding scale. Hold oral hypoglycemics. Check HbA1c. Housekeeping: #1 DVT prophylaxis-subcutaneous heparin. #2 pain pathway #3 nothing by mouth Frankie GRAY, [facility] 12/01/17 0521: Attending MD Review Statement Attending Statement Attending MD Statement: examined this patient, discuss w/resident/PA/CONDUIT CLEANER, agreed w/resident/PA/CONDUIT CLEANER, discussed with family, reviewed images, amended to note Attending Assessment/Plan: 72 yo F with h/o asthma, T2DM, diastolic CHF, HTN, ADHD, CKD stage 3, anemia, LEONARD (non-alcoholic cirrhosis), is brought in by for evaluation of syncope x2, vomiting and diarrhea of acute onset. provides detailed history. He reports that patient has been having cough and congestion for the past few days but not bringing up any phlegm. This evening, patient was in the kitchen, stated to her that she was not feeling well, and slowly went down on her knees, passed out for a few seconds. He called 911, who then evaluated patient, noted blood sugar in 200's with normal vitals. They suggested to bring her to ER, but patient refused as she felt better. Around 11 pm, patient was in the bathroom, had an episode of vomiting and diarrhea and then passed out again for a few seconds. There was no head strike or trauma. When she woke up, patient was incoherent and out of it, hence called 911. He did not note any seizure like activity. She was initially cold (temperature normal) and later was 'hot' prior to coming in to ER. reports that patient does not keep herself hydrated. They were out on Friday for a pre-erik dinner but yesterday they had home cooked meal, no outside food. No recent antibiotic use or new medications. Patient had multiple episodes of loose brown stool in the ER and an episode of vomiting as well. Patient reports feeling lightheaded prior to the syncopal episode, but denies abdominal pain or cramps, chills, cough or urinary symptoms. Vitals: Tmax 101.5, HR 110-120's, BP 152/70, sats 94% RA. Exam: lethargic but arousable, ill-appearing female, very dry mucous membranes, no pharyngeal erythema, no pallor, Neck supple, Chest few basilar crackles right base, Heart S1S2 regular tachycardic, Abd soft, NT, BS+, LE: no edema. No obvious SSTI. No CVA tenderness. Labs: WBC 10.6, bands 7, H/H 12.3/36.5, Plt 298, bicarb 19, BUN 29, creat 1.2 ( baseline) glucose 293, lactic acid 3.3--> 2.3, Ca 8.0, AST 40, trop neg, lipase 382. UA: trace protein, glucosuria. CXR: streaky basilar opacity silhouetting left heart border suspicious for early infiltrate, hypoexpanded lungs, borderline prominent cardiac silhouette. CT abd/pelvis without contrast: minimal patchy nonspecific ground glass opacity within the lung bases suspicious for infectious process, mild hepatomegaly. Moderate sized hiatal hernia, slightly enlarged from previous, with fluid evident within the distal thoracic esophagus. EKG: sinus tachycardia with incomplete LBBB (old), no acute changes. Echo (2017) : EF 60-65%, stage 3 diastolic dysfunction, moderate MR, moderate pulmonary hypertension. Orthostats done in ER were negative. Assessment and plan: 1. Syncope likely vasovagal 2. Sepsis 3. Pneumonia likely aspiration in the setting of large hiatal hernia vs. Community acquired 4. Acute onset of vomiting and diarrhea likely viral etiology 5. Normal AG metabolic acidosis 2/2 diarrhea 6. Lactic acidosis 7. CKD stage 3 stable 8. History of diastolic heart failure - Admit to Telemetry - Monitor for arrhythmias - Serial EKG and troponin to rule out ACS - No need for repeat echo or cardio consult unless patient's troponins trend up - TRC with nebs - Panculture blood culture x 2, urine culture, stool Cdiff, culture, ova and parasites - Check urine legionella and strep Ag - IV Unasyn for now - IV fluids 3L given in ER, continue maintenance at 100/hr - Trend lactic acid - Check acetone - Monitor I/O's - NPO, anti-emetics, swallow eval when more alert. - Fall and aspiration precautions - Diabetes management check HbA1c, insulin SS, hold metformin, glimepiride and januvia - Hold lasix, HCTZ, losartan. - Continue metoprolol and aspirin. GI ppx IV protonix, DVT ppx Hep SC. Full code.
--- NOTE | 2017-12-01 03:26 | CT SCAN REPORT ---
EXAMINATION: CT ABDOMEN AND PELVIS WITHOUT CONTRAST CLINICAL INFORMATION: Diarrhea. COMPARISON: CT abdomen and pelvis dated 05/25/2008. TECHNIQUE: Multidetector volumetric imaging was performed from the superior aspect of the liver through the pubic symphysis. Sagittal and coronal reformatted images were obtained on the technologist's workstation. DLP: 296 mGy-cm FINDINGS: LUNG BASES: There are patchy nonspecific areas of groundglass opacity within the lung bases. A moderate sized hiatal hernia is noted, slightly enlarged from 2007. Fluid is evident within the distal thoracic esophagus. LIVER, GALLBLADDER, AND BILIARY TREE: The liver is mildly enlarged measuring 20 cm craniocaudally. Liver is otherwise normal in attenuation without biliary ductal dilatation or mass evident on this unenhanced scan. Cholelithiasis is noted without CT evidence of acute cholecystitis. PANCREAS: Unremarkable. SPLEEN: Unremarkable. ADRENAL GLANDS: Unremarkable. KIDNEYS AND URETERS: The kidneys are normal in size, shape, and attenuation. No hydronephrosis, hydroureter, or calculi seen. No perinephric stranding. BLADDER: Unremarkable. GASTROINTESTINAL TRACT: The small and large bowel are unremarkable. The appendix is not definitively identified but there is no focal right lower quadrant inflammatory stranding. ABDOMINAL WALL: No significant hernia is appreciated. LYMPH NODES: Normal. VASCULAR: There are scattered atherosclerotic vascular calcifications without abdominal aortic aneurysm. PELVIC VISCERA: Unremarkable. OSSEOUS STRUCTURES: Unremarkable. IMPRESSION: 1. Minimal patchy nonspecific ground glass opacity within the lung bases, suspicious for infectious process in the appropriate clinical setting. 2. Mild nonspecific hepatomegaly.
--- NOTE | 2017-12-01 03:53 | Admission Certification ---
Admission Certification Certification Statement - As attending physician, I certify that at the time of - admission, based on clinical presentation, severity of - symptoms, need for further diagnostic testing and - therapeutic interventions, and risk of adverse outcomes - without in-hospital treatment, in my clinical assessment, - this patient requires an acute hospital stay for a minimum - of two nights or longer. I have also considered psychsocial - factors such as support system, advanced age, financial - issues, cognitive issues, and failed out-patient treatments, - past re-admission history, safety of patient, and lack of - compliance as applicable. Specific rationale supporting this admission is: Syncope, Sepsis, pneumonia, viral gastroenteritis.
--- NOTE | 2017-12-01 04:15 | History & Physical ---
General Information and HPI Allergies/Medications Allergies: Coded Allergies: NO KNOWN ALLERGIES (12/29/16) Home Med list Albuterol Sulfate (Proair Hfa) 90 MCG HFA.AER.AD 2 PUF INH Q4-6 PRN PRN ASTHMA (Reported) Aspirin (Ecotrin*) 81 MG TABLET.DR 1 TAB PO DAILY HEART (Reported) Atorvastatin Calcium 20 MG TABLET 1 TAB PO DAILY CHOL (Reported) Buspirone HCl 10 MG TABLET 10 MG PO DAILY ANXIETY (Reported) Dextroamphetamine/Amphetamine (Dextroamp-Amphetamine 5 MG Tab) 5 MG TABLET 1 TAB PO DAILY ADHD (Reported) Fenofibrate Nanocrystallized (Fenofibrate) 145 MG TABLET 1 TAB PO DAILY cholestrol (Reported) Furosemide (Lasix) 20 MG TABLET 1 TAB PO DAILY CHF Glimepiride 2 MG TABLET 1 TAB PO DAILY DM (Reported) Hydrochlorothiazide 25 MG TABLET 1 TAB PO DAILY HTN (Reported) Lansoprazole 30 MG CAPSULE.DR 1 CAP PO DAILY GERD (Reported) Losartan (Cozaar) 100 MG TABLET 100 MG PO DAILY HTN (Reported) Metformin HCl 500 MG TABLET 1,000 MG PO BID DM (Reported) Metoprolol Succinate 25 MG TAB 1 TAB PO DAILY HTN (Reported) Sitagliptin Phosphate (Januvia) 100 MG TABLET 1 TAB PO DAILY DM (Reported) Past History Travel History Traveled to [place] past 21 day No Medical History Neurological: NONE EENT: NONE Cardiovascular: HTN,CHOL Respiratory: asthma Gastrointestinal: NONE Hepatic: NONE Renal: NONE Musculoskeletal: NONE Psychiatric: NONE Endocrine: DM Blood Disorders: NONE Cancer(s): NONE HEALTH OUTCOMES LIAISON/Reproductive: NONE History of MRSA: No History of VRE: No History of CDIFF: No Surgical History Surgical History: non-contributory Past Family/Social History Family History Relations & Conditions if any FATHER, ; Cause: Myocardial infarct. MOTHER, ; Cause: Dementia. Psychosocial History Who Do You Live With? spouse Services at Home: Oxygen Primary Language: Stateless Functional Ability ADLs Independent: dressing, eating, toileting, bathing. IADLs Independent: shopping, housework, finances, food prep, telephone, transportation , medication admin.
[2017-12-01 05:24] VITALS: BP 150/62
[2017-12-01 08:42] LABS: MEAN CORPUSCULAR HGB 30.7 PG (27.0-31.0); MEAN CORPUSCULAR VOLUME 90.5 FL (81.0-99.0); MEAN PLATELET VOLUME 9.2 FL (7.4-10.4); PLATELET COUNT 236 /CUMM (130-400); RBC DISTRIBUTION WIDTH 13.2 % (11.5-14.5); RED BLOOD CELL CT 3.29 /CUMM (4.20-5.40)
[2017-12-01 08:55] LABS: HEMATOCRIT 29.8 % (37-47); WHITE BLOOD CELL COUNT 5.2 /CUMM (4.8-10.8)
[2017-12-01 10:00] VITALS: BP 130/70
--- NOTE | 2017-12-01 12:55 | PN- Att Addend ---
Attending Addendum Attending Brief Note Ms. Escalante was seen and evalauted. H&P reviewed. Briefly, she is a 72 yo F with h/o T2DM, diastolic CHF,~LEONARD, is brought in by for evaluation of syncope x2, vomiting and diarrhea of acute onset. She denies any direct sick exposure. Currently, reports slight improvement as able to converse. However, still very weak. No further vomiting. Vital Signs Date Time Temp Pulse Resp B/P B/P Pulse O2 O2 Flow FiO2 Mean Ox Delivery Rate 12/01 0949 100.5 12/01 0912 104 130/72 12/01 0850 100.7 12/01 0524 111 18 150/62 94 12/01 0511 Room Air 12/01 0424 99.9 110 16 152/70 93 Room Air 12/01 0124 100.9 113 16 159/70 93 Room Air 12/01 0047 100.7 11/30 2353 101.5 11/30 2344 95 Room Air 11/30 2343 101.5 118 20 174/82 95 Room Air Room Air Intake & Output 12/01 1600 12/01 0800 12/01 0000 Intake Total 3100 Output Total 800 Balance 2300 Intake, IV 3100 Intake, Oral 0 Number 2 Bowel Movements Output, Stool 500 Output, Urine 300 Patient 65.771 kg 52.163 kg Weight Weight Reported by Patient Measurement Method Labs/Diagnostics: reviewed A/P:Cont to monitor closely, suspect viral infection ? pulmonary source IVF hydration and symptomatic treatment for fever f/u culutres Cont insulin coverage rest of the plan as per resident's note
[2017-12-01 14:33] VITALS: BP 134/62
[2017-12-01 22:00] VITALS: BP 100/60
[2017-12-02 06:09] VITALS: BP 114/72
[2017-12-02 08:04] LABS: ABSOLUTE BASOPHIL COUNT 0 /CUMM (0.0-0.2); ABSOLUTE EOSINOPHIL COUNT 0.1 /CUMM (0.0-0.7); ABSOLUTE GRANULOCYTE CT 3.3 /CUMM (1.4-6.5); ABSOLUTE LYMPH COUNT 0.7 /CUMM (1.2-3.4); ABSOLUTE MONOCYTE COUNT 0.2 /CUMM (0.10-0.60); BASOPHIL % 0.3 % (0.0-2.0); EOSINOPHIL % 1.6 % (0-5); GRANULOCYTE % 77.4 % (42.2-75.2); HEMATOCRIT 27.1 % (37-47); MEAN CORPUSCULAR HGB 30.2 PG (27.0-31.0); MEAN CORPUSCULAR HGB CONC 33.3 G/DL (33.0-37.0); MEAN CORPUSCULAR VOLUME 90.7 FL (81.0-99.0); MEAN PLATELET VOLUME 8.9 FL (7.4-10.4); PLATELET COUNT 202 /CUMM (130-400); RBC DISTRIBUTION WIDTH 13.1 % (11.5-14.5); RED BLOOD CELL CT 2.99 /CUMM (4.20-5.40); WHITE BLOOD CELL COUNT 4.3 /CUMM (4.8-10.8)
--- NOTE | 2017-12-02 08:53 | PN- Housestaff ---
Noe GRAY,Osman 12/02/17 0853: Subjective Follow-up For: Acute gastroenteritis Follow-up with left basal pneumonia Complaints: generalized weakness Tele-Events Since Last Visit: no any overnight events normal sinus rhythm, heart rate between Subjective: Patient is seen and examined at the bedside. She was complaining of generalized weakness. She denies for any dizziness. We discussed about the plan for today. We started her on clear liquid diet. Review of Systems Constitutional: Reports: no symptoms, weakness. Objective Last 24 Hrs of Vital Signs/I&O Vital Signs Date Time Temp Pulse Resp B/P B/P Pulse O2 O2 Flow FiO2 Mean Ox Delivery Rate 12/02 0609 98.7 82 20 114/72 93 Room Air 12/01 2200 98.7 78 20 100/60 93 12/01 1743 100.9 12/01 1433 100.9 92 20 134/62 94 Room Air 12/01 1000 100.6 104 27 130/70 97 Room Air 12/01 0949 100.5 Intake & Output 12/02 1600 12/02 0800 12/02 0000 Intake Total 1200 1200 Output Total 650 Balance 1200 550 Intake, IV 1200 1200 Intake, Oral 0 Number 3 5 Bowel Movements Output, Urine 650 Physical Exam General Appearance: Alert, Oriented X3, Cooperative, No Acute Distress Cardiovascular: Normal S1, Normal S2 Lungs: Clear to Auscultation, Normal Air Movement Abdomen: Soft, No Tenderness, distended, bowel sounds positive Neurological: Normal Speech Extremities: No Clubbing, No Cyanosis, No Edema Vascular: Normal Pulses, Pulses Symmetrical Current Medications: Current Medications Sig/Leslie Start time Last Medication Dose Route Stop Time Status Admin Acetaminophen 650 MG Q4P PRN 12/01 1600 AC 12/01 PO 1743 Acetaminophen 1,000 MG Q6P PRN 12/01 0845 DC 12/01 N/A 1 UNIT IV 0850 Ampicillin Sodium/ 1,500 MG Q8 12/01 0600 AC 12/02 Sulbactam Sodium IV 0555 Sodium Chloride 100 ML Aspirin Buffered 81 MG DAILY 12/01 1000 AC 12/01 PO 0913 Buspirone HCl 10 MG DAILY 12/01 1000 AC 12/01 PO 0913 Heparin Sodium 5,000 UNIT Q8 12/01 0600 AC 12/02 (Porcine) SC 0554 Insulin Aspart 0 TIDAC 12/02 1200 AC SC Insulin Human Regular 0 Q6 12/01 0600 DC 12/01 SC 1202 Metoprolol Succinate 25 MG DAILY 12/01 1000 DC 12/01 PO 0912 Pantoprazole Sodium 40 MG DAILY 12/01 0430 AC 12/01 IV 0436 Sodium Chloride 500 ML BOLUS ONE 12/01 0845 DC 12/01 IV 12/01 0944 0848 Sodium Chloride 1,000 ML .Q10H 12/01 0315 AC 12/02 IV 0147 Last 24 Hrs of Lab/Gutierrez Results Last 24 Hrs of Labs/Mics: And Laboratory Tests 12/02/17 0618: Anion Gap 12, Estimated GFR 49 L, BUN/Creatinine Ratio 11.8, CBC w Diff NO MAN DIFF REQ, RBC 2.99 L, MCV 90.7, MCH 30.2, RDW 13.1, MPV 8.9, Gran % 77.4 H, Lymphocytes % 16.2 L, Monocytes % 4.5, Eosinophils % 1.6, Basophils % 0.3, Absolute Granulocytes 3.3, Absolute Lymphocytes 0.7 L, Absolute Monocytes 0.2, Absolute Eosinophils 0.1, Absolute Basophils 0, PUBS MCHC 33.3 12/01/17 1440: Lactic Acid Cancelled 12/01/17 1205: Lactic Acid 1.5 Microbiology 12/02 844 URINE ROUT: Legionella Antigen - ORD 12/02 844 URINE ROUT: Streptococcus pneumoniae Antigen (M - ORD 12/01 2200 NASOPHARYN: Influenza Virus A & B Rapid Smear - COMP Assessment/Plan Assessment: Patient is a 72-year-old female with significant past medical history of asthma, ADHD, hypertension, stage III, diastolic failure, diabetes, nephrolithiasis, iron deficiency anemia, cirrhosis of the liver, UTI in May 2017, type 2 diabetes presented with chief complaints of acute episode of diarrhea associated with nausea and vomiting followed by syncopal episodes since one day. ED course -vital signs temperature 101.5, pulse 118, respiratory rate 20, blood pressure 174/82, SPO2 95% on room air. Blood workup showed hemoglobin 12 point 3 , hematocrit 30 6.5, platelet count 298, and sat 90 5.5, lymphocyte 2.1, and 77, serum sodium 142, potassium 4.1, chloride 113, anion gap 13, BUN 23, creatinine 1.1, GFR 49, lactic acid 3.3. Flu test was negative, blood cultures, stool cultures were taken. Chest x-ray showed streaky basilar opacity to nurse left heart border. Suspicion for pneumonia. Patient was admitted to general medicine floor, for treatment of left lower lobe pneumonia. She was started on Unasyn, IV fluids, and antacid. Left lower lobe Pneumonia, possible aspiration, associated viral gastroenteritis - * We'll continue Unasyn * IV fluid 100 mL per hour * strict intake output charting * Orthostatic blood pressure * GENI, lactic acidosis is recovering Lower GI bleed I was called by the nurse that patient is having blood in the stool. I did saw the blood was bright red and mixed with the urine. * Advised to have stat CBC * We will david GI for further evaluation type2 DM - * Blood sugar measurement 3 times a day/at bedtime * NovoLog according to the sliding scale Diet -consistent carbohydrate 2. Diet CODE STATUS-full code DVT prophylaxis-ALP S/heparin Problem List: 1. Diarrhea 2. Nausea and vomiting 3. Viral gastroenteritis 4. Aspiration pneumonia Pain Ratin Pain Location: n/a Pain Goal: Remain pain free Pain Plan: Avoid NSAIDs Tomorrow's Labs & Rationales: cbc,BEP for f/u DVT/Prophylaxis: mechanical, pharmacological Roxy GRAY,Fahad 12/02/17 1444: Attending MD Review Statement Attending Statement Attending MD Statement: examined this patient, discuss w/resident/PA/STATISTICAL MACHINE SERVICER, agreed w/resident/PA/STATISTICAL MACHINE SERVICER, discussed with family, reviewed EMR data (avail), discussed with nursing, discussed with case mgmt, amended to note Attending Assessment/Plan: Patient seen and examined. Lying comfortably in bed in any acute distress. present at the bedsideShe reports feeling better. she denies cough or shortness of breath. Denies chest pain. She continues to have loose stools although decreasing in quantity. She was noted with what appears to be bloody stools this afternoon. O recommendations: N examination she is not in any acute distress. Lungs are clear bilaterally. Abdomen is soft and nontender. She has no peripheral edema. Recommendations: On account of her fever and-chest x-ray highly suspicious for an infiltrate on the left she was started empirically on IV Unasyn for presumed pneumonia. Follow-up pancultures. -Follow-up stool workup including stool WBC, culture and Clostridium difficile toxin. -She is noted to have a drop in hemoglobin level however this appears to be due to hemodilution when compared to her previous labs. Repeat hemoglobin level this afternoon and monitor every 8 hours. Obtain GI consultation. this afternoon and monitor every 8 hours. Obtain GI consultation.
--- NOTE | 2017-12-02 08:55 | Discharge Summary ---
Visit Information Visit Dates Admission Date: 12/01/17 Discharge Date: 12/05/2016 Hospital Course Course Attending Physician: Dr Raji Rodrigues Primary Care Physician: Madison GRAY,Umu Min Hospital Course: Patient is a 72-year-old female with significant past medical history of asthma, ADHD, hypertension, stage III diastolic failure,nephrolithiasis, iron deficiency anemia(on IV iron preparation), hepatic steatosis, UTI in May 2017, type 2 diabetes presented with chief complaints of acute episode of diarrhea associated with nausea and vomiting followed by syncopal episodes since one day. ED course -vital signs temperature 101.5, pulse 118, respiratory rate 20, blood pressure 174/82, SPO2 95% on room air. Blood workup showed hemoglobin 12.3, hematocrit 36.5, platelet count 298, granulocyte 95.5, serum sodium 142, potassium 4.1, chloride 113, anion gap 13, BUN 23, creatinine 1.1, GFR 49, lactic acid 3.3. Flu test was negative, blood cultures and stool cultures were taken. Chest x-ray showed streaky basilar opacity to left heart border,with suspicion for pneumonia. Patient was admitted to general medicine floor for treatment of left lower lobe pneumonia. She was started on Unasyn, IV fluids, and antacid. Acute gastroenteritis, left lower lobe pneumonia, possibly aspiration or community Acquired Pneumonia leading to GENI and lactic acidosis - Patient was initially admitted to the general medicine floor,but she had episodes of syncope so transfer to telemetry floor for further evaluation. Serial troponins and EKGs were negative. Chest x-ray showed streaky basilar opacity to left heart border, suspicion for pneumonia. CT Abdoman and Pelvis showed mild hepatomegaly.We continued on Unasyn and IV fluids.Follow-up blood cultures and urine cultures were negative.Stool for C.diff toxin was negative. We started patient on tablet Augmentin to complete the total 7 days.(12/01/2017 - 12/07/2017). We advised her to follow-up with PCP. Advised her to come back to ED if she started having watery diarrhea again. Acute CHF, HFpEF secondary to fluid overload - She was not able to tolerate IV fluids and went into florid pulmonary edema and acute CHF. CXR showed new diffuse interstitial prominence with trace bilateral pleural effusions and a prominent cardiac silhouette.We stopped IV fluids, gave IV lasix and obtained cardiology consult. They advised to continue same management and echocardiogram. Echocardiogram showed LVEF 60-65%, mild concentric LVH, RVSP 12mmHg. Patient was discharged on tab Lasix 20 mgs every alternate day. We advised her to follow-up with manager demand within a week of discharge Lower GI bleed secondary to internal hemorrhoids - Patient had small amount of bleeding per rectum. We took the consult from special forces warrant officer. Advised for conservative management and regular monitoring of hemoglobin. Type 2 diabetes - We regularly monitored blood sugar level (84-305) and gave insulin accordingly. Restarted on her home medication including metformin, Januvia, glimepiride. We advised her to follow-up with her assembly line machine operator within a week of discharge. Allergies: Coded Allergies: NO KNOWN ALLERGIES (12/29/16) Disposition Summary Disposition Principal Diagnosis: Acute gastroenteritis, left lower lobe pneumonia, possibly aspiration/ CAP Lower GI bleed secondary to internal hemorrhoids Acute CHF secondary to fluid overload Additional Diagnosis: History of asthma History of ADHD Hypertension Stage III diastolic failure Type 2 diabetes History of nephrolithiasis History of Hepatic Steatosis History of iron deficiency anemia on IV infusion History of UTI(2017) Discharge Disposition: home or self care Discharge Instructions General Discharge Information Code Status: Full Code Patient's Diet: Consistent carbohydrate 2 Diet Patient's Activity: As tolerated Follow-Up Instructions/Appts: Please follow-up with your PCP within a week of discharge Please take the medication as advised At the time of discharge, patient was concerned for unble to sleep and memory loss. We advised for an outpatient evaluation and referal to PCP. We didnt prescribed any medication because of concern of fall and Dizziness. Medications at Discharge Discharge Medications: Continue taking these medications: Atorvastatin Calcium (Atorvastatin Calcium) 20 MG TABLET 1 Tablet ORAL DAILY Qty = 90 Comments: did not take in hospital Lansoprazole (Lansoprazole) 30 MG CAPSULE.DR 1 Capsule ORAL DAILY Qty = 90 Comments: Last Taken: 12/05/17 Time: 0600 Metoprolol Succinate (Metoprolol Succinate) 25 MG TAB 1 Tablet ORAL DAILY Qty = 180 Comments: not given in hospital Fenofibrate Nanocrystallized (Fenofibrate) 145 MG TABLET 1 Tablet ORAL DAILY Qty = 90 Comments: did not receive in hospital Metformin HCl (Metformin HCl) 500 MG TABLET 1,000 Milligram ORAL TWICE DAILY Qty = 360 Comments: Last Taken: NOT GIVEN IN HOSPITAL Time: Hydrochlorothiazide (Hydrochlorothiazide) 25 MG TABLET 1 Tablet ORAL DAILY Qty = 90 Comments: Last Taken: NOT GIVEN IN HOSPITAL Time: Dextroamphetamine/Amphetamine (Dextroamp-Amphetamine 5 MG Tab) 5 MG TABLET 1 Tablet ORAL DAILY Qty = 180 Comments: Last Taken: NOT GIVEN IN HOSPITAL Time: Albuterol Sulfate (Proair Hfa) 90 MCG HFA.AER.AD 2 Puff Inhale through mouth EVERY 4-6 HOURS NEEDED as needed for ASTHMA Qty = 25 Comments: did not take in hospital Aspirin (Ecotrin*) 81 MG TABLET.DR 1 Tablet ORAL DAILY Comments: did not take in hospital Losartan (Cozaar) 100 MG TABLET 100 Milligram ORAL DAILY Comments: Last Taken: NOT GIVEN IN HOSPITAL Time: Glimepiride (Glimepiride) 2 MG TABLET 1 Tablet ORAL DAILY NEEDED Comments: Last Taken: NOT GIVEN IN HOSPITAL Time: Buspirone HCl (Buspirone HCl) 10 MG TABLET 10 Milligram ORAL DAILY Comments: Last Taken: 12/05/17 Time: 8:30 AM Calcium Carbonate/Vitamin D3 (Calcium 500 + D Tablet) 500 MG-400 TABLET 2 Tablet ORAL DAILY Qty = 30 Comments: did not take in hospital Sitagliptin Phosphate (Januvia) 100 MG TABLET 1 Tablet ORAL DAILY Qty = 30 Comments: Last Taken: NOT GIVEN IN HOSPITAL Time: This prescription has been renewed Start taking the following new medications: Augmentin (Augmentin 500-125 Tablet) 500 MG-125 MG TABLET 500 Milligram ORAL EVERY 12 HOURS as needed for pneumonia Qty = 4 No Refills Comments: Last Taken:12/05/17 Time:0900 The following medications have been changed: Old: Furosemide (Lasix) 20 MG TABLET 1 Tablet ORAL DAILY Qty = 30 New: Furosemide (Lasix) 20 MG TABLET 1 Tablet ORAL EVERY 48 HOURS (Every 2 days) Qty = 30 Comments: Last Taken: 12/05/17 Time:0900 Copies To: Madisno GRAY,Umu Christianson MD Review Statement Documenting Attending: Fahad Ramsey MD Other Findings: Discharged in stable condition.
[2017-12-02 14:54] VITALS: BP 130/70
--- NOTE | 2017-12-02 15:52 | Cons- Gastroenterology ---
General Information and HPI Consulting Request Date of Consult: 12/02/17 Requested By: Fahad Ramsey MD Reason for Consult: 1. Blood in Stool 2. Anemia Source of Information: patient, family Exam Limitations: poor historian History of Present Illness: Ms. Tiwari is a 72-year-old white female with past medical history of anemia for which she has undergone an an extensive workup. History is largely provided by her who reports that due to her ADHD she has a poor memory, but that he "remembers everything.". She sees a insulator cutter and former in [place] named Virginia Mayes and underwent both an EGD and colonoscopy last in 2016. She had previously been on scheduled to have colonoscopies every 5 years but in 2016 she had adenomatous polyps and is now scheduled to have a colonoscopy every 3 years. She also had a capsule endoscopy which he felt was sufficient but less than optimal due to rapid transit. Miss Escalante was told by Dr. Mayes that she had cirrhosis due to her diabetes. She is never been told in the past that she had abnormal liver associated enzymes. She was seen by a doctor with at [facility] at the [facility]. Dr. Lemus is a mortgage loan officer who in the fall of this year treated Ms. Escalante with an iron infusion and reported that depending on her response would consider, after 6 months, repeating it if needed. No one had mentioned the possibility of performing double balloon enteroscopy. Further Miss Escalante have been told by Dr. Lemus that she did not have cirrhosis. Miss Escalante presented to [facility] ED with a chief complaint of weakness and symptoms of orthostasis. She had had nausea, vomiting and diarrhea with blood either in her emesis or stool. She had 2 syncopal episodes lasting "15 seconds." She is not having any nausea, vomting or abdominal pain now. We are called because one of the medical residents noted fresh red blood admixed with stool and urine. She has had no weight loss, night sweats, or fatigue. A CT Scan of the abdomen and pelvis without contrast was done in the ED. The results are as follows: FINDINGS: LUNG BASES: There are patchy nonspecific areas of groundglass opacity within the lung bases. A moderate sized hiatal hernia is noted, slightly enlarged from 2007. Fluid is evident within the distal thoracic esophagus. LIVER, GALLBLADDER, AND BILIARY TREE: The liver is mildly enlarged measuring 20 cm craniocaudally. Liver is otherwise normal in attenuation without biliary ductal dilatation or mass evident on this unenhanced scan. Cholelithiasis is noted without CT evidence of acute cholecystitis. PANCREAS: Unremarkable. SPLEEN: Unremarkable. ADRENAL GLANDS: Unremarkable. KIDNEYS AND URETERS: The kidneys are normal in size, shape, and attenuation. No hydronephrosis, hydroureter, or calculi seen. No perinephric stranding. BLADDER: Unremarkable. GASTROINTESTINAL TRACT: The small and large bowel are unremarkable. The appendix is not definitively identified but there is no focal right lower quadrant inflammatory stranding. ABDOMINAL WALL: No significant hernia is appreciated. LYMPH NODES: Normal. VASCULAR: There are scattered atherosclerotic vascular calcifications without abdominal aortic aneurysm. PELVIC VISCERA: Unremarkable. OSSEOUS STRUCTURES: Unremarkable. IMPRESSION: 1. Minimal patchy nonspecific ground glass opacity within the lung bases, suspicious for infectious process in the appropriate clinical setting. 2. Mild nonspecific hepatomegaly. She had an EGD and Colonoscopy in January of 2017 that were unremarkable. Colonoscopy showed diverticulosis. Biopsies from EGD showed increased intraepithelial lymphocytes, but no villous atrophy. On admission H/H was 12.3/ 36.5 with BUN/Cr 29.2/1.2. Her H/H decreased to 9.0/26.8 with a BUN/Cr of 13/ 1.1. In May of 2017 her H/H was 8.1/23.9. Her baseline Hct appears to have been about 24. Stool cultures were negative. Allergies/Medications Allergies: Coded Allergies: NO KNOWN ALLERGIES (12/29/16) Home Med List: Albuterol Sulfate (Proair Hfa) 90 MCG HFA.AER.AD 2 PUF INH Q4-6 PRN PRN ASTHMA (Reported) Aspirin (Ecotrin*) 81 MG TABLET.DR 1 TAB PO DAILY HEART (Reported) Atorvastatin Calcium 20 MG TABLET 1 TAB PO DAILY CHOL (Reported) Buspirone HCl 10 MG TABLET 10 MG PO DAILY ANXIETY (Reported) Dextroamphetamine/Amphetamine (Dextroamp-Amphetamine 5 MG Tab) 5 MG TABLET 1 TAB PO DAILY ADHD (Reported) Fenofibrate Nanocrystallized (Fenofibrate) 145 MG TABLET 1 TAB PO DAILY cholestrol (Reported) Furosemide (Lasix) 20 MG TABLET 1 TAB PO DAILY CHF Glimepiride 2 MG TABLET 1 TAB PO DAILY DM (Reported) Hydrochlorothiazide 25 MG TABLET 1 TAB PO DAILY HTN (Reported) Lansoprazole 30 MG CAPSULE.DR 1 CAP PO DAILY GERD (Reported) Losartan (Cozaar) 100 MG TABLET 100 MG PO DAILY HTN (Reported) Metformin HCl 500 MG TABLET 1,000 MG PO BID DM (Reported) Metoprolol Succinate 25 MG TAB 1 TAB PO DAILY HTN (Reported) Sitagliptin Phosphate (Januvia) 100 MG TABLET 1 TAB PO DAILY DM (Reported) Current Medications: Current Medications Sig/Leslie Start time Last Medication Dose Route Stop Time Status Admin Acetaminophen 650 MG Q4P PRN 12/01 1600 AC 12/01 PO 1743 Acetaminophen 1,000 MG Q6P PRN 12/01 0845 DC 12/01 N/A 1 UNIT IV 0850 Ampicillin Sodium/ 1,500 MG Q8 12/01 0600 AC 12/02 Sulbactam Sodium IV 0555 Sodium Chloride 100 ML Aspirin Buffered 81 MG DAILY 12/01 1000 DC 12/02 PO 1147 Buspirone HCl 10 MG DAILY 12/01 1000 AC 12/02 PO 1147 Heparin Sodium 5,000 UNIT Q8 12/01 0600 DC 12/02 (Porcine) SC 0554 Insulin Aspart 0 TIDAC 12/02 1200 AC 12/02 SC 1203 Insulin Human Regular 0 Q6 12/01 0600 DC 12/01 SC 1202 Lactobacillus 1 CAP BID 12/02 1000 AC 12/02 Acidophilus PO 1146 Pantoprazole Sodium 40 MG DAILY 12/01 0430 AC 12/02 IV 1146 Sodium Chloride 1,000 ML .Q10H 12/01 0315 AC 12/02 IV 0147 Past History Travel History Traveled to [place] past 21 day No Medical History Neurological: NONE EENT: NONE Cardiovascular: HTN,CHOL Respiratory: asthma Gastrointestinal: NONE Hepatic: NONE Renal: NONE Musculoskeletal: NONE Psychiatric: NONE Endocrine: DM Blood Disorders: NONE Cancer(s): NONE JEWEL SUPERVISOR/Reproductive: NONE Surgical History Surgical History: non-contributory Family History Relations & Conditions If Any: FATHER, ; Cause: Myocardial infarct. MOTHER, ; Cause: Dementia. Psychosocial History Where Do You Live? Home Who Do You Live With? spouse Services at Home: Oxygen Primary Language: Cuban Smoking Status: Never Smoked ETOH Use: occasional use Illicit Drug Use: denies illicit drug use Functional Ability ADLs Independent: dressing, eating, toileting, bathing. Ambulation: independent IADLs Independent: shopping, housework, finances, food prep, telephone, transportation , medication admin. ECHO Results (as available) EF% 65 Review of Systems Review of Systems Constitutional: Reports: weakness. Denies: chills, diaphoresis, fever, malaise, unexplained weight loss. EENTM: Denies: no symptoms. Cardiovascular: Reports: syncope. Respiratory: Denies: no symptoms. GI: Reports: diarrhea, nausea, bloody stool, vomiting. Genitourinary: Denies: no symptoms. Musculoskeletal: Denies: no symptoms. Skin: Denies: no symptoms. Neurological/Psychological: Reports: other. Hematologic/Endocrine: Reports: see HPI, other. Exam & Diagnostic Data Vital Signs and I&O Vital Signs Date Time Temp Pulse Resp B/P B/P Pulse O2 O2 Flow FiO2 Mean Ox Delivery Rate 12/02 1454 99.7 82 24 130/70 95 Room Air 12/02 0609 98.7 82 20 114/72 93 Room Air 12/01 2200 98.7 78 20 100/60 93 12/01 1743 100.9 Intake & Output 12/02 1600 12/02 0400 12/01 1600 12/01 0400 11/30 1600 11/30 0400 Intake Total 1200 1200 1850 3000 Output Total 650 800 500 Balance 2158 857 3847 2500 Intake, IV 1200 1200 1650 3000 Intake, Oral 0 200 Number 3 5 6 Bowel Movements Output, Stool 500 Output, Urine 650 800 Patient 145 lb 115 lb Weight Weight Reported by Patient Measurement Method Physical Exam General Appearance: well developed/nourished, no apparent distress, alert, awake Head: atraumatic, normal appearance Eyes: Bilateral: normal appearance. Ears, Nose, Throat: hearing grossly normal Neck: normal inspection, supple Respiratory: normal breath sounds, lungs clear Cardiovascular: regular rate/rhythm, Normal S1 and S2, no rubs, murmurs or gallops Gastrointestinal: normal bowel sounds, soft, non-tender, no organomegaly Rectal: deferred Back: normal inspection, normal range of motion Extremities: no edema Neurologic/Psych: no motor/sensory deficits, awake, alert, oriented x 3 Cranial Nerves: Cranial Nerves II-XII grossly intact Skin: intact, normal color Results Pertinent Lab Results: Laboratory Tests 12/02 12/02 12/01 1400 0618 1440 Chemistry Sodium (137 - 145 mmol/L) 145 Potassium (3.5 - 5.1 mmol/L) 3.7 Chloride (98 - 107 mmol/L) 117 H Carbon Dioxide (22 - 30 mmol/L) 16 L Anion Gap (5 - 16) 12 BUN (7 - 17 mg/dL) 13 Creatinine (0.5 - 1.0 mg/dL) 1.1 H Estimated GFR (>60 ml/min) 49 L BUN/Creatinine Ratio (7 - 25 %) 11.8 Lactic Acid Cancelled Hematology CBC w Diff Pending NO MAN DIFF REQ WBC (4.8 - 10.8 /CUMM) Pending 4.3 L RBC (4.20 - 5.40 /CUMM) Pending 2.99 L Hgb (12.0 - 16.0 G/DL) Pending 9.0 L Hct (37 - 47 %) Pending 27.1 L MCV (81.0 - 99.0 FL) Pending 90.7 MCH (27.0 - 31.0 PG) Pending 30.2 RDW (11.5 - 14.5 %) Pending 13.1 Plt Count (130 - 400 /CUMM) Pending 202 MPV (7.4 - 10.4 FL) Pending 8.9 Gran % (42.2 - 75.2 %) 77.4 H Lymphocytes % (20.5 - 51.1 %) 16.2 L Monocytes % (1.7 - 9.3 %) 4.5 Eosinophils % (0 - 5 %) 1.6 Basophils % (0.0 - 2.0 %) 0.3 Absolute Granulocytes (1.4 - 6.5 /CUMM) 3.3 Absolute Lymphocytes (1.2 - 3.4 /CUMM) 0.7 L Absolute Monocytes (0.10 - 0.60 /CUMM) 0.2 Absolute Eosinophils (0.0 - 0.7 /CUMM) 0.1 Absolute Basophils (0.0 - 0.2 /CUMM) 0 PUBS MCHC (33.0 - 37.0 G/DL) Pending 33.3 12/01 12/01 12/01 1205 0718 0700 Chemistry Sodium (137 - 145 mmol/L) 142 Potassium (3.5 - 5.1 mmol/L) 4.1 Chloride (98 - 107 mmol/L) 113 H Carbon Dioxide (22 - 30 mmol/L) 17 L Anion Gap (5 - 16) 13 BUN (7 - 17 mg/dL) 23 H Creatinine (0.5 - 1.0 mg/dL) 1.1 H Estimated GFR (>60 ml/min) 49 L BUN/Creatinine Ratio (7 - 25 %) 20.9 Lactic Acid (0.7 - 2.1 mmol/L) 1.5 2.4 H Troponin I (< 0.11 ng/ml) < 0.01 Cancelled Hematology CBC w Diff MAN DIFF ORDERED WBC (4.8 - 10.8 /CUMM) 5.2 RBC (4.20 - 5.40 /CUMM) 3.29 L Hgb (12.0 - 16.0 G/DL) 10.1 L Hct (37 - 47 %) 29.8 L MCV (81.0 - 99.0 FL) 90.5 MCH (27.0 - 31.0 PG) 30.7 RDW (11.5 - 14.5 %) 13.2 Plt Count (130 - 400 /CUMM) 236 MPV (7.4 - 10.4 FL) 9.2 Segmented Neutrophils (42.2 - 75.2 %) 61 Band Neutrophils (0.0 - 5.0 %) 33 H Lymphocytes (20.5 - 51.1 %) 4 L Monocytes (1.7 - 9.3 %) 1 L Basophils (0.0 - 2.0 %) 1 Platelet Estimate (ADEQUATE) ADEQUATE Normocytic RBCs VERIFIED Normochromic RBCs VERIFIED PUBS MCHC (33.0 - 37.0 G/DL) 34.0 Toxicology Acetone Level (NEGATIVE) NEGATIVE 12/01 12/01 12/01 0600 0257 0040 Chemistry Sodium (137 - 145 mmol/L) 139 Potassium (3.5 - 5.1 mmol/L) 4.9 Chloride (98 - 107 mmol/L) 107 Carbon Dioxide (22 - 30 mmol/L) 19 L Anion Gap (5 - 16) 13 BUN (7 - 17 mg/dL) 29 H Creatinine (0.5 - 1.0 mg/dL) 1.2 H Estimated GFR (>60 ml/min) 44 L BUN/Creatinine Ratio (7 - 25 %) 24.2 Glucose (65 - 99 mg/dL) 293 H Hemoglobin A1c (4.2 - 5.8 %) 7.9 H Lactic Acid (0.7 - 2.1 mmol/L) 2.3 H Calcium (8.4 - 10.2 mg/dL) 8.0 L Total Bilirubin (0.2 - 1.3 mg/dL) 0.3 Direct Bilirubin (< 0.4 mg/dL) 0.2 AST (14 - 36 U/L) 40 H ALT (9 - 52 U/L) 34 Alkaline Phosphatase (<127 U/L) 30 Troponin I (< 0.11 ng/ml) Cancelled < 0.01 Total Protein (6.3 - 8.2 g/dL) 6.2 L Albumin (3.5 - 5.0 g/dL) 3.5 Amylase (30 - 110 U/L) 76 Lipase (23 - 300 U/L) 382 H 12/01 11/30 0007 2355 Chemistry Lactic Acid (0.7 - 2.1 mmol/L) 3.3 H Hematology CBC w Diff MAN DIFF ORDERED WBC (4.8 - 10.8 /CUMM) 10.6 RBC (4.20 - 5.40 /CUMM) 4.07 L Hgb (12.0 - 16.0 G/DL) 12.3 Hct (37 - 47 %) 36.5 L MCV (81.0 - 99.0 FL) 89.6 MCH (27.0 - 31.0 PG) 30.1 RDW (11.5 - 14.5 %) 12.9 Plt Count (130 - 400 /CUMM) 298 MPV (7.4 - 10.4 FL) 8.8 Gran % (42.2 - 75.2 %) 95.5 H Lymphocytes % (20.5 - 51.1 %) 2.1 L Monocytes % (1.7 - 9.3 %) 2.1 Eosinophils % (0 - 5 %) 0.3 Basophils % (0.0 - 2.0 %) 0 Absolute Granulocytes (1.4 - 6.5 /CUMM) 10.2 H Segmented Neutrophils (42.2 - 75.2 %) 87 H Band Neutrophils (0.0 - 5.0 %) 7 H Absolute Lymphocytes (1.2 - 3.4 /CUMM) 0.2 L Lymphocytes (20.5 - 51.1 %) 3 L Monocytes (1.7 - 9.3 %) 3 Absolute Monocytes (0.10 - 0.60 /CUMM) 0.2 Absolute Eosinophils (0.0 - 0.7 /CUMM) 0 Absolute Basophils (0.0 - 0.2 /CUMM) 0 Platelet Estimate (ADEQUATE) ADEQUATE Normocytic RBCs VERIFIED Normochromic RBCs VERIFIED PUBS MCHC (33.0 - 37.0 G/DL) 33.6 Urines Urinalysis MOD H Urine Color (YEL,AMB,STR) YEL Urine Clarity (CLEAR) CLEAR Urine pH (5.0 - 8.0) 6.0 Ur Specific [place] (1.001 - 1.035) 1.015 Urine Protein (NEG,<30 MG/DL) TRACE H Urine Ketones (NEG) NEG Urine Nitrite (NEG) NEG Urine Bilirubin (NEG) NEG Urine Urobilinogen (0.1 - 1.0 EU/dl) 0.2 Ur Leukocyte Esterase (NEG) NEG Ur Microscopic SEDIMENT EXAMINED Urine RBC (0 - 5 /HPF) RARE Urine WBC (0 - 2 /HPF) RARE Ur Epithelial Cells (NONE,FEW) FEW Urine Mucus (FEW,NONE) MOD H Urine Hemoglobin (NEG) NEG Urine Glucose (N MG/DL) >=1000 H Assessment/Plan Assessment/Recommendations: ASSESSMENT: 1. Chronic Anemia -- Is receiving iron infusions. 2. Blood in Stool -- Patient with diarrheal stools and fresh blood. ? Due to infectious colitis, or hemorrhoidal bleeding in the setting of increased frequency of stools. 3. ADHD 4. History of Colonic Polyps 5. Diverticulosis 6. History of N/V/Diarrhea -- ? infectious colitis, now resolving. 7. Aspiration Pneumonia Patient has had chronic anemia with thorough workup including multiple EGD and Colonoscopies as well as a video capsule endoscopy. Patient has seen a mortgage loan officer and is currently getting iron infusions. I do not know what her last H/H was after iron infusion. Currently Ms. Escalante and her have a well-defined treatment and evaluation plan with regard to her anemia. Her last EGD and Colonoscopy were in January of this year. Although she may have had some blood loss related to her current bout of diarrhea and may in fact have had an infectious colitis, despite, the negative stool cultures, it is unlikely that repeat colonoscopy will contribute much to her overall evaluation. RECOMMENDATIONS: 1. Continue antibiotics 2. Follow serial CBC, CMP, and check PT/INR 3. Obtain records from Dr. Lemus regarding last H/H and hematologic work up that was done 4. Given concerns regarding pneumonia and respiratory distress as well as the fact that bleeding is not clinically nor hemodynamically significant would defer EGD and Colonoscopy at this time. 5. Repeat CXR Consult Acknowledgment - Thank you for your consult request.
--- NOTE | 2017-12-02 15:54 | Event Note ---
Event Note Event Note: 01/2017 -colonoscopy Rectal Exam: Normal rectal exam. Procedure: The colonoscope was passed with ease through the anus under direct visualization; it was extended to the cecum, confirmed by appendiceal orifice and ileocecal valve. The scope was withdrawn and the mucosa was carefully examined. The patient''s toleration of the procedure was good. The views were fair. The colonic washout prep was not completely adequate as there was some retained vegetable matter in sigmoid and distal left colon. Retroflexion was performed in the rectum. Findings: There was evidence of diverticulosis in thedescending colon and sigmoid colon. There was no evidence of polyps, tumors, or blood in the colon. Internal hemorrhoids were found. Complications: There were no complications associated with the procedure. Impressions: Diverticulosis found in the descending colon and sigmoid colon. Internal hemorrhoids found. Diverticulosis, NO polps nor sourc identified for anemia. However, retained stool in sigmoid. Estimated Blood Loss: None. Post Procedure Diagnosis: Recommendations: Avoid all non-steroidal anti-inflammatory drugs (NSAID''s) including but not limited to Ibuprofen, Advil, Motrin, and Nuprin. Continue current medications. Follow-up appointment with attending physician. Lab studies ordered: CBC with platelets. Follow-up on the results of the biopsy specimens. Procedure Codes: 79090 - colonoscopy 01/2017 - EGD Impressions: The GE junction was visualized. Biopsy taken. Prominent superficial flat vein of distal esophagus. Normal remaining esophagus. A nodules were found in the antrum. Biopsy taken. Normal fundus, body of the stomach, and cardia. Normal duodenal bulb, 2nd portion of the duodenum, 3rd portion of the duodenum, and 4th portion of the duodenum. Four biopsies taken. Recommendations: Avoid all non-steroidal anti-inflammatory drugs (NSAID''s) including but not limited to Ibuprofen, Advil, Motrin, and Nuprin. Anti-reflux measures: Raise the head of the bed 4 to 6 inches. Avoid smoking. Avoid excess coffee, tea or other Avoid eating before bed. Continue current medications. Follow-up appointment with attending physician. BIOPSY - SURGICAL PATHOLOGY REPORT Melony Mayes M.D. FINAL DIAGNOSIS 1) DUODENUM, BIOPSY: - DUODENAL MUCOSA WITH FOCAL SLIGHTLY INCREASED INTRAEPITHELIAL LYMPHOCYTES AND ESSENTIALLY WELL PRESERVED VILLOUS ARCHITECTURE, SEE NOTE Note: The findings are nonspecific which can occur in mild celiac disease as well as other diverse settings such as other food sensitivities, humoral immune deficiencies, crohns disease, morbid obesity, infectious enteritis, H. pylori gastritis, drugs and autoimmune disorders; however, no specific cause is evident in many cases. 2) DUODENUM, BULB, BIOPSY: - DUODENAL MUCOSA WITH FOCAL GASTRIC SURFACE FOVEOLAR METAPLASIA AND MILD INFLAMMATORY REACTIVE CHANGES, SEE NOTE - NEGATIVE FOR GIARDIA OR CELIAC DISEASE Note: The biopsy shows gastric surface metaplasia and mild inflammatory/reactive changes. These features are non- specific, but may be seen in the setting of peptic duodenitis or medication- induced mucosal injury (especially NSAIDs). 3) STOMACH, BIOPSY: - GASTRIC OXYNTIC MUCOSA WITH MILD NON-SPECIFIC CHRONIC GASTRITIS AND PROTON PUMP INHIBITOR THERAPY EFFECT - NO GASTRIC ANTRAL MUCOSA IDENTIFIED - IMMUNOSTAIN FOR HELICOBACTER PYLORI IS NEGATIVE 4) GASTROESOPHAGEAL JUNCTION, BIOPSY: - SQUAMOCOLUMNAR JUNCTIONAL MUCOSA WITH FOVEOLAR HYPERPLASIA CONSISTENT WITH CHANGES OF GASTROESOPHAGEAL REFLUX DISEASE - NEGATIVE FOR INTESTINAL METAPLASIA FINAL DIAGNOSIS 1) DUODENUM, BIOPSY: LYMPHOCYTES AND ESSENTIALLY WELL PRESERVED VILLOUS ARCHITECTURE, SEE NOTE Note: The findings are nonspecific which can occur in mild celiac disease as well as other diverse settings such as other food sensitivities, humoral immune deficiencies, crohns disease, morbid obesity, infectious enteritis, H. pylori gastritis, drugs and autoimmune disorders; however, no specific cause is evident in many cases. 2) DUODENUM, BULB, BIOPSY: INFLAMMATORY REACTIVE CHANGES, SEE NOTE Note: The biopsy shows gastric surface metaplasia and mild inflammatory/ reactive changes. These features are non-specific, but may be seen in the setting of peptic duodenitis or medication-induced mucosal injury (especially NSAIDs). 3) STOMACH, BIOPSY: PROTON PUMP INHIBITOR THERAPY EFFECT 4) GASTROESOPHAGEAL JUNCTION, BIOPSY: WITH CHANGES OF GASTROESOPHAGEAL REFLUX DISEASE Iron and TIBC Ref Range & Units 07/29/17 12:47 PM 06/17/17 10:45 AM Iron 50 - 170 ug/dL 106 95 Iron Saturation 15 - 50 % 26 18 TIBC 250 - 450 ug/dL 412 525 (H)
[2017-12-02 16:21] LABS: ABSOLUTE BASOPHIL COUNT 0 /CUMM (0.0-0.2); ABSOLUTE EOSINOPHIL COUNT 0.1 /CUMM (0.0-0.7); ABSOLUTE GRANULOCYTE CT 4.3 /CUMM (1.4-6.5); ABSOLUTE LYMPH COUNT 0.6 /CUMM (1.2-3.4); ABSOLUTE MONOCYTE COUNT 0.3 /CUMM (0.10-0.60); BASOPHIL % 0.3 % (0.0-2.0); EOSINOPHIL % 1.7 % (0-5); GRANULOCYTE % 81.3 % (42.2-75.2); HEMATOCRIT 26.8 % (37-47); MEAN CORPUSCULAR HGB 30.4 PG (27.0-31.0); MEAN CORPUSCULAR HGB CONC 33.6 G/DL (33.0-37.0); MEAN CORPUSCULAR VOLUME 90.3 FL (81.0-99.0); MEAN PLATELET VOLUME 9.5 FL (7.4-10.4); PLATELET COUNT 203 /CUMM (130-400); RBC DISTRIBUTION WIDTH 13.3 % (11.5-14.5); RED BLOOD CELL CT 2.97 /CUMM (4.20-5.40); WHITE BLOOD CELL COUNT 5.3 /CUMM (4.8-10.8)
[2017-12-02 23:05] VITALS: BP 148/60
--- NOTE | 2017-12-02 23:59 | Event Note ---
Event Note Event Note: SITUATION Acute desaturation to 85% on RA requiring 5L of oxygen Brief Patient is a 72 YO F with PMH significant for asthma, diastolic failure admitted with lower lobe pneumonia and started getting treated with IV Unasyn. As she was found to have lactic acidosis with non-anion gap metabolic acidosis at the time of admission her Lasix was on hold and she was started on fluids. She received so far 5 L of fluids resulted in positive balance. She woke up in the evening and found acutely desaturating with significant wheezing. She was transitioned to commode and became more short of breath and desaturated to 85% while on room air. She was started on 5 L of oxygen initially, TRC requested. Physical exam General appearance: Moderate to severe distress, alert and oriented Heart: S1-S2 normal Lungs: Wheezing throughout with bibasilar crackles Lower extremities: Pulses 2+ without any edema Assessment Patient is a 72-year-old with history of diastolic heart failure was admitted with sepsis secondary to left lower lobe pneumonia with eventual hydration with 5 L of fluid. Her Lasix was held since admission. I think patient is landing in pulmonary vascular congestion resulting in cardiac asthma and wheezing due to reasons stated prior. Of note: patient is off DVT prophylaxis due to blood in stools. Plan Fluids were discontinued immediately. Provided Oxygen supplementation with nebulization therapy at bedside. Chest x-ray is requested and she was placed on a Harmon catheter to measure her response to Lasix. K is 3.7 this am and this could potentially be worsened by Lasix so a dose of 40 mEq potassium is given. ABG did show respiratory alkalosis with 7.42/24/85/15. After nebulization her oxygen requirement dropped down to 3 L. We will obtain a D-dimer level. If hypoxia persists eventually requires VQ scan given her CKD stageIII limiting CTangio. Follow up with [facility] in am for monitoring K and mag
[2017-12-03 00:50] LABS: ABSOLUTE BASOPHIL COUNT 0 /CUMM (0.0-0.2); ABSOLUTE EOSINOPHIL COUNT 0.1 /CUMM (0.0-0.7); ABSOLUTE GRANULOCYTE CT 5.4 /CUMM (1.4-6.5); ABSOLUTE MONOCYTE COUNT 0.3 /CUMM (0.10-0.60); BASOPHIL % 0.1 % (0.0-2.0); EOSINOPHIL % 1.3 % (0-5); GRANULOCYTE % 79.3 % (42.2-75.2); HEMATOCRIT 28.3 % (37-47); MEAN CORPUSCULAR HGB 30.5 PG (27.0-31.0); MEAN CORPUSCULAR HGB CONC 34.4 G/DL (33.0-37.0); MEAN CORPUSCULAR VOLUME 88.4 FL (81.0-99.0); MEAN PLATELET VOLUME 8.6 FL (7.4-10.4); PLATELET COUNT 225 /CUMM (130-400); RBC DISTRIBUTION WIDTH 12.9 % (11.5-14.5); WHITE BLOOD CELL COUNT 6.8 /CUMM (4.8-10.8)
[2017-12-03 01:04] VITALS: BP 124/72
[2017-12-03 01:57] LABS: PT 13.1 SEC (9.4-12.5)
--- NOTE | 2017-12-03 02:47 | RADIOLOGY REPORT ---
EXAMINATION: XR PORTABLE CHEST CLINICAL INFORMATION: Presenting with pneumonia. Requiring oxygen. Evaluate for fluid overload. COMPARISON: Chest radiograph dated 12/01/2017. TECHNIQUE: Portable frontal view of the chest was obtained. FINDINGS: There is diffuse interstitial prominence relative to the recent prior exam. There is new blunting the costophrenic angles suggesting evolving trace pleural effusions. Cardiac mediastinal silhouette is prominent but stable. No pneumothorax. No acute osseous abnormalities. IMPRESSION: New diffuse interstitial prominence with findings suggestive of trace bilateral pleural effusions and a prominent cardiac silhouette, together concerning for pulmonary edema.
--- NOTE | 2017-12-03 04:30 | Discharge Summary ---
Visit Information Visit Dates Admission Date: 12/01/17 Hospital Course Course Attending Physician: Fahad Ramsey MD Primary Care Physician: Madison GRAY,Umu Min Allergies: Coded Allergies: NO KNOWN ALLERGIES (12/29/16) Discharge Instructions General Discharge Information Code Status: Full Code Attending MD Review Statement Documenting Attending: Luis Alfredo David MD
[2017-12-03 06:30] VITALS: BP 134/68
--- NOTE | 2017-12-03 08:38 | PN- Housestaff ---
Noe GRAY,Osman 12/03/17 0838: Subjective Follow-up For: Acute gastroenteritis, possible viral Left lower lobe pneumonia under evaluation, possibility for aspiration Acute on chronic CHF secondary to fluid overload Tele-Events Since Last Visit: No any overnight events Subjective: Patient is seen and examined at the bedside. According to her, she started having shortness of breath yesterday evening, she needed oxygen to maintain her saturation. After the dose of Lasix. She become comfortable. She also had fever, in night. She is feeling much comfortable now. Review of Systems Constitutional: Reports: no symptoms, weakness. Objective Last 24 Hrs of Vital Signs/I&O Vital Signs Date Time Temp Pulse Resp B/P B/P Pulse O2 O2 Flow FiO2 Mean Ox Delivery Rate 12/03 0800 97 Nasal 1.0L Cannula 12/03 0630 99.0 80 20 134/68 97 Nasal 1.0L Cannula 12/03 0312 99.7 12/03 0111 101.4 12/03 0104 101.4 124/72 12/03 0030 96 Nasal 3.0L Cannula 12/03 0001 96 Nasal 3.0L Cannula 12/03 0000 96 Nasal 3.0L Cannula 12/02 2305 98.7 91 16 148/60 95 Nasal 5.0L Cannula 12/02 1454 99.7 82 24 130/70 95 Room Air Intake & Output 12/03 1600 12/03 0800 12/03 0000 Intake Total 225 1000 Output Total 1800 500 Balance -1575 500 Intake, IV 125 800 Intake, Oral 100 200 Number 2 Bowel Movements Output, Urine 1800 500 Physical Exam General Appearance: Alert, Oriented X3, Cooperative, No Acute Distress Neck: JVD Cardiovascular: Normal S1, Normal S2 Lungs: bilateral basilar crackles, left more than the right side Abdomen: Soft, No Tenderness Neurological: Normal Speech Extremities: No Clubbing, No Cyanosis, No Edema Vascular: Normal Pulses, Pulses Symmetrical Current Medications: Current Medications Sig/Leslie Start time Last Medication Dose Route Stop Time Status Admin Acetaminophen 650 MG .STK-MED ONE 12/03 0111 DC PO 12/03 0112 Acetaminophen 650 MG Q4P PRN 12/01 1600 AC 12/03 PO 0111 Albuterol Sulfate 3 ML ONCE ONE 12/03 0015 DC 12/03 INH 12/03 0016 0014 Ampicillin Sodium/ 1,500 MG Q8 12/01 0600 AC 12/03 Sulbactam Sodium IV 0856 Sodium Chloride 100 ML Aspirin Buffered 81 MG DAILY 12/01 1000 DC 12/02 PO 1147 Buspirone HCl 10 MG DAILY 12/01 1000 AC 12/03 PO 0855 Furosemide 20 MG ONCE ONE 12/03 0300 DC 12/03 IV 12/03 0301 0312 Furosemide 20 MG ONCE ONE 12/03 0045 DC 12/03 IV 12/03 0046 0109 Furosemide 40 MG .STK-MED ONE 12/03 0038 DC IV 12/03 0039 Heparin Sodium 5,000 UNIT Q8 12/01 0600 DC 12/02 (Porcine) SC 0554 Insulin Aspart 0 TIDAC 12/02 1200 AC 12/03 SC 0758 Lactobacillus 1 CAP BID 12/02 1000 AC 12/03 Acidophilus PO 0855 Magnesium Chloride 64 MG ONCE ONE 12/03 0500 DC 12/03 PO 12/03 0501 0508 Magnesium Sulfate 1 GM ONCE ONE 12/03 0845 AC 12/03 Dextrose/Water 100 ML IV 12/03 1244 1018 Magnesium Sulfate 1 GM ONCE ONE 12/03 0515 DC 12/03 Dextrose/Water 100 ML IV 12/03 0914 0531 Nitroglycerin 0.5 GM ONCE ONE 12/03 0430 CAN TOP 12/03 0431 Pantoprazole Sodium 40 MG DAILY 12/01 0430 AC 12/03 IV 0855 Potassium Chloride 40 MEQ ONCE ONE 12/03 0600 DC 12/03 PO 12/03 0601 0557 Potassium Chloride 40 MEQ ONCE ONE 12/03 0130 DC 12/03 PO 12/03 0131 0144 Sodium Chloride 1,000 ML .Q10H 12/01 0315 DC 12/02 IV 1800 Last 24 Hrs of Lab/Gutierrez Results Last 24 Hrs of Labs/Mics: Laboratory Tests 12/03/17 0305: Anion Gap 14, Estimated GFR 44 L, BUN/Creatinine Ratio 8.3, Magnesium 0.8 *L, Total Bilirubin 0.3, Direct Bilirubin 0.3, AST 53 H, ALT 49, Alkaline Phosphatase 28, Troponin I 0.03, Acw-W-Hlgoxulretw Pept 2230 H, Total Protein 6.3, Albumin 3.4 L 12/03/17 0125: PT 13.1 H, INR 1.25 H, D-Dimer High Sensitivty 403 H 12/03/17 0115: pH 7.42, pCO2 24 L, pO2 85, HCO3 15 L, ABG O2 Sat (Measured) 94.0 L, P-50 ( Temp Corrected) Y, Carboxyhemoglobin 0.7 L, O2 Concentration % 3 LPM, Temperature 101.4 H, O2 Delivery Method N/C, Phlebotomy Draw Site RIGHT RADIAL 12/03/17 0015: CBC w Diff NO MAN DIFF REQ, RBC 3.20 L, MCV 88.4, MCH 30.5, RDW 12.9, MPV 8.6, Gran % 79.3 H, Lymphocytes % 14.8 L, Monocytes % 4.5, Eosinophils % 1.3, Basophils % 0.1, Absolute Granulocytes 5.4, Absolute Lymphocytes 1.0 L, Absolute Monocytes 0.3, Absolute Eosinophils 0.1, Absolute Basophils 0, PUBS MCHC 34.4 12/02/17 1654: PT Cancelled, INR Cancelled 12/02/17 1400: CBC w Diff NO MAN DIFF REQ, RBC 2.97 L, MCV 90.3, MCH 30.4, RDW 13.3, MPV 9.5, Gran % 81.3 H, Lymphocytes % 11.4 L, Monocytes % 5.3, Eosinophils % 1.7, Basophils % 0.3, Absolute Granulocytes 4.3, Absolute Lymphocytes 0.6 L, Absolute Monocytes 0.3, Absolute Eosinophils 0.1, Absolute Basophils 0, PUBS MCHC 33.6 Microbiology 12/03 0325 BLOOD: Blood Culture - RECD 12/03 304 BLOOD: Blood Culture - RECD Assessment/Plan Assessment: Patient is a 72-year-old female with significant past medical history of asthma, ADHD, hypertension, stage III, diastolic failure, diabetes, nephrolithiasis, iron deficiency anemia, cirrhosis of the liver, UTI in May 2017, type 2 diabetes presented with chief complaints of acute episode of diarrhea associated with nausea and vomiting followed by syncopal episodes since one day. ED course -vital signs temperature 101.5, pulse 118, respiratory rate 20, blood pressure 174/82, SPO2 95% on room air. Blood workup showed hemoglobin 12 point 3 , hematocrit 30 6.5, platelet count 298, and sat 90 5.5, lymphocyte 2.1, and 77, serum sodium 142, potassium 4.1, chloride 113, anion gap 13, BUN 23, creatinine 1.1, GFR 49, lactic acid 3.3. Flu test was negative, blood cultures, stool cultures were taken. Chest x-ray showed streaky basilar opacity to nurse left heart border. Suspicion for pneumonia. Patient was admitted to general medicine floor, for treatment of left lower lobe pneumonia. She was started on Unasyn, IV fluids, and antacid. Acute on chronic CHF with preserved ejection fraction - * We stopped IV fluids * She was already given injection Lasix 20 milligrams followed by urine output of 1800CC. * We will follow cardiology rcms. Left lower lobe Pneumonia, possible aspiration, associated viral gastroenteritis - * We'll continue Unasyn * strict intake output charting * Orthostatic blood pressure * GENI, is still there probably due to effects of lasix. * Will follow blood cultures. Lower GI bleed * Its improved * She had 4 bowel movements in night, denies blood * We will follow CBC, as needed. type2 DM - * Blood sugar measurement 3 times a day/at bedtime * NovoLog according to the sliding scale Diet -consistent carbohydrate 2. Diet CODE STATUS-full code DVT prophylaxis-ALP S/heparin Problem List: 1. Viral gastroenteritis 2. Pneumonia Pain Ratin Pain Location: abdoman Pain Goal: Remain pain free Pain Plan: Avoid NSAIDs Tomorrow's Labs & Rationales: f/u CBC, BEP DVT/Prophylaxis: mechanical Roxy GRAY,Fahad 12/03/17 1246: Attending MD Review Statement Attending Statement Attending MD Statement: examined this patient, discuss w/resident/PA/DENTAL SPECIALIST, agreed w/resident/PA/DENTAL SPECIALIST, reviewed EMR data (avail), discussed with nursing, discussed with case mgmt, amended to note Attending Assessment/Plan: Patient seen and examined. Apparently overnight he developed respiratory distress and was acutely hypoxic. Repeat chest x-ray showed evidence of volume congestion. She was diuresed intravenously and is clinically doing much better. She reports feeling much better. She is currently saturating 97% on 1 L of oxygen. Patient also reports that her diarrhea is improving. Currently denies cough or shortness of breath. Denies palpitations. On examination she has adequate air entry bilaterally mildly diminished in lung bases with no other sounds. Abdomen soft and nontender and she has no peripheral edema. She has no rash on examination. Problems: 1. Acute hypoxic respiratory failure; now improving. Likely secondary to volume overload 2. Gastrointestinal bleeding; likely due to hemorrhoids. Mild blood streak was noted by nursing staff however stool guaiac was negative. Hemoglobin level is stable. 3. Fever; ? secondary to viral gastroenteritis versus pneumonia Plan: -No further gastrointestinal bleeding noted. Hemoglobin level is stable. Hold off further GI workup for now. -Despite negative blood cultures, patient remains febrile. Chest x-ray shows interstitial prominence suggestive of trace bilateral effusion and no overt consolidation. Influenza screen is negative follow-up repeat blood cultures obtain stool studies if diarrhea reoccurs. If fever persists we will obtain an ID consult
--- NOTE | 2017-12-03 14:03 | PN- Gastroenterology ---
Assessment/Plan Assessment/Recommendations: ASSESSMENT: 1. Chronic Anemia -- Is receiving iron infusions as an outpatient. 2. Blood in Stool -- Likely hemorrhoidal bleeding in the setting of increased frequency of stools. 3. ADHD 4. History of Colonic Polyps 5. Diverticulosis 6. History of N/V/Diarrhea -- ? infectious colitis, now resolving. 7. Aspiration Pneumonia 8. Desaturation due to Fluid Overload -- Diuresed overnight. Patient with stable H/H and no clinically significant GI bleeding. Given patient's cardiopulmonary problems (congestive heart failure, fluid overload and possible aspiration pneumonia) as well as the fact that she had a complete GI evaluation for blood loss, further endoscopic workup should be deferred to the outpatient setting unless there is clinically and hemodynamically significant bleeding. RECOMMENDATIONS: 1. Continue antibiotics 2. Follow serial CBC, CMP, and check PT/INR 3. Obtain records from Dr. Lemus regarding last H/H and hematologic work up that was done 4. Given concerns regarding pneumonia and respiratory distress as well as the fact that bleeding is not clinically nor hemodynamically significant would defer EGD and Colonoscopy at this time. 5. Repeat CXR 6. GI will sign off for now as there is no clinically or hemodynamically significant GI bleeding We do not plan any endoscopic intervention at this time. Her low grade temp is likely related to aspiration rathern than her infectious diarrhea which is clearly resolving. Please do not hesitate to contact us as needed. Subjective Subjective: Patient had episode of shortness of breath with desaturation to 85% due to fluid overload last night. Received IV lasix and is now more comfortable. Has had no further blood in stool. She feels that bleeding was hemorrhoidal. She reports that she is having less frequent stools and they are becoming more formed. She has an appointment with her hoisting engineer pile driving in 2 weeks. Objective Vital Signs and I&Os Vital Signs Date Time Temp Pulse Resp B/P B/P Pulse O2 O2 Flow FiO2 Mean Ox Delivery Rate 12/03 0800 97 Nasal 1.0L Cannula 12/03 0630 99.0 80 20 134/68 97 Nasal 1.0L Cannula 12/03 0312 99.7 12/03 0111 101.4 12/03 0104 101.4 124/72 12/03 0030 96 Nasal 3.0L Cannula 12/03 0001 96 Nasal 3.0L Cannula 12/03 0000 96 Nasal 3.0L Cannula 12/02 2305 98.7 91 16 148/60 95 Nasal 5.0L Cannula 12/02 1454 99.7 82 24 130/70 95 Room Air Intake & Output 12/03 1600 12/03 0400 12/02 1600 12/02 0400 12/01 1600 12/01 0400 Intake Total 225 1000 1200 1200 1850 3000 Output Total 1800 500 650 800 500 Balance -9903 579 3145 550 1050 2500 Intake, IV 824 132 0353 1200 1650 3000 Intake, Oral 100 200 0 200 Number 2 3 5 6 Bowel Movements Output, Stool 500 Output, Urine 1800 500 650 800 Patient 145 lb 115 lb Weight Weight Reported by Patient Measurement Method Physical Exam General Appearance: well developed/nourished, no apparent distress Respiratory: lungs clear Cardiovascular: regular rate/rhythm Abdomen: normal bowel sounds, soft, non-tender Neurologic/Psychiatric: awake, alert Skin: intact, normal color, warm/dry Current Medications: Current Medications Sig/Leslie Start time Last Medication Dose Route Stop Time Status Admin Acetaminophen 650 MG .STK-MED ONE 12/03 0111 DC PO 12/03 0112 Acetaminophen 650 MG Q4P PRN 12/01 1600 AC 12/03 PO 0111 Albuterol Sulfate 3 ML ONCE ONE 12/03 0015 DC 12/03 INH 12/03 0016 0014 Ampicillin Sodium/ 1,500 MG Q8 12/01 0600 AC 12/03 Sulbactam Sodium IV 0856 Sodium Chloride 100 ML Aspirin Buffered 81 MG DAILY 12/01 1000 DC 12/02 PO 1147 Buspirone HCl 10 MG DAILY 12/01 1000 AC 12/03 PO 0855 Furosemide 20 MG ONCE ONE 12/03 0300 DC 12/03 IV 12/03 0301 0312 Furosemide 20 MG ONCE ONE 12/03 0045 DC 12/03 IV 12/03 0046 0109 Furosemide 40 MG .STK-MED ONE 12/03 0038 DC IV 12/03 0039 Heparin Sodium 5,000 UNIT Q8 12/01 0600 DC 12/02 (Porcine) SC 0554 Insulin Aspart 0 TIDAC 12/02 1200 AC 12/03 SC 1218 Lactobacillus 1 CAP BID 12/02 1000 AC 12/03 Acidophilus PO 0855 Magnesium Chloride 64 MG ONCE ONE 12/03 0500 DC 12/03 PO 12/03 0501 0508 Magnesium Sulfate 1 GM ONCE ONE 12/03 0845 DC 12/03 Dextrose/Water 100 ML IV 12/03 1244 1018 Magnesium Sulfate 1 GM ONCE ONE 12/03 0515 DC 12/03 Dextrose/Water 100 ML IV 12/03 0914 0531 Nitroglycerin 0.5 GM ONCE ONE 12/03 043 CAN TOP 12/03 043 Pantoprazole Sodium 40 MG DAILY 12/01 0430 AC 12/03 IV 0855 Potassium Chloride 40 MEQ ONCE ONE 12/03 0600 DC 12/03 PO 12/03 0601 0557 Potassium Chloride 40 MEQ ONCE ONE 12/03 013 DC 12/03 PO 12/03 0131 0144 Sodium Chloride 1,000 ML .Q10H 12/01 0315 DC 12/02 IV 1800 Results Pertinent Lab Results: Laboratory Tests 12/03 12/03 12/03 0305 0125 0115 Blood Gas pH (7.35 - 7.45 PH) 7.42 pCO2 (35 - 45 TORR) 24 L pO2 (80 - 100 TORR) 85 HCO3 (21 - 28 MEQ/L) 15 L ABG O2 Sat (Measured) (>96.0 %) 94.0 L P-50 (Temp Corrected) Y Carboxyhemoglobin (1.5 - 5.0 %) 0.7 L O2 Concentration % 3 LPM Temperature (97.0 - 100.0 FARH) 101.4 H O2 Delivery Method N/C Chemistry Sodium (137 - 145 mmol/L) 142 Potassium (3.5 - 5.1 mmol/L) 3.5 Chloride (98 - 107 mmol/L) 111 H Carbon Dioxide (22 - 30 mmol/L) 17 L Anion Gap (5 - 16) 14 BUN (7 - 17 mg/dL) 10 Creatinine (0.5 - 1.0 mg/dL) 1.2 H Estimated GFR (>60 ml/min) 44 L BUN/Creatinine Ratio (7 - 25 %) 8.3 Magnesium (1.6 - 2.3 mg/dL) 0.8 *L Total Bilirubin (0.2 - 1.3 mg/dL) 0.3 Direct Bilirubin (< 0.4 mg/dL) 0.3 AST (14 - 36 U/L) 53 H ALT (9 - 52 U/L) 49 Alkaline Phosphatase (<127 U/L) 28 Troponin I (< 0.11 ng/ml) 0.03 Elw-U-Wrtygqnaavt Pept (<125 pg/mL) 2230 H Total Protein (6.3 - 8.2 g/dL) 6.3 Albumin (3.5 - 5.0 g/dL) 3.4 L Coagulation PT (9.4 - 12.5 SEC) 13.1 H INR (0.90 - 1.19) 1.25 H D-Dimer High Sensitivty (0 - 243 ng/ml) 403 H Miscellaneous Phlebotomy Draw Site RIGHT RADIAL 12/03 12/02 0015 1654 Coagulation PT Cancelled INR Cancelled Hematology CBC w Diff NO MAN DIFF REQ WBC (4.8 - 10.8 /CUMM) 6.8 RBC (4.20 - 5.40 /CUMM) 3.20 L Hgb (12.0 - 16.0 G/DL) 9.8 L Hct (37 - 47 %) 28.3 L MCV (81.0 - 99.0 FL) 88.4 MCH (27.0 - 31.0 PG) 30.5 RDW (11.5 - 14.5 %) 12.9 Plt Count (130 - 400 /CUMM) 225 MPV (7.4 - 10.4 FL) 8.6 Gran % (42.2 - 75.2 %) 79.3 H Lymphocytes % (20.5 - 51.1 %) 14.8 L Monocytes % (1.7 - 9.3 %) 4.5 Eosinophils % (0 - 5 %) 1.3 Basophils % (0.0 - 2.0 %) 0.1 Absolute Granulocytes (1.4 - 6.5 /CUMM) 5.4 Absolute Lymphocytes (1.2 - 3.4 /CUMM) 1.0 L Absolute Monocytes (0.10 - 0.60 /CUMM) 0.3 Absolute Eosinophils (0.0 - 0.7 /CUMM) 0.1 Absolute Basophils (0.0 - 0.2 /CUMM) 0 PUBS MCHC (33.0 - 37.0 G/DL) 34.4 12/02 12/02 1400 0618 Chemistry Sodium (137 - 145 mmol/L) 145 Potassium (3.5 - 5.1 mmol/L) 3.7 Chloride (98 - 107 mmol/L) 117 H Carbon Dioxide (22 - 30 mmol/L) 16 L Anion Gap (5 - 16) 12 BUN (7 - 17 mg/dL) 13 Creatinine (0.5 - 1.0 mg/dL) 1.1 H Estimated GFR (>60 ml/min) 49 L BUN/Creatinine Ratio (7 - 25 %) 11.8 Total Bilirubin (0.2 - 1.3 mg/dL) 0.2 Direct Bilirubin (< 0.4 mg/dL) 0.2 AST (14 - 36 U/L) 66 H ALT (9 - 52 U/L) 55 H Alkaline Phosphatase (<127 U/L) 22 Total Protein (6.3 - 8.2 g/dL) 5.5 L Albumin (3.5 - 5.0 g/dL) 2.9 L Hematology CBC w Diff NO MAN DIFF REQ NO MAN DIFF REQ WBC (4.8 - 10.8 /CUMM) 5.3 4.3 L RBC (4.20 - 5.40 /CUMM) 2.97 L 2.99 L Hgb (12.0 - 16.0 G/DL) 9.0 L 9.0 L Hct (37 - 47 %) 26.8 L 27.1 L MCV (81.0 - 99.0 FL) 90.3 90.7 MCH (27.0 - 31.0 PG) 30.4 30.2 RDW (11.5 - 14.5 %) 13.3 13.1 Plt Count (130 - 400 /CUMM) 203 202 MPV (7.4 - 10.4 FL) 9.5 8.9 Gran % (42.2 - 75.2 %) 81.3 H 77.4 H Lymphocytes % (20.5 - 51.1 %) 11.4 L 16.2 L Monocytes % (1.7 - 9.3 %) 5.3 4.5 Eosinophils % (0 - 5 %) 1.7 1.6 Basophils % (0.0 - 2.0 %) 0.3 0.3 Absolute Granulocytes (1.4 - 6.5 /CUMM) 4.3 3.3 Absolute Lymphocytes (1.2 - 3.4 /CUMM) 0.6 L 0.7 L Absolute Monocytes (0.10 - 0.60 /CUMM) 0.3 0.2 Absolute Eosinophils (0.0 - 0.7 /CUMM) 0.1 0.1 Absolute Basophils (0.0 - 0.2 /CUMM) 0 0 PUBS MCHC (33.0 - 37.0 G/DL) 33.6 33.3 12/01 12/01 12/01 1440 1205 0718 Chemistry Sodium (137 - 145 mmol/L) 142 Potassium (3.5 - 5.1 mmol/L) 4.1 Chloride (98 - 107 mmol/L) 113 H Carbon Dioxide (22 - 30 mmol/L) 17 L Anion Gap (5 - 16) 13 BUN (7 - 17 mg/dL) 23 H Creatinine (0.5 - 1.0 mg/dL) 1.1 H Estimated GFR (>60 ml/min) 49 L BUN/Creatinine Ratio (7 - 25 %) 20.9 Lactic Acid (0.7 - 2.1 mmol/L) Cancelled 1.5 2.4 H Troponin I (< 0.11 ng/ml) < 0.01 Hematology CBC w Diff MAN DIFF ORDERED WBC (4.8 - 10.8 /CUMM) 5.2 RBC (4.20 - 5.40 /CUMM) 3.29 L Hgb (12.0 - 16.0 G/DL) 10.1 L Hct (37 - 47 %) 29.8 L MCV (81.0 - 99.0 FL) 90.5 MCH (27.0 - 31.0 PG) 30.7 RDW (11.5 - 14.5 %) 13.2 Plt Count (130 - 400 /CUMM) 236 MPV (7.4 - 10.4 FL) 9.2 Segmented Neutrophils (42.2 - 75.2 %) 61 Band Neutrophils (0.0 - 5.0 %) 33 H Lymphocytes (20.5 - 51.1 %) 4 L Monocytes (1.7 - 9.3 %) 1 L Basophils (0.0 - 2.0 %) 1 Platelet Estimate (ADEQUATE) ADEQUATE Normocytic RBCs VERIFIED Normochromic RBCs VERIFIED PUBS MCHC (33.0 - 37.0 G/DL) 34.0 Toxicology Acetone Level (NEGATIVE) NEGATIVE 12/01 12/01 12/01 12/01 0700 0600 0257 0040 Chemistry Sodium (137 - 145 mmol/L) 139 Potassium (3.5 - 5.1 mmol/L) 4.9 Chloride (98 - 107 mmol/L) 107 Carbon Dioxide (22 - 30 mmol/L) 19 L Anion Gap (5 - 16) 13 BUN (7 - 17 mg/dL) 29 H Creatinine (0.5 - 1.0 mg/dL) 1.2 H Estimated GFR (>60 ml/min) 44 L BUN/Creatinine Ratio (7 - 25 %) 24.2 Glucose (65 - 99 mg/dL) 293 H Hemoglobin A1c (4.2 - 5.8 %) 7.9 H Lactic Acid (0.7 - 2.1 mmol/L) 2.3 H Calcium (8.4 - 10.2 mg/dL) 8.0 L Total Bilirubin (0.2 - 1.3 mg/dL) 0.3 Direct Bilirubin (< 0.4 mg/dL) 0.2 AST (14 - 36 U/L) 40 H ALT (9 - 52 U/L) 34 Alkaline Phosphatase (<127 U/L) 30 Troponin I (< 0.11 ng/ml) Cancelled Cancelled < 0.01 Total Protein (6.3 - 8.2 g/dL) 6.2 L Albumin (3.5 - 5.0 g/dL) 3.5 Amylase (30 - 110 U/L) 76 Lipase (23 - 300 U/L) 382 H 12/01 11/30 0007 2355 Chemistry Lactic Acid (0.7 - 2.1 mmol/L) 3.3 H Hematology CBC w Diff MAN DIFF ORDERED WBC (4.8 - 10.8 /CUMM) 10.6 RBC (4.20 - 5.40 /CUMM) 4.07 L Hgb (12.0 - 16.0 G/DL) 12.3 Hct (37 - 47 %) 36.5 L MCV (81.0 - 99.0 FL) 89.6 MCH (27.0 - 31.0 PG) 30.1 RDW (11.5 - 14.5 %) 12.9 Plt Count (130 - 400 /CUMM) 298 MPV (7.4 - 10.4 FL) 8.8 Gran % (42.2 - 75.2 %) 95.5 H Lymphocytes % (20.5 - 51.1 %) 2.1 L Monocytes % (1.7 - 9.3 %) 2.1 Eosinophils % (0 - 5 %) 0.3 Basophils % (0.0 - 2.0 %) 0 Absolute Granulocytes (1.4 - 6.5 /CUMM) 10.2 H Segmented Neutrophils (42.2 - 75.2 %) 87 H Band Neutrophils (0.0 - 5.0 %) 7 H Absolute Lymphocytes (1.2 - 3.4 /CUMM) 0.2 L Lymphocytes (20.5 - 51.1 %) 3 L Monocytes (1.7 - 9.3 %) 3 Absolute Monocytes (0.10 - 0.60 /CUMM) 0.2 Absolute Eosinophils (0.0 - 0.7 /CUMM) 0 Absolute Basophils (0.0 - 0.2 /CUMM) 0 Platelet Estimate (ADEQUATE) ADEQUATE Normocytic RBCs VERIFIED Normochromic RBCs VERIFIED PUBS MCHC (33.0 - 37.0 G/DL) 33.6 Urines Urinalysis MOD H Urine Color (YEL,AMB,STR) YEL Urine Clarity (CLEAR) CLEAR Urine pH (5.0 - 8.0) 6.0 Ur Specific [place] (1.001 - 1.035) 1.015 Urine Protein (NEG,<30 MG/DL) TRACE H Urine Ketones (NEG) NEG Urine Nitrite (NEG) NEG Urine Bilirubin (NEG) NEG Urine Urobilinogen (0.1 - 1.0 EU/dl) 0.2 Ur Leukocyte Esterase (NEG) NEG Ur Microscopic SEDIMENT EXAMINED Urine RBC (0 - 5 /HPF) RARE Urine WBC (0 - 2 /HPF) RARE Ur Epithelial Cells (NONE,FEW) FEW Urine Mucus (FEW,NONE) MOD H Urine Hemoglobin (NEG) NEG Urine Glucose (N MG/DL) >=1000 H
[2017-12-03 14:17] VITALS: BP 144/64
--- NOTE | 2017-12-03 16:14 | Cons- Cardiology ---
General Information and HPI Consulting Request Date of Consult: 12/03/17 Requested By: Fahad Ramsey MD Reason for Consult: Dyspnea Source of Information: patient, old records Exam Limitations: no limitations History of Present Illness: The patient is a 72-year-old woman with a past medical history of diabetes mellitus, hypertension, chronic congestive heart failure secondary to diastolic dysfunction. She presented to our hospital following 2 syncopal episodes in the setting of severe nausea and general malaise, and was found to have pneumonia and sepsis. Following admission, she received a high-volume resuscitation; however, subsequently had findings for congestive heart failure. The patient had developed symptoms of severe weakness, lightheadedness as well as nausea and diarrhea with vomiting and fever. She had one episode of lightheadedness with loss of consciousness following use of the bathroom, and had recurrence of the same, prompting her emergency room visit. On arrival, the patient was noted to be febrile with a temperature of 101.5 and hypertensive. Her initial lactic acid level was elevated at 3.3, and the diagnosis of sepsis was made. Currently, the patient is asymptomatic from the standpoint of chest pains nor palpitations; however, states having increased fatigue as well as dyspnea with activity. Prior to her arrival, the patient describes being able to perform 4-6 METs of physical activity without difficulty. Allergies/Medications Allergies: Coded Allergies: NO KNOWN ALLERGIES (12/29/16) Home Med List: Albuterol Sulfate (Proair Hfa) 90 MCG HFA.AER.AD 2 PUF INH Q4-6 PRN PRN ASTHMA (Reported) Aspirin (Ecotrin*) 81 MG TABLET.DR 1 TAB PO DAILY HEART (Reported) Atorvastatin Calcium 20 MG TABLET 1 TAB PO DAILY CHOL (Reported) Buspirone HCl 10 MG TABLET 10 MG PO DAILY ANXIETY (Reported) Dextroamphetamine/Amphetamine (Dextroamp-Amphetamine 5 MG Tab) 5 MG TABLET 1 TAB PO DAILY ADHD (Reported) Fenofibrate Nanocrystallized (Fenofibrate) 145 MG TABLET 1 TAB PO DAILY cholestrol (Reported) Furosemide (Lasix) 20 MG TABLET 1 TAB PO DAILY CHF Glimepiride 2 MG TABLET 1 TAB PO DAILY DM (Reported) Hydrochlorothiazide 25 MG TABLET 1 TAB PO DAILY HTN (Reported) Lansoprazole 30 MG CAPSULE.DR 1 CAP PO DAILY GERD (Reported) Losartan (Cozaar) 100 MG TABLET 100 MG PO DAILY HTN (Reported) Metformin HCl 500 MG TABLET 1,000 MG PO BID DM (Reported) Metoprolol Succinate 25 MG TAB 1 TAB PO DAILY HTN (Reported) Sitagliptin Phosphate (Januvia) 100 MG TABLET 1 TAB PO DAILY DM (Reported) Current Medications: Current Medications Sig/Leslie Start time Last Medication Dose Route Stop Time Status Admin Acetaminophen 650 MG .STK-MED ONE 12/03 0111 DC PO 12/03 0112 Acetaminophen 650 MG Q4P PRN 12/01 1600 AC 12/03 PO 0111 Albuterol Sulfate 2 PUF Q4P PRN 12/03 1400 AC INH Albuterol Sulfate 3 ML ONCE ONE 12/03 0015 DC 12/03 INH 12/03 0016 0014 Ampicillin Sodium/ 1,500 MG Q8 12/01 0600 AC 12/03 Sulbactam Sodium IV 1413 Sodium Chloride 100 ML Buspirone HCl 10 MG DAILY 12/01 1000 AC 12/03 PO 0855 Furosemide 20 MG ONCE ONE 12/03 0300 DC 12/03 IV 12/03 0301 0312 Furosemide 20 MG ONCE ONE 12/03 0045 DC 12/03 IV 12/03 0046 0109 Furosemide 40 MG .STK-MED ONE 12/03 0038 DC IV 12/03 0039 Insulin Aspart 0 TIDAC 12/02 1200 AC 12/03 SC 1218 Lactobacillus 1 CAP BID 12/02 1000 AC 12/03 Acidophilus PO 0855 Magnesium Chloride 64 MG ONCE ONE 12/03 0500 DC 12/03 PO 12/03 0501 0508 Magnesium Sulfate 1 GM ONCE ONE 12/03 0845 DC 12/03 Dextrose/Water 100 ML IV 12/03 1244 1018 Magnesium Sulfate 1 GM ONCE ONE 12/03 0515 DC 12/03 Dextrose/Water 100 ML IV 12/03 0914 0531 Nitroglycerin 0.5 GM ONCE ONE 12/03 0430 CAN TOP 12/03 0431 Pantoprazole Sodium 40 MG DAILY 12/01 0430 AC 12/03 IV 0855 Potassium Chloride 40 MEQ ONCE ONE 12/03 0600 DC 12/03 PO 12/03 0601 0557 Potassium Chloride 40 MEQ ONCE ONE 12/03 0130 DC 12/03 PO 12/03 0131 0144 Sodium Chloride 1,000 ML .Q10H 12/01 0315 DC 12/02 IV 1800 Review of Systems Review of Systems: The review of systems is negative for chest pains, palpitations nor lightheadedness. The remainder of the 14 point review of systems is noncontributory with the exception of above. Past History Travel History Traveled to [place] past 21 day No Medical History Neurological: NONE EENT: NONE Cardiovascular: HTN,CHOL Respiratory: asthma Gastrointestinal: NONE Hepatic: NONE Renal: NONE Musculoskeletal: NONE Psychiatric: NONE Endocrine: DM Blood Disorders: NONE Cancer(s): NONE SAND ANALYST/Reproductive: NONE Surgical History Surgical History: non-contributory Family History Relations & Conditions If Any: FATHER, ; Cause: Myocardial infarct. MOTHER, ; Cause: Dementia. Psychosocial History Where Do You Live? Home Who Do You Live With? spouse Services at Home: Oxygen Primary Language: Canadian Smoking Status: Never Smoked ETOH Use: occasional use Illicit Drug Use: denies illicit drug use Functional Ability ADLs Independent: dressing, eating, toileting, bathing. Ambulation: independent IADLs Independent: shopping, housework, finances, food prep, telephone, transportation , medication admin. ECHO Results (as available) EF% 65 Exam & Diagnostic Data Vital Signs and I&O Vital Signs Date Time Temp Pulse Resp B/P B/P Pulse O2 O2 Flow FiO2 Mean Ox Delivery Rate 12/03 1417 97.5 83 18 144/64 99 Room Air 12/03 1356 Nasal 1.0L Cannula 12/03 1356 95 Nasal 1.0L Cannula 12/03 0800 97 Nasal 1.0L Cannula 12/03 0630 99.0 80 20 134/68 97 Nasal 1.0L Cannula 12/03 0312 99.7 12/03 0111 101.4 12/03 0104 101.4 124/72 12/03 0030 96 Nasal 3.0L Cannula 12/03 0001 96 Nasal 3.0L Cannula 12/03 0000 96 Nasal 3.0L Cannula 12/02 2305 98.7 91 16 148/60 95 Nasal 5.0L Cannula Intake & Output 12/03 1600 12/03 0800 12/03 0000 12/02 1600 12/02 0800 12/02 0000 Intake Total 974 143 4218 1200 1200 Output Total 1500 1800 500 650 Balance -600 -6432 936 7353 550 Intake, IV 400 726 476 4944 1200 Intake, Oral 500 100 200 0 Number 3 2 3 5 Bowel Movements Output, Urine 1500 1800 500 650 Physical Exam: General: Nontoxic, no apparent distress. HEENT: Sclera and conjunctiva within normal limits, without xanthelasmas. Neck: Carotids 2+ without bruits. Respiratory: Scattered rhonchi, air movement is good, without accessory respiratory muscle use. Heart: Regular rate and rhythm, without murmurs, without JVD. Abdomen: Soft, nontender, no masses, normoactive bowel sounds. Extremities: Without clubbing, cyanosis, without edema. Neuro: Nonfocal exam, strength, 5 out of 5 Skin: Within normal limits without lesions. Psych: Mood and affect: Normal Labs/Gutierrez Results: Laboratory Tests 12/03 12/03 12/03 12/03 1430 0305 0125 0115 Blood Gas pH (7.35 - 7.45 PH) 7.42 pCO2 (35 - 45 TORR) 24 L pO2 (80 - 100 TORR) 85 HCO3 (21 - 28 MEQ/L) 15 L ABG O2 Sat (Measured) (>96.0 %) 94.0 L P-50 (Temp Corrected) Y Carboxyhemoglobin (1.5 - 5.0 %) 0.7 L O2 Concentration % 3 LPM Temperature (97.0 - 100.0 FARH) 101.4 H O2 Delivery Method N/C Chemistry Sodium (137 - 145 mmol/L) 140 142 Potassium (3.5 - 5.1 mmol/L) 4.1 3.5 Chloride (98 - 107 mmol/L) 109 H 111 H Carbon Dioxide (22 - 30 mmol/L) 16 L 17 L Anion Gap (5 - 16) 16 14 BUN (7 - 17 mg/dL) 12 10 Creatinine (0.5 - 1.0 mg/dL) 1.1 H 1.2 H Estimated GFR (>60 ml/min) 49 L 44 L BUN/Creatinine Ratio (7 - 25 %) 10.9 8.3 Magnesium (1.6 - 2.3 mg/dL) 1.7 0.8 *L Total Bilirubin (0.2 - 1.3 mg/dL) 0.3 Direct Bilirubin (< 0.4 mg/dL) 0.3 AST (14 - 36 U/L) 53 H ALT (9 - 52 U/L) 49 Alkaline Phosphatase (<127 U/L) 28 Troponin I (< 0.11 ng/ml) 0.03 Osz-S-Jjitsxmqtmx Pept (<125 pg/mL) 2230 H Total Protein (6.3 - 8.2 g/dL) 6.3 Albumin (3.5 - 5.0 g/dL) 3.4 L Coagulation PT (9.4 - 12.5 SEC) 13.1 H INR (0.90 - 1.19) 1.25 H D-Dimer High Sensitivty (0 - 243 ng/ml) 403 H Miscellaneous Phlebotomy Draw Site RIGHT RADIAL 12/03 12/02 0015 1654 Coagulation PT Cancelled INR Cancelled Hematology CBC w Diff NO MAN DIFF REQ WBC (4.8 - 10.8 /CUMM) 6.8 RBC (4.20 - 5.40 /CUMM) 3.20 L Hgb (12.0 - 16.0 G/DL) 9.8 L Hct (37 - 47 %) 28.3 L MCV (81.0 - 99.0 FL) 88.4 MCH (27.0 - 31.0 PG) 30.5 RDW (11.5 - 14.5 %) 12.9 Plt Count (130 - 400 /CUMM) 225 MPV (7.4 - 10.4 FL) 8.6 Gran % (42.2 - 75.2 %) 79.3 H Lymphocytes % (20.5 - 51.1 %) 14.8 L Monocytes % (1.7 - 9.3 %) 4.5 Eosinophils % (0 - 5 %) 1.3 Basophils % (0.0 - 2.0 %) 0.1 Absolute Granulocytes (1.4 - 6.5 /CUMM) 5.4 Absolute Lymphocytes (1.2 - 3.4 /CUMM) 1.0 L Absolute Monocytes (0.10 - 0.60 /CUMM) 0.3 Absolute Eosinophils (0.0 - 0.7 /CUMM) 0.1 Absolute Basophils (0.0 - 0.2 /CUMM) 0 PUBS MCHC (33.0 - 37.0 G/DL) 34.4 12/02 12/02 1400 0618 Chemistry Sodium (137 - 145 mmol/L) 145 Potassium (3.5 - 5.1 mmol/L) 3.7 Chloride (98 - 107 mmol/L) 117 H Carbon Dioxide (22 - 30 mmol/L) 16 L Anion Gap (5 - 16) 12 BUN (7 - 17 mg/dL) 13 Creatinine (0.5 - 1.0 mg/dL) 1.1 H Estimated GFR (>60 ml/min) 49 L BUN/Creatinine Ratio (7 - 25 %) 11.8 Total Bilirubin (0.2 - 1.3 mg/dL) 0.2 Direct Bilirubin (< 0.4 mg/dL) 0.2 AST (14 - 36 U/L) 66 H ALT (9 - 52 U/L) 55 H Alkaline Phosphatase (<127 U/L) 22 Total Protein (6.3 - 8.2 g/dL) 5.5 L Albumin (3.5 - 5.0 g/dL) 2.9 L Hematology CBC w Diff NO MAN DIFF REQ NO MAN DIFF REQ WBC (4.8 - 10.8 /CUMM) 5.3 4.3 L RBC (4.20 - 5.40 /CUMM) 2.97 L 2.99 L Hgb (12.0 - 16.0 G/DL) 9.0 L 9.0 L Hct (37 - 47 %) 26.8 L 27.1 L MCV (81.0 - 99.0 FL) 90.3 90.7 MCH (27.0 - 31.0 PG) 30.4 30.2 RDW (11.5 - 14.5 %) 13.3 13.1 Plt Count (130 - 400 /CUMM) 203 202 MPV (7.4 - 10.4 FL) 9.5 8.9 Gran % (42.2 - 75.2 %) 81.3 H 77.4 H Lymphocytes % (20.5 - 51.1 %) 11.4 L 16.2 L Monocytes % (1.7 - 9.3 %) 5.3 4.5 Eosinophils % (0 - 5 %) 1.7 1.6 Basophils % (0.0 - 2.0 %) 0.3 0.3 Absolute Granulocytes (1.4 - 6.5 /CUMM) 4.3 3.3 Absolute Lymphocytes (1.2 - 3.4 /CUMM) 0.6 L 0.7 L Absolute Monocytes (0.10 - 0.60 /CUMM) 0.3 0.2 Absolute Eosinophils (0.0 - 0.7 /CUMM) 0.1 0.1 Absolute Basophils (0.0 - 0.2 /CUMM) 0 0 PUBS MCHC (33.0 - 37.0 G/DL) 33.6 33.3 Assessment/Plan Assessment/Plan 72-year-old woman with a past medical history of diabetes mellitus, hypertension , chronic congestive heart failure secondary to diastolic dysfunction. She presented to our hospital following 2 syncopal episodes in the setting of severe nausea and general malaise, and was found to have pneumonia and sepsis. Following admission, she received a high-volume resuscitation; however, subsequently had findings for congestive heart failure. Congestive heart failure: The patient underwent an echocardiogram in 2017 demonstrating her LV systolic function and restrictive filling pattern consistent with stage III diastolic dysfunction. Due to her presentation with sepsis, she received a total net input of approximately 5 L. This was likely the cause of her underlying congestive heart failure recurrence, and as her sepsis is currently improved, we will attempt to diurese mildly with a net output of approximately 1-2 L per day. We will otherwise continue with her outpatient cardiac regimen and titrate further is needed after discharge. Sepsis/pneumonia: Improved. Continue treatment as per medical team and infectious disease. Diabetes mellitus: The patient presented with apparent suboptimal control of her diabetes; however, this was in the setting of sepsis. We will continue to follow. Further treatment will be made as an outpatient by her primary care physician. Thank you for allowing us to participate in the care of your patient. Please do not hesitate to contact us further with any questions. Sincerely, Aj Tiwari MD [facility] Consult Acknowledgment - Thank you for your consult request.
--- NOTE | 2017-12-03 21:41 | ECHOCARDIOGRAM REPORT ---
NATHAN TIDWELL Age: 72 : 1945 Gender: F Exam Date: 12/03/2017 19:23 Exam Location: 1 [facility] Ht (in): 60 Wt (lb): 145 BSA: 1.69 BP: 154 / 68 Ordering Physician: Daron Alcazar MD Referring Physician: Aj Tiwari M.D. Technologist: Kamala Briseno RDCS Room Number: 187 Indications: HEART FAILURE Rhythm: Sinus Technical Quality: fair FINDINGS Left Ventricle Normal size left ventricle. Left ventricular wall thickness mildly increased. Normal left ventricular ejection fraction estimated at 60-65%. Right Ventricle Normal right ventricular size and function. Right Atrium Normal right atrial size. Left Atrium Normal left atrial size. Mitral Valve Mild mitral annular calcification. Trace to mild mitral regurgitation. Aortic Valve Diffuse thickening (sclerosis) of the aortic valve cusps without reduced excursion. Tricuspid Valve Tricuspid valve is normal in structure and function. Mild tricuspid regurgitation. Right ventricular systolic pressure estimated to be within the normal range at 12 mmHg. Pulmonic Valve Pulmonic valve not well visualized, grossly normal. Pericardium No pericardial effusion. Great Vessels Normal size aortic root. CONCLUSIONS Normal left ventricular systolic function with mild concentric hypertrophy. Aortic sclerosis without stenosis. No significant valvular abnormalities noted. Vimal Pratt M.D. (Electronically Signed) Final Date: 03 December 2017 21:40 MEASUREMENTS (Male / Female) Normal Values 2D ECHO LV Diastolic Diameter PLAX 3.6 cm 4.2 - 5.9 / 3.9 - 5.3 cm LV Systolic Diameter PLAX 2.4 cm 2.1 - 4.0 cm LV Fractional Shortening PLAX 33.3 % 25 - 46 % LV Ejection Fraction 2D Teich 63.0 % IVS Diastolic Thickness 1.1 cm LVPW Diastolic Thickness 1.2 cm LV Relative Wall Thickness 0.6 RV Internal Dim ED PLAX 2.3 cm 1.9 - 3.8 cm LVOT Diameter 1.8 cm Aortic Root Diameter 2.3 cm LA Systolic Diameter LX 3.3 cm 3.0 - 4.0 / 2.7 - 3.8 cm Ascending Aorta Diameter 2.7 cm DOPPLER AV Peak Velocity 179.0 cm/s AV Peak Gradient 12.8 mmHg AV Mean Velocity 114.0 cm/s AV Mean Gradient 6.0 mmHg AV Velocity Time Integral 36.8 cm LVOT Peak Velocity 77.5 cm/s LVOT Peak Gradient 2.4 mmHg LVOT Mean Velocity 53.7 cm/s LVOT Mean Gradient 1.0 mmHg LVOT Velocity Time Integral 17.2 cm LVOT Stroke Volume 43.8 cm AV Area Cont Eq vti 1.2 cm AV Area Cont Eq pk 1.1 cm MV Peak Velocity 132.0 cm/s MV Peak Gradient 7.0 mmHg MV Mean Velocity 71.8 cm/s MV Mean Gradient 3.0 mmHg Mitral E Point Velocity 113.0 cm/s Mitral A Point Velocity 102.0 cm/s Mitral E to A Ratio 1.1 MV PHT Velocity 142.0 cm/s MV Deceleration Hitchcock 849.0 cm/s MV Pressure Half Time 50.2 ms MV Area PHT 4.4 cm MV Deceleration Time 182.0 ms TR Peak Velocity 110.0 cm/s TR Peak Gradient 4.8 mmHg Right Atrial Pressure 5.0 mmHg Pulmonary Artery Systolic Pressu 9.8 mmHg Right Ventricular Systolic Press 9.8 mmHg PV Peak Velocity 108.0 cm/s PV Peak Gradient 4.7 mmHg PV Mean Velocity 72.8 cm/s PV Mean Gradient 3.0 mmHg PV Velocity Time Integral 22.3 cm LV E' Lateral Velocity 5.3 cm/s Mitral E to LV E' Lateral Ratio 21.4 LV E' Septal Velocity 6.1 cm/s Mitral E to LV E' Septal Ratio 18.4
[2017-12-03 22:10] VITALS: BP 138/70
[2017-12-04 06:05] VITALS: BP 136/82
[2017-12-04 08:09] LABS: ABSOLUTE BASOPHIL COUNT 0 /CUMM (0.0-0.2); ABSOLUTE EOSINOPHIL COUNT 0.2 /CUMM (0.0-0.7); ABSOLUTE LYMPH COUNT 1.2 /CUMM (1.2-3.4); ABSOLUTE MONOCYTE COUNT 0.3 /CUMM (0.10-0.60); BASOPHIL % 0.3 % (0.0-2.0); EOSINOPHIL % 3.7 % (0-5); GRANULOCYTE % 63.2 % (42.2-75.2); MEAN CORPUSCULAR HGB 30.3 PG (27.0-31.0); MEAN CORPUSCULAR HGB CONC 34.1 G/DL (33.0-37.0); MEAN CORPUSCULAR VOLUME 88.9 FL (81.0-99.0); MEAN PLATELET VOLUME 8.4 FL (7.4-10.4); PLATELET COUNT 276 /CUMM (130-400); RBC DISTRIBUTION WIDTH 13.1 % (11.5-14.5); RED BLOOD CELL CT 3.15 /CUMM (4.20-5.40); WHITE BLOOD CELL COUNT 4.7 /CUMM (4.8-10.8)
--- NOTE | 2017-12-04 08:51 | PN- Housestaff ---
Noe GRAY,Osman 12/04/17 0851: Subjective Follow-up For: Follow-up with gastroenteritis Lower GI bleed recovered CHF secondary to IV fluid overload recovered Complaints: no complaints Tele-Events Since Last Visit: No any overnight events Subjective: Patient is seen and examined at the bedside. She was feeling much better. She does not have any episode of shortness of breath, diarrhea. She denies for any blood in the stool. 1:00 PM - I was called and the patient was having severe dizziness after walking around. We took orthostatic vitals . Blood pressure 118/88 on lying, 110/78. On sitting, and 116/88 on standing. She was comfortable after she ate the lunch. We treated conservatively. Review of Systems Constitutional: Reports: no symptoms, weakness. Objective Last 24 Hrs of Vital Signs/I&O Vital Signs Date Time Temp Pulse Resp B/P B/P Pulse O2 O2 Flow FiO2 Mean Ox Delivery Rate 12/04 1532 97.8 68 20 134/86 96 12/04 0605 98.2 76 20 136/82 96 Room Air 12/03 2210 98.6 82 20 138/70 96 Room Air Intake & Output 12/04 1600 12/04 0800 12/04 0000 Intake Total 480 200 700 Output Total 350 Balance 480 200 350 Intake, IV 100 Intake, Oral 480 100 700 Output, Urine 350 Physical Exam General Appearance: Alert, Oriented X3, Cooperative, No Acute Distress Neck: No JVD, No thryomegaly Cardiovascular: Normal S1, Normal S2 Lungs: Clear to Auscultation, Normal Air Movement Abdomen: Soft, No Tenderness Extremities: No Clubbing, No Cyanosis, No Edema Current Medications: Current Medications Sig/Leslie Start time Last Medication Dose Route Stop Time Status Admin Acetaminophen 650 MG Q4P PRN 12/01 1600 AC 12/03 PO 0111 Albuterol Sulfate 2 PUF Q4P PRN 12/03 1400 AC INH Amoxicillin/ 500 MG Q12 12/04 1000 AC 12/04 Clavulanate Potassium PO 1248 Ampicillin Sodium/ 1,500 MG Q8 12/01 0600 DC 12/04 Sulbactam Sodium IV 0613 Sodium Chloride 100 ML Buspirone HCl 10 MG DAILY 12/01 1000 AC 12/04 PO 0900 Calcium Carbonate 1,000 MG DAILY 12/05 1000 AC PO Furosemide 20 MG DAILY 12/04 1000 AC 12/04 PO 0900 Insulin Aspart 0 TIDAC 12/02 1200 AC 12/04 SC 1231 Lactobacillus 1 CAP BID 12/02 1000 AC 12/04 Acidophilus PO 0900 Magnesium Sulfate 1 GM ONCE ONE 12/03 1615 DC 12/03 Dextrose/Water 100 ML IV 12/03 Omeprazole 20 MG DAILY AC 12/05 0700 AC PO Pantoprazole Sodium 40 MG DAILY 12/01 0430 DC 12/03 IV 0855 Last 24 Hrs of Lab/Gutierrez Results Last 24 Hrs of Labs/Mics: Laboratory Tests 12/04/17 0716: Anion Gap 13, Estimated GFR 55 L, BUN/Creatinine Ratio 12.0, Magnesium 1.8, CBC w Diff NO MAN DIFF REQ, RBC 3.15 L, MCV 88.9, MCH 30.3, RDW 13.1, MPV 8.4, Gran % 63.2, Lymphocytes % 26.4, Monocytes % 6.4, Eosinophils % 3.7, Basophils % 0.3, Absolute Granulocytes 3.0, Absolute Lymphocytes 1.2, Absolute Monocytes 0.3, Absolute Eosinophils 0.2, Absolute Basophils 0, PUBS MCHC 34.1 Assessment/Plan Assessment: Patient is a 72-year-old female with significant past medical history of asthma, ADHD, hypertension, stage III, diastolic failure, diabetes, nephrolithiasis, iron deficiency anemia, cirrhosis of the liver, UTI in May 2017, type 2 diabetes presented with chief complaints of acute episode of diarrhea associated with nausea and vomiting followed by syncopal episodes since one day. ED course -vital signs temperature 101.5, pulse 118, respiratory rate 20, blood pressure 174/82, SPO2 95% on room air. Blood workup showed hemoglobin 12 point 3 , hematocrit 30 6.5, platelet count 298, and sat 90 5.5, lymphocyte 2.1, and 77, serum sodium 142, potassium 4.1, chloride 113, anion gap 13, BUN 23, creatinine 1.1, GFR 49, lactic acid 3.3. Flu test was negative, blood cultures, stool cultures were taken. Chest x-ray showed streaky basilar opacity to nurse left heart border. Suspicion for pneumonia. Patient was admitted to general medicine floor, for treatment of left lower lobe pneumonia. She was started on Unasyn, IV fluids, and antacid. Acute on chronic CHF with preserved ejection fraction -recovered * We started patient on low-dose diuretic tab Lasix 20 mgs every alternate day. * We will follow cardiology rcms. Left lower lobe Pneumonia, possible aspiration, associated viral gastroenteritis - * We stopped Unasyn and started on Augmentin 500 milligrams twice a day for total 7 days * Orthostatic blood pressure * GENI, improved * Blood culture did not grow any bacteria. Lower GI bleed * Its improved * We will follow CBC, as needed. type2 DM - * Blood sugar measurement 3 times a day/at bedtime * NovoLog according to the sliding scale Diet -consistent carbohydrate 2. Diet CODE STATUS-full code DVT prophylaxis-ALP S/heparin Problem List: 1. Aspiration pneumonia 2. Viral gastroenteritis 3. Nausea and vomiting Pain Ratin Pain Location: not applicable Pain Goal: Remain pain free Pain Plan: Avoid NSAIDs Tomorrow's Labs & Rationales: CBCs, BEP for follow-up DVT/Prophylaxis: early ambulation low risk Roxy GRAY,Fahad 12/04/17 1040: Attending MD Review Statement Attending Statement Attending MD Statement: examined this patient, discuss w/resident/PA/CONFIDENTIAL INVESTIGATOR, agreed w/resident/PA/CONFIDENTIAL INVESTIGATOR, discussed with family, reviewed EMR data (avail), discussed with nursing, discussed with case mgmt, amended to note Attending Assessment/Plan: Patient seen and examined. Resting comfortably and is in any acute distress. No issues overnight reported by nursing staff. No events on telemetry. She is alert and oriented 3 and conversant appropriately. She ambulated freely around the unit. She reports that her diarrhea has resolved. She is not requiring oxygen supplementation and denies any complaints of shortness of breath. On examination she has good entry bilateral lungs are clear to auscultation. Abdomen is soft and nontender she has no peripheral edema. Recommendations: -Transition to oral antibiotic therapy. -Cardiology follow-up appreciated. Recommendations are to begin patient on Lasix every other day. We will begin those today and monitor renal function overnight. Renal function remains stable she may be discharged home tomorrow. - Diarrhea has resolved. Hemoglobin level is stable. No further gastrointestinal workup was recommended. -Anticipate discharge tomorrow if renal function is stable.
[2017-12-04] MEDS ORDERED: LASIX20 M1 PO (14:57)
[2017-12-04] MEDS ORDERED: AUGMENTIN 500-1 EACH PO (14:59)
--- NOTE | 2017-12-04 15:01 | Patient Discharge Instructions ---
Discharge Instructions General Discharge Information You were seen/treated for: You were seen here for the diarrhea, and treated with IV fluid and antibiotics. Special Instructions: Please follow-up with your PCP within a week of discharge. Please follow-up with your shake table operator within a week of discharge. Diet Recommended Diet: Heart Healthy Acute Coronary Syndrome Inclusion Criteria At DC or during hospital stay patient has or had the following: ACS DIAGNOSIS No Discharge Core Measures Meds if any: Prescribed or Continued at Discharge Meds if any: NOT Prescribed or Continued at Discharge Congestive Heart Failure Inclusion Criteria At DC or during hospital stay patient has or had the following: CHF DIAGNOSIS No Discharge Core Measures Meds if any: Prescribed or Continued at Discharge Meds if any: NOT Prescribed or Continued at Discharge Cerebrovascular accident Inclusion Criteria At DC or during hospital stay patient has or had the following: CVA/TIA Diagnosis No Discharge Core Measures Meds if any: Prescribed or Continued at Discharge Meds if any: NOT Prescribed or Continued at Discharge Venous thromboembolism Inclusion Criteria VTE Diagnosis No VTE Type NONE VTE Confirmed by (Test) NONE Discharge Core Measures - Per Current guidelines, there needs to be overlap - treatment for the first 5 days of Warfarin therapy. - If discharged on Warfarin prior to 5 days of - overlap therapy, the patient will need to be - assessed for post discharge needs including - *Post discharge parental anticoagulation - *Warfarin and/or parental anticoagulation education - *Follow up date to check INR post discharge At least 5 days overlap therapy as Inpatient No Meds if any: Prescribed or Continued at Discharge Note: Overlap Therapy is Warfarin and Anticoagulant Meds if any: NOT Prescribed or Continued at Discharge
[2017-12-04 15:32] VITALS: BP 134/86
[2017-12-04] MEDS ORDERED: CALCIUM 500 +1 EAC5 PO (15:33)
[2017-12-04 22:25] VITALS: BP 170/70
[2017-12-05 06:18] VITALS: BP 164/78
--- NOTE | 2017-12-05 08:31 | PN- Housestaff ---
Noe GRAY,Osman 12/05/17 0830: Subjective Follow-up For: Follow-up acute gastroenteritis Follow-up left lower lobe pneumonia Complaints: no complaints Tele-Events Since Last Visit: Off telemetric monitoring Subjective: Patient is seen and examined at the bedside. She was comfortable. She denies any shortness of breath, abdominal pain, watery diarrhea. Review of Systems Constitutional: Denies: no symptoms. Objective Last 24 Hrs of Vital Signs/I&O Vital Signs Date Time Temp Pulse Resp B/P B/P Pulse O2 O2 Flow FiO2 Mean Ox Delivery Rate 12/05 06 98.4 70 18 164/78 96 Room Air 12/04 2225 98.6 86 18 170/70 97 Intake & Output 12/05 1600 12/05 0800 12/05 0000 Intake Total 200 200 Output Total Balance 200 200 Intake, Oral 200 200 Physical Exam General Appearance: Alert, Oriented X3, Cooperative, No Acute Distress Cardiovascular: Normal S1, Normal S2 Lungs: Clear to Auscultation, Normal Air Movement Abdomen: Soft, No Tenderness Extremities: No Clubbing, No Cyanosis, No Edema Current Medications: Current Medications Sig/Leslie Start time Last Medication Dose Route Stop Time Status Admin Acetaminophen 650 MG Q4P PRN 12/01 1600 DCD 12/03 PO 0111 Albuterol Sulfate 2 PUF Q4P PRN 12/03 1400 DCD INH Amoxicillin/ 500 MG Q12 12/04 1000 DCD 12/05 Clavulanate Potassium PO 0802 Buspirone HCl 10 MG DAILY 12/01 1000 DCD 12/05 PO 0802 Calcium Carbonate 1,000 MG DAILY 12/05 1000 DCD 12/05 PO 0802 Furosemide 20 MG DAILY 12/04 1000 DCD 12/05 PO 0802 Insulin Aspart 0 TIDAC 12/02 1200 DCD 12/05 SC 0801 Lactobacillus 1 CAP BID 12/02 1000 DCD 12/05 Acidophilus PO 0802 Omeprazole 20 MG DAILY AC 12/05 0700 DCD 12/05 PO 0548 Last 24 Hrs of Lab/Gutierrez Results Last 24 Hrs of Labs/Mics: Laboratory Tests 12/05/17 0651: Anion Gap 14, Estimated GFR 49 L, BUN/Creatinine Ratio 13.6, CBC w Diff NO MAN DIFF REQ, RBC 3.21 L, MCV 88.9, MCH 30.4, RDW 12.8, MPV 8.5, Gran % 56.0, Lymphocytes % 30.6, Monocytes % 9.5 H, Eosinophils % 3.5, Basophils % 0.4, Absolute Granulocytes 2.6, Absolute Lymphocytes 1.4, Absolute Monocytes 0.4, Absolute Eosinophils 0.2, Absolute Basophils 0, PUBS MCHC 34.2 Assessment/Plan Assessment: Patient is a 72-year-old female with significant past medical history of asthma, ADHD, hypertension, stage III, diastolic failure, diabetes, nephrolithiasis, iron deficiency anemia, cirrhosis of the liver, UTI in May 2017, type 2 diabetes presented with chief complaints of acute episode of diarrhea associated with nausea and vomiting followed by syncopal episodes since one day. ED course -vital signs temperature 101.5, pulse 118, respiratory rate 20, blood pressure 174/82, SPO2 95% on room air. Blood workup showed hemoglobin 12 point 3 , hematocrit 30 6.5, platelet count 298, and sat 90 5.5, lymphocyte 2.1, and 77, serum sodium 142, potassium 4.1, chloride 113, anion gap 13, BUN 23, creatinine 1.1, GFR 49, lactic acid 3.3. Flu test was negative, blood cultures, stool cultures were taken. Chest x-ray showed streaky basilar opacity to nurse left heart border. Suspicion for pneumonia. Patient was admitted to general medicine floor, for treatment of left lower lobe pneumonia. She was started on Unasyn, IV fluids, and antacid. Plan - Discharge today Acute on chronic CHF with preserved ejection fraction -recovered * We discharged patient on low-dose diuretic tab Lasix 20 mgs every alternate day. * We advised to follow-up with forensic scientist within a week of discharge Left lower lobe Pneumonia, possible aspiration/community-acquired pneumonia with gastroenteritis - * Discharged on Augmentin 500 milligrams twice a day for total 7 days * Blood culture did not grow any bacteria. * Advised to follow-up with the PCP within a week of discharge Lower GI bleed * Its improved * We will follow CBC. Hemoglobin at the time of discharge was 9.8. type2 DM - * We discharge the patient on her home medication Diet -consistent carbohydrate 2 Diet CODE STATUS-full code DVT prophylaxis-ALP S/heparin Problem List: 1. Aspiration pneumonia 2. Viral gastroenteritis 3. Diabetes Pain Ratin Pain Location: n/a Pain Goal: Remain pain free Pain Plan: n/a Tomorrow's Labs & Rationales: n/a DVT/Prophylaxis: early ambulation low risk Roxy GRAY,Fahad 12/05/17 1243: Attending MD Review Statement Attending Statement Attending MD Statement: examined this patient, discuss w/resident/PA/GEAR SHAPER SET UP OPERATOR, agreed w/resident/PA/GEAR SHAPER SET UP OPERATOR, reviewed EMR data (avail), discussed with nursing, discussed with case mgmt, amended to note Attending Assessment/Plan: Patient seen and examined. Resting comfortably much in any acute distress. No issues overnight reported by nursing staff. Diarrhea has resolved. Ambulating freely around the unit. She is not requiring oxygen supplementation. On examination lungs are clear bilaterally abdomen soft, nontender she has no peripheral edema. She is medically stable to be discharged home today. She is to continue Augmentin to complete antibiotic course for community acquired pneumonia. Recommendations of the cardiology service she is to continue on Lasix 20 mg orally every other day for chronic stage III diastolic dysfunction. During this hospitalization she had mild decompensation secondary to volume overload from fluid resuscitation that improved following IV diuresis.
[2017-12-05 08:56] LABS: ABSOLUTE BASOPHIL COUNT 0 /CUMM (0.0-0.2); ABSOLUTE EOSINOPHIL COUNT 0.2 /CUMM (0.0-0.7); ABSOLUTE GRANULOCYTE CT 2.6 /CUMM (1.4-6.5); ABSOLUTE LYMPH COUNT 1.4 /CUMM (1.2-3.4); ABSOLUTE MONOCYTE COUNT 0.4 /CUMM (0.10-0.60); BASOPHIL % 0.4 % (0.0-2.0); EOSINOPHIL % 3.5 % (0-5); HEMATOCRIT 28.5 % (37-47); MEAN CORPUSCULAR HGB 30.4 PG (27.0-31.0); MEAN CORPUSCULAR HGB CONC 34.2 G/DL (33.0-37.0); MEAN CORPUSCULAR VOLUME 88.9 FL (81.0-99.0); MEAN PLATELET VOLUME 8.5 FL (7.4-10.4); PLATELET COUNT 300 /CUMM (130-400); RBC DISTRIBUTION WIDTH 12.8 % (11.5-14.5); RED BLOOD CELL CT 3.21 /CUMM (4.20-5.40); WHITE BLOOD CELL COUNT 4.6 /CUMM (4.8-10.8)
[2017-12-05] MEDS ORDERED: JANUVIA100 M1 PO (08:57)
== END 2017-12-05 11:45 | disposition home health service (06) | DRG 871 ==
LOC: ERH 23:35 → ERHI 12-01 02:26 → 1NO 12-01 02:26 → CANRESERV 12-01 03:03 → ENRESERV 12-01 03:03 → EDBEDREQ 12-01 04:09 → 1NO 12-01 05:02 → ENPENDDIS 12-05 08:50 → ENTRNSPT 12-05 11:37 → EDTRNSPTSTS 12-05 11:41 → 1NO 12-05 11:45 → CMPTRNSPT 12-05 11:54
PROVIDERS: Internal Medicine; Internal Medicine Adolescent Medicine; Internal Medicine Endocrinology, Diabetes & Metabolism; Pediatrics; Student in an Organized Health Care Education/Training Program
DX: A41.9 Sepsis, unspecified organism (principal); J69.0 Pneumonitis due to inhalation of food and vomit; J96.01 Acute respiratory failure with hypoxia; I50.33 Acute on chronic diastolic (congestive) heart failure; E87.2 Acidosis; I13.0 Hypertensive heart and chronic kidney disease with heart failure and stage 1 through stage 4 chronic kidney disease, or unspecified chronic kidney disease; E11.22 Type 2 diabetes mellitus with diabetic chronic kidney disease; I27.20 Pulmonary hypertension, unspecified; E86.0 Dehydration; N18.3 Chronic kidney disease, stage 3 (moderate); K75.81 Nonalcoholic steatohepatitis (NASH); K64.8 Other hemorrhoids; Z79.84 Long term (current) use of oral hypoglycemic drugs; K44.9 Diaphragmatic hernia without obstruction or gangrene; A08.4 Viral intestinal infection, unspecified; Z86.010 Personal history of colon polyps; J45.909 Unspecified asthma, uncomplicated
CPT/HCPCS: 1NP; 36415; 71045; 74176; 81001; 82436; 87040; 87045; 87070; 87086; 87449; 87450; 87804; 87804-59; 93005; 93010; 93306; 96361; 96374; 96375; 99291; J0131; J0696; J1644; J1815; J1940; J2405; J3490; J7040